=== PATIENT | male | born 1970 | race Caucasian/White ===

== ENCOUNTER 2018-10-18 15:29 | Emergency (ER) | payer OTHER ==
--- NOTE | 2018-10-18 15:38 | ERPHSYRPT ---
- History of Present Illness Time Seen by Provider: 10/18/18 15:37 Source: patient Exam Limitations: no limitations Physician History: 48 y/o morbidly obese white male with h/o renal failure on t,, sat dialysis copd and hyperkalemia. pt continues to smoke. pt was having worsening sx of soa and leg cramps over last 24 hours. legs were hurting. last time this happened he was found to have hyperkalemia. pts reference and instruction librarian is dr. barbra dawson but pt and family would like to be transferred to [facility] if necessary as it is more convenient for them. pt does not make urine. pt has had cardiac arrest secondary to elevated potassium levels in the past Timing/Duration: today Activities at Onset: none Severity of Dyspnea-Max: mild Severity of Dyspnea-Current: mild Possible Cause: occasional episodes Associated Symptoms: muscle spasms feet ( and legs) Allergies/Adverse Reactions: ciprofloxacin [From Cipro] Allergy (Severe, Verified 09/23/15 19:42) Difficulty Breathing ciprofloxacin HCl [From Cipro] Allergy (Severe, Verified 09/23/15 19:42) Difficulty Breathing etodolac [From Lodine] Allergy (Severe, Verified 09/23/15 19:42) Difficulty Breathing Home Medications: Allopurinol 300 mg [Zyloprim 300 mg] 300 mg PO DAILY 03/07/13 [History] Citalopram Hydrobromide 20 mg* [ceLEXa 20 MG] 10 mg PO DAILY 03/07/13 [ History] Sevelamer Carbonate [Renvela] 4 tab PO AC 03/07/13 [History] Amlodipine Besylate 5 mg [Norvasc 5 mg] 10 mg PO DAILY 10/18/18 [History] Calcium Acetate 2 cap PO TID 10/18/18 [History] Carvedilol 25 mg PO BID 10/18/18 [History] PANTOPRAZOLE 40 mg Tablet [Protonix 40MG Tablet] 40 mg PO QAM 10/18/18 [ History] Hx Tetanus, Diphtheria Vaccination/Date Given: Yes Hx Influenza Vaccination/Date Given: Yes Hx Pneumococcal Vaccination/Date Given: Yes - Review of Systems Constitutional: No Symptoms Eyes: No Symptoms Ears, Nose, & Throat: No Symptoms Respiratory: Dyspnea Abdominal/Gastrointestinal: Nausea, No Abdominal Pain, No Vomiting, No Diarrhea Genitourinary Symptoms: No Symptoms Musculoskeletal: Myalgias Skin: No Symptoms Neurological: No Symptoms Psychological: Anxiety Endocrine: No Symptoms Hematologic/Lymphatic: No Symptoms Immunological/Allergic: No Symptoms All Other Systems: Reviewed and Negative - Past Medical History Pertinent Past Medical History: Yes Neurological History: No Pertinent History ENT History: No Pertinent History Cardiac History: Hypertension Respiratory History: Asthma Endocrine Medical History: No Pertinent History Musculoskeletal History: No Pertinent History GI Medical History: GERD History: Dialysis, Renal Disease Psycho-Social History: No Pertinent History Male Reproductive Disorders: No Pertinent History Other Medical History: LEFT AV FISTULA - Past Surgical History Past Surgical History: Yes Neuro Surgical History: No Pertinent History Cardiac: No Pertinent History Respiratory: No Pertinent History Gastrointestinal: No Pertinent History Genitourinary: Other Musculoskeletal: No Pertinent History Male Surgical History: No Pertinent History Other Surgical History: bladder scope - renal biopsy - fistula and then graft - permacath - Social History Smoking Status: Former smoker Exposure to second hand smoke: No Drug Use: none Patient Lives Alone: No - Nursing Vital Signs Nursing Vital Signs: Initial Vital Signs Pulse Rate 46 L 10/18/18 15:30 Blood Pressure 158/91 10/18/18 15:30 O2 Sat by Pulse Oximetry 100 10/18/18 15:30 Pain Scale Pain Intensity 0 - Physical Exam General Appearance: mild distress, alert, anxiety Eye Exam: PERRL/EOMI Ears, Nose, Throat Exam: hearing grossly normal, normal ENT inspection, normal pharynx Neck Exam: normal inspection, non-tender, supple, full range of motion Respiratory Exam: normal breath sounds, lungs clear, airway intact, No chest tenderness, No respiratory distress Cardiovascular/Chest Exam: normal heart sounds, regular rate/rhythm Abdominal/Gastrointestinal Exam: soft, normal bowel sounds, No tenderness Rectal Exam: not done Extremity Exam: non-tender, normal range of motion, normal inspection Neurologic Exam: alert, oriented x 3, cooperative, pediatric oncologist II-XII nml as tested, normal mood/affect, nml cerebellar function Skin Exam: normal color, warm, dry Lymphatic Exam: No adenopathy SpO2 Interpretation: normal SpO2: 100 O2 Delivery: Room Air - Course Nursing assessment & vital signs reviewed: Yes EKG Interpreted by Me: RATE (44), Sinus Rhythm, Right Bundle Branch Block, Non- specific ST Changes, Other (comparison ekg on 10/13/14. all new findings. ekg on 10/13/14 all normal ) Ordered Tests: Active Orders 24 hr Category Date Time Status Material Loader STAT Care 10/18/18 15:40 Active EKG-ER Only STAT Care 10/18/18 15:40 Active IV Insertion STAT Care 10/18/18 15:40 Active Pulse Oximetry (ED) STAT Care 10/18/18 15:40 Active CHEST 1 VIEW (PORTABLE) Stat Exams 10/18/18 15:47 Completed CBC W DIFF Stat Lab 10/18/18 15:40 Completed CMP Stat Lab 10/18/18 15:40 Completed D-DIMER QUANTITATION Stat Lab 10/18/18 15:40 Completed NT PRO BNP Stat Lab 10/18/18 15:40 Completed PROTIME WITH INR Stat Lab 10/18/18 15:40 Completed TROPONIN Q3H Lab 10/18/18 15:40 Completed TROPONIN Q3H Lab 10/18/18 18:45 Ordered TROPONIN Q3H Lab 10/18/18 21:45 Ordered TROPONIN Q3H Lab 10/19/18 00:45 Ordered TROPONIN Q3H Lab 10/19/18 03:45 Ordered Peak Expiratory Flow Rate ONCE RT 10/18/18 16:32 Active Respiratory Therapy Assessment STAT RT 10/18/18 16:32 Active Medication Summary Generic Name Dose Route Start Last Admin Trade Name Freq PRN Reason Stop Dose Admin Sodium Chloride 50 ml 10/18/18 18:15 Sodium Chloride 0.9% 50 Ml IV 11/17/18 18:14 1XONLY CANDICE Discontinued Medications Generic Name Dose Route Start Last Admin Trade Name Freq PRN Reason Stop Dose Admin Albuterol Sulfate Confirm 10/18/18 16:28 Proventil 2.5 Mg/3 Ml Neb Administered 10/18/18 16:29 Dose 2.5 mg IH .STK-MED ONE Albuterol Sulfate 2.5 mg 10/18/18 16:31 10/18/18 16:30 Proventil 2.5 Mg/3 Ml Neb IH 10/18/18 16:32 2.5 mg STAT ONE Administration Calcium Chloride 1,000 mg 10/18/18 16:30 10/18/18 16:53 Calcium Chloride 10% 1000 Mg IV 10/18/18 16:31 1,000 mg STAT ONE Administration Calcium Chloride Confirm 10/18/18 16:40 Calcium Chloride 10% 1000 Mg Administered 10/18/18 16:41 Dose 1,000 mg .ROUTE .STK-MED ONE Dextrose 50 ml 10/18/18 17:28 10/18/18 17:34 D50w 50 Ml Abboject IV 10/18/18 17:29 50 ml STAT ONE Administration Dextrose Confirm 10/18/18 17:32 D50w 50 Ml Abboject Administered 10/18/18 17:33 Dose 50 ml IV .STK-MED ONE Sodium Chloride Confirm 10/18/18 16:43 Sodium Chloride 0.9% 50 Ml Administered 10/18/18 16:44 Dose 50 mls @ ud IV .STK-MED ONE Insulin Human Regular 4 unit 10/18/18 17:29 10/18/18 17:34 Novolin R IV 10/18/18 17:30 4 unit STAT ONE Administration Insulin Human Regular Confirm 10/18/18 17:31 Novolin R Administered 10/18/18 17:32 Dose 4 unit .ROUTE .STK-MED ONE Ondansetron HCl 4 mg 10/18/18 16:04 10/18/18 16:12 Zofran 4 Mg/2 Ml Vial IV 10/18/18 16:05 4 mg STAT ONE Administration Ondansetron HCl Confirm 10/18/18 16:10 Zofran 4 Mg/2 Ml Vial Administered 10/18/18 16:11 Dose 4 mg .ROUTE .STK-MED ONE Sodium Chloride 50 ml 10/18/18 17:33 Sodium Chloride 0.9% 50 Ml IV 10/18/18 17:34 1XONLY STA Sodium Polystyrene Sulfonate 30 g 10/18/18 16:32 10/18/18 16:53 Kayexylate 15 Gm/60 Ml PO 10/18/18 16:33 Not Given STAT ONE Sodium Polystyrene Sulfonate Confirm 10/18/18 16:40 Kayexylate 15 Gm/60 Ml Administered 10/18/18 16:41 Dose 30 g .ROUTE .STK-MED ONE Lab/Rad Data: Laboratory Result Diagrams 10/18/18 15:40 10/18/18 15:40 Laboratory Results 10/18/18 10/18/18 10/18/18 Range/Units 15:40 15:40 15:40 WBC (4.0-10.5) K/mm3 RBC (4.1-5.6) M/mm3 Hgb (12.5-18.0) gm/dl Hct (42-50) % MCV (78-100) fl MCH (26-32) pg MCHC (32-36) g/dl RDW (11.5-14.0) % Plt Count (150-450) K/mm3 MPV (6-9.5) fl Gran % (36.0-66.0) % Eos # (Auto) (0-0.5) Absolute Lymphs (auto) (1.0-4.6) Absolute Monos (auto) (0.0-1.3) Lymphocytes % (24.0-44.0) % Monocytes % (0.0-12.0) % Eosinophils % (0.00-5.0) % Basophils % (0.0-0.4) % Absolute Granulocytes (1.4-6.9) Basophils # (0-0.4) PT 12.7 (8.83-12.87) SECONDS INR 1.09 (0.8-3.0) D-Dimer 477 (215-500) ng/mL Sodium 133 L (137-145) mmol/L Potassium 7.9 H* (3.5-5.1) mmol/L Chloride 87 L (98-107) mmol/L Carbon Dioxide 25 (22-30) mmol/L Anion Gap 28.5 H (5-15) MEQ/L BUN 73 H (9-20) mg/dL Creatinine 14.58 H (0.66-1.25) mg/dL Estimated GFR 3.8 ML/MIN Glucose 100 (74-106) mg/dL Calcium 8.3 L (8.4-10.2) mg/dL Total Bilirubin 1.00 (0.2-1.3) mg/dL AST 24 (17-59) U/L ALT 20 (0-50) U/L Alkaline Phosphatase 160 H (38-126) U/L Troponin I 0.034 (0.000-0.034) ng/mL NT-Pro-B Natriuret Pep 9960 H (0-450) pg/mL Serum Total Protein 8.1 (6.3-8.2) g/dL Albumin 4.8 (3.5-5.0) g/dL 10/18/18 Range/Units 15:40 WBC 8.0 (4.0-10.5) K/mm3 RBC 4.08 L (4.1-5.6) M/mm3 Hgb 13.4 (12.5-18.0) gm/dl Hct 38.4 L (42-50) % MCV 94.1 (78-100) fl MCH 32.8 H (26-32) pg MCHC 34.9 (32-36) g/dl RDW 13.9 (11.5-14.0) % Plt Count 205 (150-450) K/mm3 MPV 11.2 H (6-9.5) fl Gran % 69.8 H (36.0-66.0) % Eos # (Auto) 0.20 (0-0.5) Absolute Lymphs (auto) 1.43 (1.0-4.6) Absolute Monos (auto) 0.74 (0.0-1.3) Lymphocytes % 17.9 L (24.0-44.0) % Monocytes % 9.3 (0.0-12.0) % Eosinophils % 2.5 (0.00-5.0) % Basophils % 0.5 (0.0-0.4) % Absolute Granulocytes 5.59 (1.4-6.9) Basophils # 0.04 (0-0.4) PT (8.83-12.87) SECONDS INR (0.8-3.0) D-Dimer (215-500) ng/mL Sodium (137-145) mmol/L Potassium (3.5-5.1) mmol/L Chloride (98-107) mmol/L Carbon Dioxide (22-30) mmol/L Anion Gap (5-15) MEQ/L BUN (9-20) mg/dL Creatinine (0.66-1.25) mg/dL Estimated GFR ML/MIN Glucose (74-106) mg/dL Calcium (8.4-10.2) mg/dL Total Bilirubin (0.2-1.3) mg/dL AST (17-59) U/L ALT (0-50) U/L Alkaline Phosphatase (38-126) U/L Troponin I (0.000-0.034) ng/mL NT-Pro-B Natriuret Pep (0-450) pg/mL Serum Total Protein (6.3-8.2) g/dL Albumin (3.5-5.0) g/dL - Progress Progress: improved, re-examined Air Movement: good Progress Note: 10/18/18 18:[address] Meier, reference and instruction librarian at [facility]. reviewed pt hx, condition, labs, ekg results. he accepts pt in transfer. he wants pt to receive kayexylate. pt refused earlier. i will give pt pre kayexylate iv pepcid and dilaudid. Blood Culture(s) Obtained: No Antibiotics given: No Counseled pt/family regarding: lab results, diagnosis, need for follow-up - Departure Departure Disposition: Transfer Clinical Impression: Hyperkalemia, Renal failure Condition: Stable Critical Care Time: Yes Critical Care Time(excluding separately billable procedures): 30-74 minutes Referrals: MIKAEL MIGUEL [Primary Care Provider] -
[2018-10-18 15:46] LABS: BASOPHIL % 0.5 % (0.0-0.4); Basophil (Absolute #) 0.04 (0-0.4); Eosinophil % 2.5 % (0.00-5.0); Granulocyte Absolute (ANC) 5.59 (1.4-6.9); Granulocytes % 69.8 % (36.0-66.0); Hematocrit 38.4 % (42-50); Hemoglobin 13.4 gm/dl (12.5-18.0); Lymphocyte (Absolute #) 1.43 (1.0-4.6); Lymphocytes % 17.9 % (24.0-44.0); Mean Cell Volume 94.1 fl (78-100); Mean Corpuscular Hemoglobin 32.8 pg (26-32); Mean Corpuscular Hgb Concent. 34.9 g/dl (32-36); Mean Platelet Volume 11.2 fl (6-9.5); Monocyte (Absolute #) 0.74 (0.0-1.3); Monocytes % 9.3 % (0.0-12.0); Platelet Count 205 K/mm3 (150-450); Red Blood Count 4.08 M/mm3 (4.1-5.6); Red Cell Distribution Width 13.9 % (11.5-14.0)
[2018-10-18 15:50] LABS: INR 1.09 (0.8-3.0); PROTIME 12.7 SECONDS (8.83-12.87)
[2018-10-18] MEDS ORDERED: Zofran 4 MG/2 ML VIAL IV ONE (16:04)
--- NOTE | 2018-10-18 16:09 | XRAY ---
Indication: Short of breath. Comparison: August 09, 2015. Portable chest less inflated again with calcified granulomas. No focal infiltrate, consolidation, or large effusion. Heart remains borderline enlarged. Vascularity normal. Bony thorax intact. Impression: Nonacute chest with chronic features.
[2018-10-18] MEDS ORDERED: Zofran 4 MG/2 ML VIAL ONE (16:10)
[2018-10-18 16:22] LABS: ALBUMIN 4.8 g/dL (3.5-5.0); ANION GAP 28.5 MEQ/L (5-15); Calcium 8.3 mg/dL (8.4-10.2); Total Protein 8.1 g/dL (6.3-8.2)
[2018-10-18 16:23] LABS: Creatinine 1 14.58 mg/dL (0.66-1.25)
[2018-10-18 16:25] LABS: Potassium 7.9 mmol/L (3.5-5.1)
[2018-10-18] MEDS ORDERED: PROVENTIL 2.5 MG/3 ML NEB IH ONE ×2 (16:28→16:31)
[2018-10-18] MEDS ORDERED: CALCIUM CHLORIDE 10% 1000 MG IV ONE (16:30)
[2018-10-18] MEDS ORDERED: Kayexylate 15 GM/60 ML PO ONE ×2 (16:32→18:39)
[2018-10-18] MEDS ORDERED: Kayexylate 15 GM/60 ML ONE (16:40)
[2018-10-18] MEDS ORDERED: CALCIUM CHLORIDE 10% 1000 MG ONE (16:40)
[2018-10-18] MEDS ORDERED: D50W 50 ml Abboject IV ONE ×2 (17:28→17:32)
[2018-10-18] MEDS ORDERED: NovoLIN R IV ONE (17:29)
[2018-10-18] MEDS ORDERED: NovoLIN R ONE (17:31)
[2018-10-18] MEDS ORDERED: Sodium Chloride 0.9% 50 ML IV STA (17:33)
[2018-10-18 18:15] VITALS: BP 118/81; PULSE 58
[2018-10-18] MEDS ORDERED: Sodium Chloride 0.9% 50 ML IV SCH (18:15)
[2018-10-18 18:39] VITALS: O2SAT 100
[2018-10-18] MEDS ORDERED: Pepcid 20 MG VIAL IV ONE ×2 (18:39→18:57)
[2018-10-18] MEDS ORDERED: Hydromorphone 1 mg/ml Ampule IV ONE (18:40)
[2018-10-18] MEDS ORDERED: Hydromorphone 1 mg/ml Ampule ONE (18:58)
== END 2018-10-18 19:15 | disposition short-term general hospital (02) ==
LOC: ED 15:29
DX: E87.5 Hyperkalemia (principal); N19 Unspecified kidney failure; Z99.2 Dependence on renal dialysis; J44.9 Chronic obstructive pulmonary disease, unspecified; M62.838 Other muscle spasm; F41.9 Anxiety disorder, unspecified; K21.9 Gastro-esophageal reflux disease without esophagitis; I10 Essential (primary) hypertension; J45.909 Unspecified asthma, uncomplicated; Z79.899 Other long term (current) drug therapy
CPT/HCPCS: 36000; 36415; 71045; 80053; 83880; 84484; 85025; 85379; 85610; 93005; 93041; 94150; 94640; 96374; 96375; 99285; J1170; J2405; J7609; A9270-GY

== ENCOUNTER 2018-10-26 16:39 | Emergency (ER) | payer OTHER ==
[2018-10-26 18:35] VITALS: BP 119/83; PULSE 79; O2SAT 95
[2018-10-26] MEDS ORDERED: Erythromycin 3.5 GM OPHTH. OP ONE (19:19)
[2018-10-26] MEDS ORDERED: NORCO 5/325 MG PO ONE (19:19)
[2018-10-26] MEDS ORDERED: Visine OPHTHALMIC 15 ML OP ONE (19:20)
--- NOTE | 2018-10-26 19:35 | ERPHSYRPT ---
- History of Present Illness Time Seen by Provider: 10/26/18 19:00 Source: patient, family Patient Subjective Stated Complaint: states left eye pain since yesterday. denies any injury. Triage Nursing Assessment: ambulated to room per self. skin w/d, color sallow. hx ckd and does dialysis. wears bifocals. eye test completed. has small yellow area noted left of pupil. no drainage noted. Physician History: 48 y/o white male presents with lateral eye burning, pain and fb sensation. no known injury. Timing/Duration: today Location: left eye Severity: mild Apparent Injury: no Associated Symptoms: pain, burning, redness, foreign body sensation Visual Assistive Devices: Glasses Chemical Exposure: No Allergies/Adverse Reactions: ciprofloxacin [From Cipro] Allergy (Severe, Verified 10/26/18 17:08) Difficulty Breathing ciprofloxacin HCl [From Cipro] Allergy (Severe, Verified 10/26/18 17:08) Difficulty Breathing etodolac [From Lodine] Allergy (Severe, Verified 10/26/18 17:08) Difficulty Breathing Home Medications: Allopurinol 300 mg [Zyloprim 300 mg] 300 mg PO DAILY 03/07/13 [History] Citalopram Hydrobromide 20 mg* [ceLEXa 20 MG] 10 mg PO DAILY 03/07/13 [ History] Sevelamer Carbonate [Renvela] 4 tab PO AC 03/07/13 [History] Amlodipine Besylate 5 mg [Norvasc 5 mg] 10 mg PO DAILY 10/18/18 [History] Calcium Acetate 2 cap PO TID 10/18/18 [History] Carvedilol 25 mg PO BID 10/18/18 [History] PANTOPRAZOLE 40 mg Tablet [Protonix 40MG Tablet] 40 mg PO QAM 10/18/18 [ History] Hx Tetanus, Diphtheria Vaccination/Date Given: No Hx Influenza Vaccination/Date Given: Yes Hx Pneumococcal Vaccination/Date Given: Yes Immunizations Up to Date: No - Review of Systems Constitutional: No Symptoms Eyes: Eye Pain, Eye Redness, Foreign Body Sensation Ears, Nose, & Throat: No Symptoms Respiratory: No Symptoms Cardiac: No Symptoms Abdominal/Gastrointestinal: No Symptoms Genitourinary Symptoms: No Symptoms Musculoskeletal: No Symptoms Skin: No Symptoms Neurological: No Symptoms Psychological: No Symptoms Endocrine: No Symptoms Hematologic/Lymphatic: No Symptoms Immunological/Allergic: No Symptoms All Other Systems: Reviewed and Negative - Past Medical History Pertinent Past Medical History: Yes Neurological History: No Pertinent History ENT History: No Pertinent History Cardiac History: Hypertension Respiratory History: Asthma Endocrine Medical History: No Pertinent History Musculoskeletal History: No Pertinent History GI Medical History: GERD History: Dialysis, Renal Disease Psycho-Social History: No Pertinent History Male Reproductive Disorders: No Pertinent History Other Medical History: LEFT AV FISTULA - Past Surgical History Past Surgical History: Yes Neuro Surgical History: No Pertinent History Cardiac: No Pertinent History Respiratory: No Pertinent History Gastrointestinal: No Pertinent History Genitourinary: Other Musculoskeletal: No Pertinent History Male Surgical History: No Pertinent History Other Surgical History: bladder scope - renal biopsy - fistula and then graft - permacath - Social History Smoking Status: Current every day smoker How long have you smoked: 1/2 Exposure to second hand smoke: Yes Drug Use: none Patient Lives Alone: No - Nursing Vital Signs Nursing Vital Signs: Initial Vital Signs Temperature 99 F 10/26/18 16:54 Pulse Rate 89 10/26/18 16:54 Respiratory Rate 20 10/26/18 16:54 Blood Pressure 110/81 10/26/18 16:54 O2 Sat by Pulse Oximetry 97 10/26/18 16:54 Pain Scale Pain Intensity 8 - Physical Exam General Appearance: mild distress, alert, anxiety Vision Acuity Degree Evaluation Phase: Corrected Vision Acuity Right Eye: 20/15 Vision Acuity Left Eye: 20/30 Eye Exam: left eye: normal inspection, PERRL, EOMI, conjunctival inflammation, corneal abrasion (lateral) Ears, Nose, Throat Exam: normal ENT inspection, moist mucous membranes Neck Exam: normal inspection, non-tender, supple, full range of motion Respiratory Exam: normal breath sounds, lungs clear, airway intact, No chest tenderness, No respiratory distress Gastrointestinal Exam: soft, normal bowel sounds Extremity Exam: normal inspection, normal range of motion, pelvis stable Neurologic: alert, oriented x 3, cooperative, bee keeper II-XII nml as tested, normal mood/affect, nml cerebellar function, nml station & gait Skin Exam: normal color, warm, dry Lymphatic: No adenopathy SpO2 Interpretation: normal SpO2: 95 O2 Delivery: Room Air - Course Nursing assessment & vital signs reviewed: Yes Ordered Tests: Medication Summary Discontinued Medications Generic Name Dose Route Start Last Admin Trade Name Dayna PRN Reason Stop Dose Admin Hydrocodone Bitart/Acetaminophen 1 tab 10/26/18 19:19 [place] 5/325 Mg PO 10/26/18 19:20 STAT ONE Erythromycin 3.5 gm 10/26/18 19:19 Erythromycin 3.5 Gm Ophth. OP 10/26/18 19:20 STAT ONE Tetrahydrozoline HCl 4 ml 10/26/18 19:20 Visine Ophthalmic 15 Ml OP 10/26/18 19:21 STAT ONE - Progress Progress: improved, re-examined Counseled pt/family regarding: diagnosis, need for follow-up - Departure Departure Disposition: Home Clinical Impression: Left cornea abrasion Condition: Stable Critical Care Time: No Referrals: MIKAEL MIGUEL [Primary Care Provider] - Additional Instructions: follow up with ophthamologist for persistent symptoms Prescriptions: Erythromycin Base 3.5 gm [Erythromycin 3.5 GM OPHTH.] 3.5 gm OP QID #1 tube
[2018-10-26] MEDS ORDERED: TETRACAINE 0.5% STERI-UNIT SOL OP STA (19:57)
[2018-10-26] MEDS ORDERED: Erythromycin 1 GM ONE (19:58)
[2018-10-26] MEDS ORDERED: TETRACAINE 0.5% STERI-UNIT SOL OP ONE (19:58)
[2018-10-26] MEDS ORDERED: NORCO 5/325 MG ONE (19:59)
== END 2018-10-26 20:11 | disposition home or self-care (01) ==
LOC: ED 16:39
DX: S05.02XA Injury of conjunctiva and corneal abrasion without foreign body, left eye, initial encounter (principal); H57.12 Ocular pain, left eye; I12.9 Hypertensive chronic kidney disease with stage 1 through stage 4 chronic kidney disease, or unspecified chronic kidney disease; N18.9 Chronic kidney disease, unspecified; Z99.2 Dependence on renal dialysis
CPT/HCPCS: 99283; A9270-GY

== ENCOUNTER 2018-12-18 12:04 | Emergency (ER) | payer OTHER ==
[2018-12-18] MEDS ORDERED: KEFLEX 500 MG PO ONE (12:25)
--- NOTE | 2018-12-18 12:25 | ERPHSYRPT ---
- History of Present Illness Time Seen by Provider: 12/18/18 12:15 Source: patient Exam Limitations: no limitations Physician History: 48 y/o right handed white male presents with injury to right hand that occurred yesterday while working with wrench. swelling and bruising worse today. pt is a dialysis pt. Occurred: yesterday Method of Injury: direct blow Quality: aching, throbbing Severity of Pain-Max: mild Severity of Pain-Current: mild Extremities Pain Location: hand: right Modifying Factors: Improves With: movement Associated Symptoms: none Allergies/Adverse Reactions: ciprofloxacin [From Cipro] Allergy (Severe, Verified 10/26/18 17:08) Difficulty Breathing ciprofloxacin HCl [From Cipro] Allergy (Severe, Verified 10/26/18 17:08) Difficulty Breathing etodolac [From Lodine] Allergy (Severe, Verified 10/26/18 17:08) Difficulty Breathing Home Medications: Allopurinol 300 mg [Zyloprim 300 mg] 300 mg PO DAILY 03/07/13 [History] Citalopram Hydrobromide 20 mg* [ceLEXa 20 MG] 10 mg PO DAILY 03/07/13 [ History] Sevelamer Carbonate [Renvela] 4 tab PO AC 03/07/13 [History] Amlodipine Besylate 5 mg [Norvasc 5 mg] 10 mg PO DAILY 10/18/18 [History] Calcium Acetate 2 cap PO TID 10/18/18 [History] Carvedilol 25 mg PO BID 10/18/18 [History] PANTOPRAZOLE 40 mg Tablet [Protonix 40MG Tablet] 40 mg PO QAM 10/18/18 [ History] Hx Tetanus, Diphtheria Vaccination/Date Given: No Hx Influenza Vaccination/Date Given: Yes Hx Pneumococcal Vaccination/Date Given: Yes - Review of Systems Constitutional: No Symptoms Eyes: No Symptoms Ears, Nose, & Throat: No Symptoms Respiratory: No Symptoms Cardiac: No Symptoms Abdominal/Gastrointestinal: No Symptoms Genitourinary Symptoms: No Symptoms Musculoskeletal: Injury (right hand) Skin: Other (abrasion right middle) Neurological: No Symptoms Psychological: No Symptoms Endocrine: No Symptoms Hematologic/Lymphatic: No Symptoms Immunological/Allergic: No Symptoms All Other Systems: Reviewed and Negative - Past Medical History Pertinent Past Medical History: Yes Neurological History: No Pertinent History ENT History: No Pertinent History Cardiac History: Hypertension Respiratory History: Asthma Endocrine Medical History: No Pertinent History Musculoskeletal History: No Pertinent History GI Medical History: GERD History: Dialysis, Renal Disease Psycho-Social History: No Pertinent History Male Reproductive Disorders: No Pertinent History Other Medical History: LEFT AV FISTULA - Past Surgical History Past Surgical History: Yes Neuro Surgical History: No Pertinent History Cardiac: No Pertinent History Respiratory: No Pertinent History Gastrointestinal: No Pertinent History Genitourinary: Other Musculoskeletal: No Pertinent History Male Surgical History: No Pertinent History Other Surgical History: bladder scope - renal biopsy - fistula and then graft - permacath - Social History Smoking Status: Current every day smoker How long have you smoked: 1/2 Exposure to second hand smoke: Yes Drug Use: none Patient Lives Alone: No - Nursing Vital Signs Nursing Vital Signs: Initial Vital Signs Temperature 97.4 F 12/18/18 12:20 Pulse Rate 63 12/18/18 12:20 Respiratory Rate 18 12/18/18 12:20 Blood Pressure 126/75 12/18/18 12:20 O2 Sat by Pulse Oximetry 100 12/18/18 12:20 Pain Scale Pain Intensity 7 - Physical Exam General Appearance: no apparent distress, alert Eyes, Ears, Nose, Throat Exam: normal ENT inspection, moist mucous membranes Neck Exam: normal inspection, non-tender, supple, full range of motion Cardiovascular/Respiratory Exam: chest non-tender, no respiratory distress Abdominal Exam: non-tender Back Exam: normal inspection, normal range of motion, No CVA tenderness, No vertebral tenderness Shoulder Exam: normal inspection, non-tender, no evidence of injury, normal ROM Elbow/Forearm Exam: normal inspection, non-tender, no evidence of injury, normal ROM Wrist Exam: normal inspection, non-tender, no evidence of injury Hand Exam: abrasions (right middle finger), ecchymosis, soft tissue tenderness, swelling Neuro/Tendon Exam: normal sensation, normal motor functions, normal tendon functions, responds to pain Mental Status Exam: alert, oriented x 3, cooperative Skin Exam: abrasion, ecchymosis SpO2 Interpretation: normal O2 Delivery: Room Air Ordered Tests: Active Orders 24 hr Category Date Time Status HAND (MINIMUM 3 VIEWS) Stat Exams 12/18/18 12:25 Taken Medication Summary Discontinued Medications Generic Name Dose Route Start Last Admin Trade Name Freq PRN Reason Stop Dose Admin Cephalexin HCl 500 mg 12/18/18 12:25 12/18/18 12:56 Keflex 500 Mg PO 12/18/18 12:26 500 mg STAT ONE Administration Cephalexin HCl Confirm 12/18/18 12:55 Keflex 500 Mg Administered 12/18/18 12:56 Dose 500 mg .ROUTE .STK-MED ONE - Progress Progress: improved, re-examined Progress Note: 12/18/18 12:58 xray right hand-fx distal right 5th metacarpal Counseled pt/family regarding: diagnosis, need for follow-up, rad results - Departure Departure Disposition: Home Clinical Impression: Boxer's metacarpal fracture, neck, closed Condition: Stable Critical Care Time: No Referrals: MIKAEL MIGUEL [Primary Care Provider] - Additional Instructions: ice pack to right hand 3 times daily for 3 days. follow up with orthopedic of choice on Thursday12/20/18 for further management. take medications as prescribed. Prescriptions: Hydrocodone/APAP 5/325 [[place] 5/325 mg] 1 each PO Q8H PRN PRN #6 tablet MDD 3 PRN Reason: Pain Cephalexin Mh 500 mg [Keflex 500 mg] 500 mg PO TID #15 capsule
[2018-12-18 12:28] VITALS: BP 126/75; PULSE 63; O2SAT 100
[2018-12-18] MEDS ORDERED: KEFLEX 500 MG ONE (12:55)
[2018-12-18] MEDS ORDERED: NORCO 5/325 MG PO ONE (13:03)
[2018-12-18] MEDS ORDERED: NORCO 5/325 MG ONE (13:07)
--- NOTE | 2018-12-18 15:20 | XRAY ---
Indication: Pain following injury. Comparison: None 3 views of the right hand demonstrates mildly angulated distal 5th metacarpal shaft fracture with soft tissue swelling. No other bony, articular, or soft tissue abnormalities.
== END 2018-12-18 13:58 | disposition home or self-care (01) ==
LOC: ED 12:04
DX: S62.336A Displaced fracture of neck of fifth metacarpal bone, right hand, initial encounter for closed fracture (principal); S60.412A Abrasion of right middle finger, initial encounter; W22.8XXA Striking against or struck by other objects, initial encounter; I10 Essential (primary) hypertension; Z99.2 Dependence on renal dialysis; R58 Hemorrhage, not elsewhere classified
CPT/HCPCS: 29126; 73130; 99283; A9270-GY

== ENCOUNTER 2019-03-12 14:04 | Emergency (ER) | payer OTHER ==
[2019-03-12] MEDS ORDERED: Phenergan 25 MG INJ IM ONE (14:34)
[2019-03-12] MEDS ORDERED: ZOFRAN ODT 4 MG PO ONE (14:34)
[2019-03-12] MEDS ORDERED: Phenergan 25 MG INJ ONE ×2 (14:44→14:53)
[2019-03-12] MEDS ORDERED: ZOFRAN ODT 4 MG ONE ×2 (14:44→14:53)
[2019-03-12 15:09] LABS: BASOPHIL % 0.6 % (0.0-0.4); Basophil (Absolute #) 0.04 (0-0.4); Eosinophil (Absolute #) 0.14 (0-0.5); Granulocyte Absolute (ANC) 5.43 (1.4-6.9); Granulocytes % 78.1 % (36.0-66.0); Hematocrit 27.6 % (42-50); Hemoglobin 9.5 gm/dl (12.5-18.0); Lymphocyte (Absolute #) 0.87 (1.0-4.6); Lymphocytes % 12.5 % (24.0-44.0); Mean Cell Volume 96.2 fl (78-100); Mean Corpuscular Hemoglobin 33.1 pg (26-32); Mean Corpuscular Hgb Concent. 34.4 g/dl (32-36); Mean Platelet Volume 10.6 fl (6-9.5); Monocyte (Absolute #) 0.47 (0.0-1.3); Monocytes % 6.8 % (0.0-12.0); Platelet Count 117 K/mm3 (150-450); Red Blood Count 2.87 M/mm3 (4.1-5.6)
--- NOTE | 2019-03-12 15:13 | ERPHSYRPT ---
- History of Present Illness Time Seen by Provider: 03/12/19 15:11 Historian: patient Exam Limitations: no limitations Patient Subjective Stated Complaint: Pt woke with pain in medial upper epigastric region, belching, Triage Nursing Assessment: Pt brought in via a wheel chair, hypertensive, pulses normal, bowel sounds heard in all 4 quadrants, stomach not tender to palpatation, rates pain 7/10, does home dialysis 5x a week, last one was yesterday Physician History: Pt woke with pain in medial upper epigastric region, belching, Patient is on chronic hemodialysis at home Timing/Duration: today Quality: burning Abdominal Pain Onset Location: epigastric Pain Radiation: no radiation Severity of Pain-Max: mild Severity of Pain-Current: mild Modifying Factors: Improves With: nothing Associated Symptoms: other (belching) Previous symptoms: no prior history Allergies/Adverse Reactions: ciprofloxacin [From Cipro] Allergy (Severe, Verified 03/12/19 14:26) Difficulty Breathing ciprofloxacin HCl [From Cipro] Allergy (Severe, Verified 03/12/19 14:26) Difficulty Breathing etodolac [From Lodine] Allergy (Severe, Verified 03/12/19 14:26) Difficulty Breathing Home Medications: Allopurinol 300 mg [Zyloprim 300 mg] 300 mg PO DAILY 03/07/13 [History] Citalopram Hydrobromide 20 mg* [ceLEXa 20 MG] 10 mg PO DAILY 03/07/13 [ History] Sevelamer Carbonate [Renvela] 4 tab PO AC 03/07/13 [History] Calcium Acetate 2 cap PO TID 10/18/18 [History] Carvedilol 12.5 mg PO DAILY 10/18/18 [History] PANTOPRAZOLE 40 mg Tablet [Protonix 40MG Tablet] 40 mg PO QAM 10/18/18 [ History] Hx Tetanus, Diphtheria Vaccination/Date Given: No Hx Influenza Vaccination/Date Given: Yes Hx Pneumococcal Vaccination/Date Given: Yes - Review of Systems Constitutional: No Fever, No Chills Eyes: No Symptoms Ears, Nose, & Throat: No Symptoms Respiratory: No Cough, No Dyspnea Cardiac: No Chest Pain, No Edema, No Syncope Abdominal/Gastrointestinal: Abdominal Pain (epigastric), Other (belching), No Nausea, No Vomiting, No Diarrhea Genitourinary Symptoms: No Dysuria Musculoskeletal: No Back Pain, No Neck Pain Skin: No Rash Neurological: No Dizziness, No Focal Weakness, No Sensory Changes Psychological: No Symptoms Endocrine: No Symptoms All Other Systems: Reviewed and Negative - Past Medical History Pertinent Past Medical History: Yes Neurological History: No Pertinent History ENT History: No Pertinent History Cardiac History: Hypertension Respiratory History: Asthma Endocrine Medical History: No Pertinent History Musculoskeletal History: No Pertinent History GI Medical History: GERD History: Dialysis, Renal Disease Psycho-Social History: No Pertinent History Male Reproductive Disorders: No Pertinent History Other Medical History: LEFT AV FISTULA - Past Surgical History Past Surgical History: Yes Neuro Surgical History: No Pertinent History Cardiac: No Pertinent History Respiratory: No Pertinent History Gastrointestinal: No Pertinent History Genitourinary: Other Musculoskeletal: No Pertinent History Male Surgical History: No Pertinent History Other Surgical History: bladder scope - renal biopsy - fistula and then graft - permacath - Social History Smoking Status: Current every day smoker How long have you smoked: 17 years o Exposure to second hand smoke: Yes Drug Use: none Patient Lives Alone: No - Nursing Vital Signs Nursing Vital Signs: Initial Vital Signs Temperature 98.6 F 03/12/19 14:13 Pulse Rate 68 03/12/19 14:13 Blood Pressure 167/91 03/12/19 14:13 O2 Sat by Pulse Oximetry 97 03/12/19 14:13 Pain Scale Pain Intensity 7 - Physical Exam General Appearance: no apparent distress, alert Eye Exam: PERRL/EOMI, eyes nml inspection Ears, Nose, Throat Exam: normal ENT inspection, pharynx normal, moist mucous membranes Neck Exam: normal inspection, non-tender, supple, full range of motion Respiratory Exam: normal breath sounds, lungs clear, No respiratory distress Cardiovascular Exam: regular rate/rhythm, normal heart sounds Gastrointestinal/Abdomen Exam: soft, No tenderness, No mass Back Exam: normal inspection, normal range of motion, No CVA tenderness, No vertebral tenderness Extremity Exam: normal inspection, normal range of motion, pelvis stable Neurologic Exam: alert, oriented x 3, cooperative, normal mood/affect, nml cerebellar function, sensation nml, No motor deficits Skin Exam: normal color, warm, dry SpO2: 97 - Course Nursing assessment & vital signs reviewed: Yes EKG Interpreted by Me: Sinus Rhythm - Radiology Exams Abdomen X-ray Interpretation: Reviewed by me (no acute changes, nonspecific bowel gas ) Ordered Tests: Active Orders 24 hr Category Date Time Status EKG-ER Only STAT Care 03/12/19 14:36 Active OBSTR/ACUTE ABDOMEN SERIES Stat Exams 03/12/19 14:35 Ordered AMYLASE Stat Lab 03/12/19 14:53 Completed CBC W DIFF Stat Lab 03/12/19 14:53 Completed CMP Stat Lab 03/12/19 14:53 Completed LIPASE Stat Lab 03/12/19 14:53 Completed Lactic Acid Stat Lab 03/12/19 14:34 Ordered TROPONIN Q3H Lab 03/12/19 14:53 Completed TROPONIN Q3H Lab 03/12/19 17:45 Ordered TROPONIN Q3H Lab 03/12/19 20:45 Ordered TROPONIN Q3H Lab 03/12/19 23:45 Ordered TROPONIN Q3H Lab 03/13/19 02:45 Ordered Medication Summary Discontinued Medications Generic Name Dose Route Start Last Admin Trade Name Freq PRN Reason Stop Dose Admin Ondansetron HCl 4 mg 03/12/19 14:34 03/12/19 14:55 Zofran Odt 4 Mg PO 03/12/19 14:35 4 mg STAT ONE Administration Ondansetron HCl Confirm 03/12/19 14:44 Zofran Odt 4 Mg Administered 03/12/19 14:45 Dose 4 mg .ROUTE .STK-MED ONE Ondansetron HCl Confirm 03/12/19 14:53 Zofran Odt 4 Mg Administered 03/12/19 14:54 Dose 4 mg .ROUTE .STK-MED ONE Promethazine HCl 25 mg 03/12/19 14:34 03/12/19 14:56 Phenergan 25 Mg Inj IM 03/12/19 14:35 25 mg STAT ONE Administration Promethazine HCl Confirm 03/12/19 14:44 Phenergan 25 Mg Inj Administered 03/12/19 14:45 Dose 25 mg .ROUTE .STK-MED ONE Promethazine HCl Confirm 03/12/19 14:53 Phenergan 25 Mg Inj Administered 03/12/19 14:54 Dose 25 mg .ROUTE .STK-MED ONE Lab/Rad Data: Laboratory Result Diagrams 03/12/19 14:53 03/12/19 14:53 Laboratory Results 03/12/19 03/12/19 03/12/19 Range/Units 14:53 14:53 14:53 WBC 7.0 (4.0-10.5) K/mm3 RBC 2.87 L (4.1-5.6) M/mm3 Hgb 9.5 L (12.5-18.0) gm/dl Hct 27.6 L (42-50) % MCV 96.2 (78-100) fl MCH 33.1 H (26-32) pg MCHC 34.4 (32-36) g/dl RDW 13.0 (11.5-14.0) % Plt Count 117 L (150-450) K/mm3 MPV 10.6 H (6-9.5) fl Gran % 78.1 H (36.0-66.0) % Eos # (Auto) 0.14 (0-0.5) Absolute Lymphs (auto) 0.87 L (1.0-4.6) Absolute Monos (auto) 0.47 (0.0-1.3) Lymphocytes % 12.5 L (24.0-44.0) % Monocytes % 6.8 (0.0-12.0) % Eosinophils % 2.0 (0.00-5.0) % Basophils % 0.6 (0.0-0.4) % Absolute Granulocytes 5.43 (1.4-6.9) Basophils # 0.04 (0-0.4) Sodium 137 (137-145) mmol/L Potassium 4.5 (3.5-5.1) mmol/L Chloride 90 L (98-107) mmol/L Carbon Dioxide 29 (22-30) mmol/L Anion Gap 21.6 H (5-15) MEQ/L BUN 68 H (9-20) mg/dL Creatinine 12.42 H (0.66-1.25) mg/dL Estimated GFR 4.6 ML/MIN Glucose 97 (74-106) mg/dL Calcium 8.2 L (8.4-10.2) mg/dL Total Bilirubin 0.80 (0.2-1.3) mg/dL AST 23 (17-59) U/L ALT 17 (0-50) U/L Alkaline Phosphatase 148 H (38-126) U/L Troponin I 0.033 (0.000-0.034) ng/mL Serum Total Protein 8.1 (6.3-8.2) g/dL Albumin 4.6 (3.5-5.0) g/dL Amylase 98 (30-110) U/L Lipase 98 (23-300) U/L - Progress Progress: improved, pain not gone completely Counseled pt/family regarding: lab results, diagnosis, need for follow-up - Departure Departure Disposition: Home Clinical Impression: Belching symptom, Abdominal pain, acute, epigastric Acute on chronic renal failure Qualifiers: Acute renal failure type: unspecified Chronic kidney disease stage: on chronic dialysis Qualified Code(s): N17.9 - Acute kidney failure, unspecified Condition: Stable Critical Care Time: Yes Critical Care Time(excluding separately billable procedures): Critical 30-74 mins Referrals: MIKAEL MIGUEL [Primary Care Provider] - Instructions: Acute Abdomen (Belly Pain), Acute Abdomen (Belly Pain), Adult (DC ), Dialysis and Diet Additional Instructions: Discharge/Care Plan EVA URBANO was seen on 03/12/19 in the Emergency Room. The patient was counseled regarding Diagnosis,Lab results, Imaging studies, need for follow up and when to return to the Emergency Room. Prescriptions given: Discharge Note I have spoken with the patient and/or caregivers. I have explained the patient' s condition, diagnosis and treatment plan based on the information available to me at this time. I have answered the patient's and/or caregiver's questions and addressed any concerns. The patient and/or caregivers have as good understanding of the patient's diagnosis, condition and treatment plan as can be expected at this point. The vital signs have been stable. The patient's condition is stable and appropriate for discharge from the emergency department. The patient will pursue further outpatient evaluation with the primary care physician or other designated or consulting physician as outlined in the discharge instructions. The patient and/or caregivers are agreeable to this plan of care and follow-up instructions have been explained in detail. The patient and/or caregivers have received these instruction. The patient/and or caregivers are aware that any significant change in condition or worsening of symptoms should prompt an immediate return to this or the closest emergency department or call 911. EVA URBANO was seen on 03/12/19 n the Emergency Room. At that time you were treated for an emergent condition, during your visit Laboratory, Radiology and/or other procedures may have been ordered. It is very important that you follow-up with your Primary Care Physician MIKAEL MIGUEL within the next 24-48 hours to review your Emergency Room visit and the final results of testing that was ordered. Some test results such as Urine Cultures, Blood Cultures, and other cultures if ordered will not be finalized for 24-48 hours. If you do not have a Primary Care Provider please call the medical records department at [phone] ext [phone] to obtain a copy of your results or you may sign into our patient portal to obtain these results by visiting us @ [email or web address] and completing the following steps: 1. Click on the Patient Portal link 2. Click the Patient Self Enrollment Link to complete the enrollment form and entering your 3. Once the enrollment form is completed you will receive an email with a temporary ID and password at the email address you provided. 4. Next choose a user name and password. Your user name must be at least 4 characters long and your password must be at least 4 characters long. 5. Choose a security question from the list and provide your answer to the question. If you already have signed into the Health Portal you may access your Health Care Information 26/01 by the following steps: 1. Login to our website @ [email or web address] 2. Enter your original user name and password. FAQS The [facility] Health Portal is an online tool that contains your Lab Results, Radiology Reports, Visit History, Discharge Instructions and Health Summary Lab and Radiology Results will not be available for 72 hours on the portal. The Portal is a secure site, passwords are encryted and URLs are re-written so they cannot be copied and pasted. You and authorized family members are the only ones who can access your Portal. Also there is a timeout feature that protects your information if you leave the Portal page open. If you have technical difficulty please use the Contact Us link on the page this will allow you to submit any questions you have regarding the Portal or you may contact the Medical Record Department at [phone] ext [phone]. Prescriptions: Promethazine HCl 25 mg [Phenergan 25 mg] 25 mg PO Q6H PRN #30 tablet PRN Reason: Nausea/Vomiting PANTOPRAZOLE 40 mg Tablet [Protonix 40MG Tablet] 40 mg PO DAILY #30 tab
[2019-03-12 15:14] LABS: ALBUMIN 4.6 g/dL (3.5-5.0); ANION GAP 21.6 MEQ/L (5-15); BILIRUBIN,TOTAL 0.8 mg/dL (0.2-1.3); Calcium 8.2 mg/dL (8.4-10.2); Creatinine 1 12.42 mg/dL (0.66-1.25); Potassium 4.5 mmol/L (3.5-5.1); Total Protein 8.1 g/dL (6.3-8.2)
[2019-03-12 15:44] VITALS: BP 191/109; PULSE 71; O2SAT 99
--- NOTE | 2019-03-12 19:17 | XRAY ---
Indication: Epigastric pain. Nausea. Comparison: Portable chest October 18, 2018. 2 views of the abdomen demonstrates nonspecific nonobstructed bowel gas pattern. No large free air. Solid organs unremarkable. Osseous structures intact. Single PA chest demonstrates normal heart and lungs again with a few incidental calcified granulomas. Bony thorax intact again with old right 4/5 rib fractures. Impression: Nonacute nonobstructed abdomen. Stable nonacute one view chest again with chronic features.
== END 2019-03-12 15:43 | disposition home or self-care (01) ==
LOC: ED 14:04
DX: R14.2 Eructation (principal); R10.13 Epigastric pain; N17.9 Acute kidney failure, unspecified; Z99.2 Dependence on renal dialysis
CPT/HCPCS: 36415; 74022; 80053; 82150; 83605; 83690; 84484; 85025; 93005; 96372; 99284; 99291; J2550; Q0162

== ENCOUNTER 2019-06-28 23:11 | Emergency (ER) | payer OTHER ==
--- NOTE | 2019-06-28 23:43 | ERPHSYRPT ---
- History of Present Illness Time Seen by Provider: 06/28/19 23:30 Historian: patient, family Patient Subjective Stated Complaint: pt states while doing hemodialysis at home , he began getting dizzy and felt like passing out. c/o mild chest pain 09/12 also Triage Nursing Assessment: pt alert and oriented. answers questions approp. pt ambulatory with steady gait noted. respirations nonlabored with exp wheezing noted throughout, skin warm and dry. fistula noted to lt forearm with drsg present. pupils equal and reactive. bilat upper and lower ext strength equal and wnl. heart rate 88 on monitor- sinus rhythm Physician History: 49 y/o white male with h/o renal failure on home hemodialysis presents with 1 hour h/o central substernal nonradiating ache just after completing his home dialysis session. pt has no documented cardiac dz, but, has had cardiac arrest secondary to hyperkalemia in the past. pain is nearly gone upon arrival here. Timing/Duration: today Activities at Onset: other (hemodialysis) Quality: aching Location: substernal, central Chest Pain Radiation: no radiation Severity of Pain-Max: mild Severity of Pain-Current: none Associated Symptoms: denies symptoms Prior Chest Pain/Cardiac Workup: cardiac cath Nitro Today/Relief: no nitro taken today Aspirin Treatment Today: no aspirin today Allergies/Adverse Reactions: ciprofloxacin [From Cipro] Allergy (Severe, Verified 06/28/19 23:30) Difficulty Breathing ciprofloxacin HCl [From Cipro] Allergy (Severe, Verified 06/28/19 23:30) Difficulty Breathing etodolac [From Lodine] Allergy (Severe, Verified 06/28/19 23:30) Difficulty Breathing Home Medications: Allopurinol 300 mg [Zyloprim 300 mg] 300 mg PO DAILY 03/07/13 [History] Citalopram Hydrobromide 20 mg* [ceLEXa 20 MG] 10 mg PO DAILY 03/07/13 [ History] Sevelamer Carbonate [Renvela] 4 tab PO AC 03/07/13 [History] Calcium Acetate 2 cap PO TID 10/18/18 [History] Carvedilol 12.5 mg PO DAILY 10/18/18 [History] PANTOPRAZOLE 40 mg Tablet [Protonix 40MG Tablet] 40 mg PO QAM 04/15/19 [ History] Hx Tetanus, Diphtheria Vaccination/Date Given: Yes Hx Influenza Vaccination/Date Given: Yes Hx Pneumococcal Vaccination/Date Given: Yes Immunizations Up to Date: Yes - Review of Systems Constitutional: No Symptoms Eyes: No Symptoms Ears, Nose, & Throat: No Symptoms Respiratory: No Symptoms Cardiac: Chest Pain, No Palpitations, No Syncope Abdominal/Gastrointestinal: No Symptoms Genitourinary Symptoms: No Symptoms Musculoskeletal: No Symptoms Skin: No Symptoms Neurological: No Symptoms Psychological: No Symptoms Endocrine: No Symptoms Hematologic/Lymphatic: No Symptoms Immunological/Allergic: No Symptoms All Other Systems: Reviewed and Negative - Past Medical History Pertinent Past Medical History: Yes Neurological History: No Pertinent History ENT History: No Pertinent History Cardiac History: Hypertension Respiratory History: Asthma Endocrine Medical History: No Pertinent History Musculoskeletal History: No Pertinent History GI Medical History: GERD History: Dialysis, Renal Disease Psycho-Social History: No Pertinent History Male Reproductive Disorders: No Pertinent History Other Medical History: LEFT AV FISTULA - Past Surgical History Past Surgical History: Yes Neuro Surgical History: No Pertinent History Cardiac: No Pertinent History Respiratory: No Pertinent History Gastrointestinal: No Pertinent History Genitourinary: Other Musculoskeletal: No Pertinent History Male Surgical History: No Pertinent History Other Surgical History: bladder scope - renal biopsy - fistula and then graft - permacath - Social History Smoking Status: Current every day smoker How long have you smoked: 33yrs Exposure to second hand smoke: Yes Drug Use: none Patient Lives Alone: No - Nursing Vital Signs Nursing Vital Signs: Initial Vital Signs Temperature 97.5 F 06/28/19 23:12 Pulse Rate 88 06/28/19 23:12 Respiratory Rate 18 06/28/19 23:12 Blood Pressure 120/75 06/28/19 23:12 O2 Sat by Pulse Oximetry 99 06/28/19 23:12 Pain Scale Pain Intensity 0 - Physical Exam General Appearance: no apparent distress, alert, anxiety Eye Exam: PERRL/EOMI, eyes nml inspection Ears, Nose, Throat Exam: normal ENT inspection, dry mucous membranes Neck Exam: normal inspection, non-tender, supple, full range of motion Respiratory Exam: normal breath sounds, chest tenderness, lungs clear, airway intact, No respiratory distress Cardiovascular Exam: regular rate/rhythm, normal heart sounds, normal peripheral pulses Gastrointestinal/Abdomen Exam: soft, normal bowel sounds, No tenderness Rectal Exam: not done Back Exam: normal inspection, normal range of motion, CVA tenderness Extremity Exam: normal inspection, normal range of motion, pelvis stable Neurologic Exam: alert, oriented x 3, cooperative, public service representative II-XII nml as tested Skin Exam: normal color, warm, dry Lymphatic Exam: No adenopathy SpO2 Interpretation: normal SpO2: 99 O2 Delivery: Room Air - Course Nursing assessment & vital signs reviewed: Yes EKG Interpreted by Me: RATE (89), Sinus Rhythm, NORMAL AXIS, NORMAL INTERVALS, NORMAL QRS (no sig changes when compared to ekg dated 03/12/19.) Ordered Tests: Active Orders 24 hr Category Date Time Status Golf Technician STAT Care 06/28/19 23:46 Active EKG-ER Only STAT Care 06/28/19 23:45 Active EKG-ER Only STAT Care 06/29/19 02:02 Active IV Insertion STAT Care 06/28/19 23:45 Active Pulse Oximetry (ED) STAT Care 06/28/19 23:45 Active CHEST 1 VIEW (PORTABLE) Stat Exams 06/29/19 00:09 Taken CBC W DIFF Stat Lab 06/28/19 23:52 Completed CMP Stat Lab 06/28/19 23:52 Completed NT PRO BNP Stat Lab 06/28/19 23:52 Completed TROPONIN Q3H Lab 06/28/19 23:52 Completed TROPONIN Q3H Lab 06/29/19 02:57 Completed TROPONIN Q3H Lab 06/29/19 05:46 Ordered TROPONIN Q3H Lab 06/29/19 08:46 Ordered TROPONIN Q3H Lab 06/29/19 11:46 Ordered Medication Summary Generic Name Dose Route Start Last Admin Trade Name Freq PRN Reason Stop Dose Admin Sodium Chloride 1,000 mls @ 50 mls/hr 06/28/19 23:45 06/28/19 23:54 Sodium Chloride 0.9% 1000 Ml IV 07/28/19 23:44 50 mls/hr .Q20H CANDICE Administration Discontinued Medications Generic Name Dose Route Start Last Admin Trade Name Freq PRN Reason Stop Dose Admin Aspirin 324 mg 06/28/19 23:45 06/28/19 23:53 Baby Aspirin 81 Mg Chew PO 06/28/19 23:46 324 mg STAT ONE Administration Aspirin Confirm 06/28/19 23:50 Baby Aspirin 81 Mg Chew Administered 06/28/19 23:51 Dose 324 mg .ROUTE .STK-MED ONE Morphine Sulfate 4 mg 06/29/19 00:14 06/29/19 00:20 Morphine Sulfate 4 Mg Inj IV 06/29/19 00:15 4 mg STAT ONE Administration Morphine Sulfate Confirm 06/29/19 00:14 Morphine Sulfate 4 Mg Inj Administered 06/29/19 00:15 Dose 4 mg .ROUTE .STK-MED ONE Ondansetron HCl 4 mg 06/29/19 00:14 06/29/19 00:20 Zofran 4 Mg/2 Ml Vial IV 06/29/19 00:15 4 mg STAT ONE Administration Ondansetron HCl Confirm 06/29/19 00:13 Zofran 4 Mg/2 Ml Vial Administered 06/29/19 00:14 Dose 4 mg .ROUTE .STK-MED ONE Lab/Rad Data: Laboratory Result Diagrams 06/28/19 23:52 06/28/19 23:52 Laboratory Results 06/29/19 06/28/19 06/28/19 Range/Units 02:57 23:52 23:52 WBC (4.0-10.5) K/mm3 RBC (4.1-5.6) M/mm3 Hgb (12.5-18.0) gm/dl Hct (42-50) % MCV (78-100) fl MCH (26-32) pg MCHC (32-36) g/dl RDW (11.5-14.0) % Plt Count (150-450) K/mm3 MPV (6-9.5) fl Gran % (36.0-66.0) % Eos # (Auto) (0-0.5) Absolute Lymphs (auto) (1.0-4.6) Absolute Monos (auto) (0.0-1.3) Lymphocytes % (24.0-44.0) % Monocytes % (0.0-12.0) % Eosinophils % (0.00-5.0) % Basophils % (0.0-0.4) % Absolute Granulocytes (1.4-6.9) Basophils # (0-0.4) Sodium 137 (137-145) mmol/L Potassium 3.6 (3.5-5.1) mmol/L Chloride 92 L (98-107) mmol/L Carbon Dioxide 32 H (22-30) mmol/L Anion Gap 16.7 H (5-15) MEQ/L BUN 38 H (9-20) mg/dL Creatinine 8.96 H (0.66-1.25) mg/dL Estimated GFR 6.7 ML/MIN Glucose 128 H (74-106) mg/dL Calcium 8.1 L (8.4-10.2) mg/dL Total Bilirubin 0.80 (0.2-1.3) mg/dL AST 23 (17-59) U/L ALT 14 (0-50) U/L Alkaline Phosphatase 144 H (38-126) U/L Troponin I 0.114 H* 0.108 H* (0.000-0.034) ng/mL NT-Pro-B Natriuret Pep 78701 H (0-900) pg/mL Serum Total Protein 8.3 H (6.3-8.2) g/dL Albumin 4.7 (3.5-5.0) g/dL 06/28/19 Range/Units 23:52 WBC 7.1 (4.0-10.5) K/mm3 RBC 3.71 L (4.1-5.6) M/mm3 Hgb 12.2 L (12.5-18.0) gm/dl Hct 36.4 L (42-50) % MCV 98.1 (78-100) fl MCH 32.9 H (26-32) pg MCHC 33.5 (32-36) g/dl RDW 13.8 (11.5-14.0) % Plt Count 46 L (150-450) K/mm3 MPV 10.8 H (6-9.5) fl Gran % 69.9 H (36.0-66.0) % Eos # (Auto) 0.18 (0-0.5) Absolute Lymphs (auto) 1.11 (1.0-4.6) Absolute Monos (auto) 0.78 (0.0-1.3) Lymphocytes % 15.7 L (24.0-44.0) % Monocytes % 11.1 (0.0-12.0) % Eosinophils % 2.6 (0.00-5.0) % Basophils % 0.7 (0.0-0.4) % Absolute Granulocytes 4.93 (1.4-6.9) Basophils # 0.05 (0-0.4) Sodium (137-145) mmol/L Potassium (3.5-5.1) mmol/L Chloride (98-107) mmol/L Carbon Dioxide (22-30) mmol/L Anion Gap (5-15) MEQ/L BUN (9-20) mg/dL Creatinine (0.66-1.25) mg/dL Estimated GFR ML/MIN Glucose (74-106) mg/dL Calcium (8.4-10.2) mg/dL Total Bilirubin (0.2-1.3) mg/dL AST (17-59) U/L ALT (0-50) U/L Alkaline Phosphatase (38-126) U/L Troponin I (0.000-0.034) ng/mL NT-Pro-B Natriuret Pep (0-900) pg/mL Serum Total Protein (6.3-8.2) g/dL Albumin (3.5-5.0) g/dL - Progress Progress: improved, re-examined Air Movement: good Progress Note: 06/29/19 02:39 cxr-cardiomegaly. repeat 12 lead ekg at 0220 on 06/29/19 hr 83, nl axis, nsr, no changes when compared to ekg dated 06/28/19 06/29/19 04:28 i had a long d/w patient regarding his sx at this time. he has no cp. he states he feels really good. i spoke with healthcare social worker dr. jimenez. he recommends pt be admitted here or transferred to [facility] for inpt observation there for 24 hours. in addition, pt is to have a stress test. pt refuses both options. he wants to go home. i reviewed risks of worsening sx and if he leaves ama. pt states he understands risks and the benefits of his options. he declines and will sign ama form. we will provide pt cardiology clinic information to pt. Blood Culture(s) Obtained: No Antibiotics given: No Counseled pt/family regarding: lab results, diagnosis, need for follow-up, rad results - Departure Departure Disposition: Home Clinical Impression: Chest pain, Chronic renal failure, Elevated troponin Condition: Fair Critical Care Time: Yes Critical Care Time(excluding separately billable procedures): Critical 30-74 mins Referrals: MIKAEL MIGUEL [Primary Care Provider] - KYLIE JIMENEZ [ACTIVE STAFF] - Additional Instructions: take medications as prescribed. continue your hemodialysis. follow up with healthcare social worker on Jun. call for appointment. return to ED if symptoms worsen.
[2019-06-28] MEDS ORDERED: BABY ASPIRIN 81 MG CHEW ONE (23:50)
[2019-06-28] MEDS ORDERED: Sodium Chloride 0.9% 1000 ML 1,000 ML ONE (23:50)
[2019-06-28] MEDS: BABY ASPIRIN 81 MG CHEW PO ONE (23:53)
[2019-06-28] MEDS: Sodium Chloride 0.9% 1000 ML 1,000 ML IV SCH (23:54)
[2019-06-28 23:55] LABS: Absolute Neutrophil Ct (ANC) 4.93 (1.4-6.9); BASOPHIL % 0.7 % (0.0-0.4); Basophil (Absolute #) 0.05 (0-0.4); Eosinophil % 2.6 % (0.00-5.0); Eosinophil (Absolute #) 0.18 (0-0.5); Hematocrit 36.4 % (42-50); Hemoglobin 12.2 gm/dl (12.5-18.0); Lymphocyte (Absolute #) 1.11 (1.0-4.6); Lymphocytes % 15.7 % (24.0-44.0); Mean Cell Volume 98.1 fl (78-100); Mean Corpuscular Hemoglobin 32.9 pg (26-32); Mean Corpuscular Hgb Concent. 33.5 g/dl (32-36); Mean Platelet Volume 10.8 fl (6-9.5); Monocyte (Absolute #) 0.78 (0.0-1.3); Monocytes % 11.1 % (0.0-12.0); Neutrophil % 69.9 % (36.0-66.0); Platelet Count 46 K/mm3 (150-450); Red Blood Count 3.71 M/mm3 (4.1-5.6); Red Cell Distribution Width 13.8 % (11.5-14.0); White Blood Count 7.1 K/mm3 (4.0-10.5)
[2019-06-29] MEDS ORDERED: Zofran 4 MG/2 ML VIAL ONE (00:13)
[2019-06-29] MEDS ORDERED: MORPHINE SULFATE 4 MG INJ ONE (00:14)
[2019-06-29 00:18] LABS: ALBUMIN 4.7 g/dL (3.5-5.0); ANION GAP 16.7 MEQ/L (5-15); BILIRUBIN,TOTAL 0.8 mg/dL (0.2-1.3); Calcium 8.1 mg/dL (8.4-10.2); Creatinine 1 8.96 mg/dL (0.66-1.25); Potassium 3.6 mmol/L (3.5-5.1); Total Protein 8.3 g/dL (6.3-8.2)
[2019-06-29] MEDS: MORPHINE SULFATE 4 MG INJ IV ONE (00:20)
[2019-06-29] MEDS: Zofran 4 MG/2 ML VIAL IV ONE (00:20)
[2019-06-29 04:33] VITALS: O2SAT 99
[2019-06-29 04:34] VITALS: BP 155/89; PULSE 74
--- NOTE | 2019-06-29 07:44 | XRAY ---
Indication: Chest pain. Comparison: March 12, 2019. Portable apical lordotic chest slightly underinflated with stable calcified granulomas. No focal infiltrate, consolidation, or large effusion. Heart is not enlarged. Bony thorax again demonstrates minimal degenerative changes and old right rib fractures. Impression: Nonacute underinflated chest with chronic features.
== END 2019-06-29 04:44 | disposition home or self-care (01) ==
LOC: ED 23:11
DX: R07.9 Chest pain, unspecified (principal); N18.9 Chronic kidney disease, unspecified; R74.8 Abnormal levels of other serum enzymes; F41.9 Anxiety disorder, unspecified; K21.9 Gastro-esophageal reflux disease without esophagitis; Z79.899 Other long term (current) drug therapy; R42 Dizziness and giddiness
CPT/HCPCS: 36000; 36415; 71045; 80053; 83880; 84484; 85025; 93005; 93041; 94760; 96374; 96375; 99284; 99291; J2270; J2405; A9270-GY

== ENCOUNTER 2019-07-03 14:04 | Emergency (ER) | payer OTHER ==
[2019-07-03 14:25] VITALS: O2SAT 100
--- NOTE | 2019-07-03 14:28 | ERPHSYRPT ---
- History of Present Illness Time Seen by Provider: 07/03/19 14:26 Source: patient Exam Limitations: no limitations Patient Subjective Stated Complaint: pt reports abdominal bruising. reports he does hemodialysis and administers heparin with each treatment. states that they would like to know what his platelet count and hemoglobin is before administering the heparin with his dialysis today. pt also reprots nausea and dry heaves starting this morning. Triage Nursing Assessment: pt is aox3, pupils perrl, resp easy non labored, radial pulses strong and equal, cap refill < 3 seconds, graft noted to the left arm, abd soft, non tender, diffuse bruising noted to the abdomen and right upper arm, pt skin sallow, intact, dry. Physician History: pt reports abdominal bruising. reports he does hemodialysis and administers heparin with each treatment. states that they would like to know what his platelet count and hemoglobin is before administering the heparin with his dialysis today. pt also reprots nausea and dry heaves starting this morning. Allergies/Adverse Reactions: ciprofloxacin [From Cipro] Allergy (Severe, Verified 07/03/19 14:25) Difficulty Breathing ciprofloxacin HCl [From Cipro] Allergy (Severe, Verified 07/03/19 14:25) Difficulty Breathing etodolac [From Lodine] Allergy (Severe, Verified 07/03/19 14:25) Difficulty Breathing Home Medications: Allopurinol 300 mg [Zyloprim 300 mg] 300 mg PO DAILY 03/07/13 [History] Citalopram Hydrobromide 20 mg* [ceLEXa 20 MG] 10 mg PO DAILY 03/07/13 [ History] Sevelamer Carbonate [Renvela] 4 tab PO AC 03/07/13 [History] Calcium Acetate 2 cap PO TID 10/18/18 [History] PANTOPRAZOLE 40 mg Tablet [Protonix 40MG Tablet] 40 mg PO QAM 10/18/18 [ History] Hx Tetanus, Diphtheria Vaccination/Date Given: Yes Hx Influenza Vaccination/Date Given: Yes Hx Pneumococcal Vaccination/Date Given: Yes Immunizations Up to Date: No - Review of Systems Constitutional: No Fever, No Chills Eyes: No Symptoms Ears, Nose, & Throat: No Symptoms Respiratory: No Cough, No Dyspnea Cardiac: No Chest Pain, No Edema, No Syncope Abdominal/Gastrointestinal: Nausea, Vomiting, No Abdominal Pain, No Diarrhea Genitourinary Symptoms: No Dysuria Musculoskeletal: No Back Pain, No Neck Pain Skin: No Rash Neurological: No Dizziness, No Focal Weakness, No Sensory Changes Psychological: No Symptoms Endocrine: No Symptoms Hematologic/Lymphatic: Easy Bruising All Other Systems: Reviewed and Negative - Past Medical History Pertinent Past Medical History: Yes Neurological History: No Pertinent History ENT History: No Pertinent History Cardiac History: Hypertension Respiratory History: Asthma Endocrine Medical History: No Pertinent History Musculoskeletal History: No Pertinent History GI Medical History: GERD History: Dialysis, Renal Disease Psycho-Social History: No Pertinent History Male Reproductive Disorders: No Pertinent History Other Medical History: LEFT AV FISTULA - Past Surgical History Past Surgical History: Yes Neuro Surgical History: No Pertinent History Cardiac: No Pertinent History Respiratory: No Pertinent History Gastrointestinal: No Pertinent History Genitourinary: Other Musculoskeletal: No Pertinent History Male Surgical History: No Pertinent History Other Surgical History: bladder scope - renal biopsy - fistula and then graft - permacath - Social History Smoking Status: Current every day smoker How long have you smoked: 33yrs Exposure to second hand smoke: Yes Drug Use: none Patient Lives Alone: No - Nursing Vital Signs Nursing Vital Signs: Initial Vital Signs Temperature 99.4 F 07/03/19 14:09 Pulse Rate 65 07/03/19 14:09 Respiratory Rate 20 07/03/19 14:09 Blood Pressure 178/95 07/03/19 14:09 O2 Sat by Pulse Oximetry 100 07/03/19 14:09 Pain Scale Pain Intensity 0 - Physical Exam General Appearance: no apparent distress, alert Eye Exam: PERRL/EOMI, eyes nml inspection Ears, Nose, Throat Exam: normal ENT inspection, TMs normal, pharynx normal, moist mucous membranes Neck Exam: normal inspection, non-tender, supple, full range of motion Respiratory Exam: normal breath sounds, lungs clear, No respiratory distress Cardiovascular Exam: regular rate/rhythm, normal heart sounds, normal peripheral pulses Gastrointestinal/Abdomen Exam: soft, normal bowel sounds, No tenderness, No mass Back Exam: normal inspection, normal range of motion, No CVA tenderness, No vertebral tenderness Extremity Exam: normal inspection, normal range of motion, pelvis stable Neurologic Exam: alert, oriented x 3, cooperative, normal mood/affect, nml cerebellar function, nml station & gait, sensation nml, No motor deficits Skin Exam: normal color, warm, dry, No rash Lymphatic Exam: No adenopathy SpO2: 100 - Course Nursing assessment & vital signs reviewed: Yes Ordered Tests: Active Orders 24 hr Category Date Time Status CBC W DIFF Stat Lab 07/03/19 14:35 Completed CMP Stat Lab 07/03/19 14:35 Completed PROTIME WITH INR Stat Lab 07/03/19 14:35 Completed PTT Stat Lab 07/03/19 14:35 Completed Lab/Rad Data: Laboratory Result Diagrams 07/03/19 14:35 07/03/19 14:35 Laboratory Results 07/03/19 07/03/19 07/03/19 Range/Units 14:35 14:35 14:35 WBC 5.1 (4.0-10.5) K/mm3 RBC 3.42 L (4.1-5.6) M/mm3 Hgb 11.3 L (12.5-18.0) gm/dl Hct 33.6 L (42-50) % MCV 98.2 (78-100) fl MCH 33.0 H (26-32) pg MCHC 33.6 (32-36) g/dl RDW 13.8 (11.5-14.0) % Plt Count 90 L (150-450) K/mm3 MPV 10.4 H (6-9.5) fl Gran % 69.1 H (36.0-66.0) % Eos # (Auto) 0.16 (0-0.5) Absolute Lymphs (auto) 0.92 L (1.0-4.6) Absolute Monos (auto) 0.43 (0.0-1.3) Lymphocytes % 18.2 L (24.0-44.0) % Monocytes % 8.5 (0.0-12.0) % Eosinophils % 3.2 (0.00-5.0) % Basophils % 1.0 (0.0-0.4) % Absolute Granulocytes 3.50 (1.4-6.9) Basophils # 0.05 (0-0.4) PT 12.4 (8.83-12.87) SECONDS INR 1.10 (0.8-3.0) APTT 32.5 (24.1-36.1) SECONDS Sodium 136 L (137-145) mmol/L Potassium 6.9 H* (3.5-5.1) mmol/L Chloride 93 L (98-107) mmol/L Carbon Dioxide 29 (22-30) mmol/L Anion Gap 20.3 H (5-15) MEQ/L BUN 87 H (9-20) mg/dL Creatinine 14.95 H (0.66-1.25) mg/dL Estimated GFR 3.7 ML/MIN Glucose 96 (74-106) mg/dL Calcium 7.0 L (8.4-10.2) mg/dL Total Bilirubin 0.80 (0.2-1.3) mg/dL AST 22 (17-59) U/L ALT 15 (0-50) U/L Alkaline Phosphatase 125 (38-126) U/L Serum Total Protein 7.6 (6.3-8.2) g/dL Albumin 4.4 (3.5-5.0) g/dL - Progress Progress: unchanged Counseled pt/family regarding: lab results, diagnosis, need for follow-up - Departure Departure Disposition: Home Clinical Impression: Abdominal pain, acute, epigastric, Multiple bruises Acute on chronic renal failure Qualifiers: Acute renal failure type: unspecified Chronic kidney disease stage: on chronic dialysis Qualified Code(s): N17.9 - Acute kidney failure, unspecified Condition: Stable Critical Care Time: No Referrals: MIKAEL MIGUEL [Primary Care Provider] -
[2019-07-03 14:41] LABS: Basophil (Absolute #) 0.05 (0-0.4); Eosinophil % 3.2 % (0.00-5.0); Eosinophil (Absolute #) 0.16 (0-0.5); Hematocrit 33.6 % (42-50); Hemoglobin 11.3 gm/dl (12.5-18.0); Lymphocyte (Absolute #) 0.92 (1.0-4.6); Lymphocytes % 18.2 % (24.0-44.0); Mean Cell Volume 98.2 fl (78-100); Mean Corpuscular Hgb Concent. 33.6 g/dl (32-36); Mean Platelet Volume 10.4 fl (6-9.5); Monocyte (Absolute #) 0.43 (0.0-1.3); Monocytes % 8.5 % (0.0-12.0); Neutrophil % 69.1 % (36.0-66.0); Platelet Count 90 K/mm3 (150-450); Red Blood Count 3.42 M/mm3 (4.1-5.6); Red Cell Distribution Width 13.8 % (11.5-14.0); White Blood Count 5.1 K/mm3 (4.0-10.5)
[2019-07-03 14:48] LABS: INR 1.1 (0.8-3.0); PROTIME 12.4 SECONDS (8.83-12.87)
[2019-07-03 14:51] LABS: PTT 32.5 SECONDS (24.1-36.1)
[2019-07-03 14:53] LABS: ALBUMIN 4.4 g/dL (3.5-5.0); ANION GAP 20.3 MEQ/L (5-15); BILIRUBIN,TOTAL 0.8 mg/dL (0.2-1.3); Total Protein 7.6 g/dL (6.3-8.2)
[2019-07-03 15:02] LABS: Creatinine 1 14.95 mg/dL (0.66-1.25)
[2019-07-03 15:03] LABS: Potassium 6.9 mmol/L (3.5-5.1)
[2019-07-03 15:04] VITALS: BP 183/108; PULSE 63
[2019-07-03 15:35] LABS: Slide Review 1 YES
== END 2019-07-03 15:10 | disposition home or self-care (01) ==
LOC: ED 14:04
DX: R10.9 Unspecified abdominal pain (principal); R10.13 Epigastric pain; T14.8XXA Other injury of unspecified body region, initial encounter; N17.9 Acute kidney failure, unspecified; N18.6 End stage renal disease; Z99.2 Dependence on renal dialysis
CPT/HCPCS: 36415; 80053; 85025; 85610; 85730; 99283

== ENCOUNTER 2019-09-13 12:31 | Emergency (ER) | payer OTHER ==
--- NOTE | 2019-09-13 12:35 | ERPHSYRPT ---
- History of Present Illness Time Seen by Provider: 09/13/19 12:35 Source: patient, family Exam Limitations: no limitations Physician History: This is a 49-year-old white male with history of renal failure on dialysis and presents with less than 24-hour history of itching and rash on his right upper arm shoulder both anteriorly and posteriorly. Patient did take 1 Benadryl last night which helped the itchiness but then today he noticed that the itching has returned as well as welts and rash. Patient is not short of breath. Patient denies any new exposures. There is been no changes to his medication. Timing/Duration: yesterday Quality: itchy Severity: mild Location: extremities (Right upper extremity and upper back on the right side) Possible Causes: no cause identified Modifying Factors: Improves With: antihistamine, scratching Associated Symptoms: denies symptoms Allergies/Adverse Reactions: ciprofloxacin [From Cipro] Allergy (Severe, Verified 09/13/19 12:47) Difficulty Breathing ciprofloxacin HCl [From Cipro] Allergy (Severe, Verified 09/13/19 12:47) Difficulty Breathing etodolac [From Lodine] Allergy (Severe, Verified 09/13/19 12:47) Difficulty Breathing Home Medications: Allopurinol 300 mg [Zyloprim 300 mg] 300 mg PO DAILY 03/07/13 [History] Citalopram Hydrobromide 20 mg* [ceLEXa 20 MG] 10 mg PO DAILY 03/07/13 [ History] Sevelamer Carbonate [Renvela] 2 tab PO AC 03/07/13 [History] Calcium Acetate 4 cap PO TIDWM 10/18/18 [History] PANTOPRAZOLE 40 mg Tablet [Protonix 40MG Tablet] 40 mg PO QAM 10/18/18 [ History] Hydrocodone/Acetaminophen [[place] 7.5-325 Tablet] 1 tab PO QID 09/13/19 [History] calcitrioL [Calcitriol] 0.25 mg PO DAILY 09/13/19 [History] carvediloL [Carvedilol] 25 mg PO BID 09/13/19 [History] minoxidiL [Minoxidil] 2.5 mg PO BID 09/13/19 [History] Hx Tetanus, Diphtheria Vaccination/Date Given: Yes Hx Influenza Vaccination/Date Given: Yes Hx Pneumococcal Vaccination/Date Given: Yes - Review of Systems Constitutional: No Symptoms Eyes: No Symptoms Ears, Nose, & Throat: No Symptoms Respiratory: No Symptoms Cardiac: No Symptoms Abdominal/Gastrointestinal: No Symptoms Genitourinary Symptoms: No Symptoms Musculoskeletal: No Symptoms Skin: Rash Neurological: No Symptoms Psychological: No Symptoms Endocrine: No Symptoms Hematologic/Lymphatic: No Symptoms Immunological/Allergic: No Symptoms All Other Systems: Reviewed and Negative - Past Medical History Pertinent Past Medical History: Yes Neurological History: No Pertinent History ENT History: No Pertinent History Cardiac History: Hypertension Respiratory History: Asthma Endocrine Medical History: No Pertinent History Musculoskeletal History: No Pertinent History GI Medical History: GERD History: Dialysis, Renal Disease Psycho-Social History: No Pertinent History Male Reproductive Disorders: No Pertinent History Other Medical History: LEFT AV FISTULA - Past Surgical History Past Surgical History: Yes Neuro Surgical History: No Pertinent History Cardiac: No Pertinent History Respiratory: No Pertinent History Gastrointestinal: No Pertinent History Genitourinary: Other Musculoskeletal: No Pertinent History Male Surgical History: No Pertinent History Other Surgical History: bladder scope - renal biopsy - fistula and then graft - permacath - Social History Smoking Status: Current every day smoker How long have you smoked: 33yrs Exposure to second hand smoke: Yes Drug Use: none Patient Lives Alone: No - Nursing Vital Signs Nursing Vital Signs: Initial Vital Signs Temperature 98.1 F 09/13/19 12:37 Pulse Rate 72 09/13/19 12:37 Blood Pressure 103/58 09/13/19 12:37 O2 Sat by Pulse Oximetry 96 09/13/19 12:37 Pain Scale Pain Intensity 0 - Physical Exam General Appearance: no apparent distress, alert, anxiety Eye Exam: PERRL/EOMI, eyes nml inspection Ears, Nose, Throat Exam: normal ENT inspection, moist mucous membranes Neck Exam: normal inspection, non-tender, supple, full range of motion Respiratory Exam: normal breath sounds, lungs clear, airway intact, No chest tenderness, No respiratory distress Gastrointestinal/Abdomen Exam: No tenderness Rectal Exam: not done Back Exam: normal inspection, normal range of motion, CVA tenderness Extremity Exam: normal range of motion, pelvis stable, other (Right upper arm welts slightly raised and pink. Similar rash posteriorly and onto the upper back on the right side) Neurologic Exam: alert, oriented x 3, cooperative, gun striper II-XII nml as tested Skin Exam: dry, rash (Welts) Lymphatic Exam: No adenopathy SpO2 Interpretation: normal O2 Delivery: Room Air - Course Nursing assessment & vital signs reviewed: Yes Ordered Tests: Medication Summary Discontinued Medications Generic Name Dose Route Start Last Admin Trade Name Dayna PRN Reason Stop Dose Admin Diphenhydramine HCl 50 mg 09/13/19 13:06 Benadryl 25 Mg Capsule PO 09/13/19 13:07 STAT ONE Famotidine 40 mg 09/13/19 13:11 Pepcid 20 Mg PO 09/13/19 13:12 STAT ONE Methylprednisolone Sodium Succinate 125 mg 09/13/19 13:06 Solu-Medrol 125 Mg IM 09/13/19 13:07 STAT ONE - Progress Progress: improved Counseled pt/family regarding: diagnosis, need for follow-up, rad results - Departure Departure Disposition: Home Clinical Impression: Hives Condition: Stable Critical Care Time: No Referrals: MIKAEL MIGUEL [Primary Care Provider] - Additional Instructions: Keep her skin moisturized with lotion. Continue Benadryl 25 mg orally 3 times a day for 4 days. Follow-up with your primary care provider for persistent symptoms. Prescriptions: Famotidine 20 mg [Pepcid 20 MG] 20 mg PO DAILY #10 tablet Prednisone 10 mg [Deltasone 10 mg] 10 mg PO TID #12 tablet
[2019-09-13 12:47] VITALS: BP 103/58; PULSE 72; O2SAT 96
[2019-09-13] MEDS ORDERED: BENADRYL 25 MG CAPSULE PO ONE (13:06)
[2019-09-13] MEDS ORDERED: solu-MEDROL 125 MG IM ONE (13:06)
[2019-09-13] MEDS ORDERED: Pepcid 20 MG PO ONE (13:11)
[2019-09-13] MEDS ORDERED: Pepcid 20 MG ONE (13:31)
[2019-09-13] MEDS ORDERED: BENADRYL 25 MG CAPSULE ONE (13:31)
[2019-09-13] MEDS ORDERED: solu-MEDROL 125 MG ONE (13:32)
== END 2019-09-13 14:15 | disposition home or self-care (01) ==
LOC: ED 12:31
DX: L50.9 Urticaria, unspecified (principal)
CPT/HCPCS: 96372; 99283; J2930; A9270-GY

== ENCOUNTER 2019-11-19 12:50 | Emergency (ER) | payer OTHER ==
--- NOTE | 2019-11-19 13:05 | ERPHSYRPT ---
- History of Present Illness Time Seen by Provider: 11/19/19 12:54 Source: patient Exam Limitations: no limitations Physician History: Location: gluteal cleft Quality: draining abscess Radiation: none Severity: mild Duration: 2-3 days Timing: gradual Modifying factors/associated signs and symptoms: The abscess has spontaneously drained today. He complains of no issues pooping. No history of fistulas. Timing/Duration: day(s) Allergies/Adverse Reactions: ciprofloxacin [From Cipro] Allergy (Severe, Verified 11/19/19 13:09) Difficulty Breathing ciprofloxacin HCl [From Cipro] Allergy (Severe, Verified 11/19/19 13:09) Difficulty Breathing etodolac [From Lodine] Allergy (Severe, Verified 11/19/19 13:09) Difficulty Breathing Home Medications: Allopurinol 300 mg [Zyloprim 300 mg] 300 mg PO DAILY 03/07/13 [History] Citalopram Hydrobromide 20 mg* [ceLEXa 20 MG] 10 mg PO DAILY 03/07/13 [ History] Sevelamer Carbonate [Renvela] 2 tab PO AC 03/07/13 [History] Calcium Acetate 4 cap PO TIDWM 10/18/18 [History] PANTOPRAZOLE 40 mg Tablet [Protonix 40MG Tablet] 40 mg PO QAM 10/18/18 [ History] Hydrocodone/Acetaminophen [[place] 7.5-325 Tablet] 1 tab PO QID 09/13/19 [History] calcitrioL [Calcitriol] 0.25 mg PO DAILY 09/13/19 [History] carvediloL [Carvedilol] 25 mg PO BID 09/13/19 [History] minoxidiL [Minoxidil] 2.5 mg PO BID 09/13/19 [History] Hx Tetanus, Diphtheria Vaccination/Date Given: Yes Hx Influenza Vaccination/Date Given: Yes Hx Pneumococcal Vaccination/Date Given: Yes Travel Risk - International Travel Have you traveled outside of the country in past 3 weeks: No Have you or anyone close to you been diagnosed with or: No Do your reside in a community with a known COVID-19 case?: Yes If Yes where:: [place] - Review of Systems Constitutional: No Fever, No Chills Eyes: No Symptoms Ears, Nose, & Throat: No Symptoms Respiratory: No Cough, No Dyspnea Cardiac: No Chest Pain, No Edema, No Syncope Abdominal/Gastrointestinal: No Abdominal Pain, No Nausea, No Vomiting, No Diarrhea Genitourinary Symptoms: No Dysuria Musculoskeletal: No Back Pain, No Neck Pain Skin: Other (Gluteal cleft abscess), No Rash Neurological: No Dizziness, No Focal Weakness, No Sensory Changes Psychological: No Symptoms Endocrine: No Symptoms All Other Systems: Reviewed and Negative - Past Medical History Pertinent Past Medical History: Yes Neurological History: No Pertinent History ENT History: No Pertinent History Cardiac History: Hypertension Respiratory History: Asthma Endocrine Medical History: No Pertinent History Musculoskeletal History: No Pertinent History GI Medical History: GERD History: Dialysis, Renal Disease Psycho-Social History: No Pertinent History Male Reproductive Disorders: No Pertinent History Other Medical History: LEFT AV FISTULA - Past Surgical History Past Surgical History: Yes Neuro Surgical History: No Pertinent History Cardiac: No Pertinent History Respiratory: No Pertinent History Gastrointestinal: No Pertinent History Genitourinary: Other Musculoskeletal: No Pertinent History Male Surgical History: No Pertinent History Other Surgical History: bladder scope - renal biopsy - fistula and then graft - permacath - Social History Smoking Status: Current every day smoker How long have you smoked: 33yrs Exposure to second hand smoke: Yes Drug Use: none Patient Lives Alone: No - Nursing Vital Signs Nursing Vital Signs: Initial Vital Signs Temperature 99.1 F 11/19/19 12:55 Pulse Rate 82 11/19/19 12:55 Respiratory Rate 16 11/19/19 12:55 Blood Pressure 121/77 11/19/19 12:55 O2 Sat by Pulse Oximetry 97 11/19/19 12:55 Pain Scale Pain Intensity 6 - Physical Exam General Appearance: no apparent distress, alert Eye Exam: PERRL/EOMI, eyes nml inspection Ears, Nose, Throat Exam: normal ENT inspection, TMs normal, pharynx normal, moist mucous membranes Neck Exam: normal inspection, non-tender, supple, full range of motion Respiratory Exam: normal breath sounds, lungs clear, No respiratory distress Cardiovascular Exam: regular rate/rhythm, normal heart sounds, normal peripheral pulses Gastrointestinal/Abdomen Exam: soft, normal bowel sounds, No tenderness, No mass Back Exam: normal inspection, normal range of motion, No CVA tenderness, No vertebral tenderness Extremity Exam: normal inspection, normal range of motion, pelvis stable Neurologic Exam: alert, oriented x 3, cooperative, normal mood/affect, nml cerebellar function, nml station & gait, sensation nml, No motor deficits Skin Exam: normal color, warm, dry, No rash Lymphatic Exam: No adenopathy SpO2 Interpretation: normal Comments: 11/19/19 13:11 On rectal inspection, patient has no rectal abscess. He has no obvious rectal involvement. He does have a right gluteal cleft abscess. There is some minor drainage from this. However, it appears fully drained already. There is some very mild surrounding erythema without tenderness or further fluctuance. - Progress Progress: improved Progress Note: 11/19/19 13:12 The abscess at this point time demonstrates no rectal involvement, no systemic signs of illness. Appears fully drained. We will treat with oral antibiotics, doxycycline. He will need a wound recheck in 48 to 72 hours with his PCP. He will return here sooner should anything change. Counseled pt/family regarding: diagnosis, need for follow-up - Departure Departure Disposition: Home Clinical Impression: Abscess, gluteal cleft Condition: Stable Critical Care Time: No Referrals: MIKAEL MIGUEL [Primary Care Provider] - Instructions: Wound Infection
[2019-11-19 13:09] VITALS: BP 121/77; PULSE 82; O2SAT 97
== END 2019-11-19 13:14 | disposition home or self-care (01) ==
LOC: ED 12:50
DX: L02.31 Cutaneous abscess of buttock (principal); Z79.899 Other long term (current) drug therapy; I10 Essential (primary) hypertension; J45.909 Unspecified asthma, uncomplicated; K21.9 Gastro-esophageal reflux disease without esophagitis; N28.9 Disorder of kidney and ureter, unspecified
CPT/HCPCS: 99283

== ENCOUNTER 2020-10-14 12:41 | Emergency (ER) | payer OTHER ==
--- NOTE | 2020-10-14 13:23 | ERPHSYRPT ---
- History of Present Illness Time Seen by Provider: 10/14/20 13:21 Historian: patient, family Exam Limitations: no limitations Patient Subjective Stated Complaint: Abdominal pain Triage Nursing Assessment: Patient ambulated back to ED and transferred self to bed. Patient A+O x 3. Patient's skin pink, warm and dry. Patient complains of intermittent abdominal cramping that started 02/12. Patient states he is having N/V. Patient states he has the urge to urinate but has not urinated in 7 years due to dialysis. Abdomen soft and round with BS X 4. Physician History: Patient complains of intermittent abdominal cramping that started 02/12. Patient states he is having N/V. Patient states he has the urge to urinate but has not urinated in 7 years due to dialysis. Timing/Duration: day(s) (3 days ago) Activities at Onset: none Quality: other (bladder spasm) Abdominal Pain Onset Location: suprapubic Pain Radiation: no radiation Severity of Pain-Max: moderate Severity of Pain-Current: moderate Modifying Factors: Improves With: nothing Associated Symptoms: denies symptoms Previous symptoms: no prior history Allergies/Adverse Reactions: ciprofloxacin [From Cipro] Allergy (Severe, Verified 10/14/20 12:46) Difficulty Breathing ciprofloxacin HCl [From Cipro] Allergy (Severe, Verified 10/14/20 12:46) Difficulty Breathing etodolac [From Lodine] Allergy (Severe, Verified 10/14/20 12:46) Difficulty Breathing polystyrene sulfonate [From Kayexalate] Allergy (Verified 10/14/20 12:46) Home Medications: Allopurinol 300 mg [Zyloprim 300 mg] 300 mg PO DAILY 03/07/13 [History] Citalopram Hydrobromide 20 mg* [ceLEXa 20 MG] 10 mg PO DAILY 03/07/13 [History] Sevelamer Carbonate [Renvela] 2 tab PO AC 03/07/13 [History] Calcium Acetate 4 cap PO TIDWM 10/18/18 [History] PANTOPRAZOLE 40 mg Tablet [Protonix 40MG Tablet] 40 mg PO QAM 10/18/18 [History] carvediloL [Carvedilol] 12.5 mg PO BID 09/13/19 [History] Hx Tetanus, Diphtheria Vaccination/Date Given: Yes Hx Influenza Vaccination/Date Given: Yes Hx Pneumococcal Vaccination/Date Given: Yes Immunizations Up to Date: Yes Travel Risk - International Travel Have you traveled outside of the country in past 3 weeks: No - Coronavirus Screening Are you exhibiting any of the following symptoms?: No Close contact with a COVID-19 positive Pt in past 14-21 Days: No - Vaccine Status Have you recieved a Covid-19 vaccination: No - Review of Systems Constitutional: No Fever, No Chills Eyes: No Symptoms Ears, Nose, & Throat: No Symptoms Respiratory: No Cough, No Dyspnea Cardiac: No Chest Pain, No Edema, No Syncope Abdominal/Gastrointestinal: Abdominal Pain, No Nausea, No Vomiting, No Diarrhea Genitourinary Symptoms: Penile Discharge (? clear discharge, not sure of color), Other (bladder spasm), No Dysuria Musculoskeletal: No Back Pain, No Neck Pain Skin: No Rash Neurological: No Dizziness, No Focal Weakness, No Sensory Changes Psychological: No Symptoms Endocrine: No Symptoms All Other Systems: Reviewed and Negative - Past Medical History Pertinent Past Medical History: Yes Neurological History: No Pertinent History ENT History: No Pertinent History Cardiac History: Hypertension Respiratory History: Asthma Endocrine Medical History: No Pertinent History Musculoskeletal History: No Pertinent History GI Medical History: GERD History: Dialysis, Renal Disease Psycho-Social History: No Pertinent History Male Reproductive Disorders: No Pertinent History Other Medical History: LEFT AV FISTULA - Past Surgical History Past Surgical History: Yes Neuro Surgical History: No Pertinent History Cardiac: No Pertinent History Respiratory: No Pertinent History Gastrointestinal: No Pertinent History Genitourinary: Other Musculoskeletal: No Pertinent History Male Surgical History: No Pertinent History Other Surgical History: bladder scope - renal biopsy - fistula and then graft - permacath - Social History Smoking Status: Current every day smoker How long have you smoked: 33yrs Exposure to second hand smoke: Yes Drug Use: none Patient Lives Alone: No - Nursing Vital Signs Nursing Vital Signs: Initial Vital Signs Pulse Rate 76 10/14/20 12:47 Respiratory Rate 18 10/14/20 12:47 Blood Pressure 164/90 10/14/20 12:47 O2 Sat by Pulse Oximetry 94 L 10/14/20 12:47 Pain Scale Pain Intensity 9 - Physical Exam General Appearance: no apparent distress, alert Eye Exam: PERRL/EOMI, eyes nml inspection Ears, Nose, Throat Exam: normal ENT inspection, pharynx normal, moist mucous membranes Neck Exam: normal inspection, non-tender, supple, full range of motion Respiratory Exam: normal breath sounds, lungs clear, No respiratory distress Cardiovascular Exam: regular rate/rhythm, normal heart sounds Gastrointestinal/Abdomen Exam: soft, No tenderness, No mass Back Exam: normal inspection, normal range of motion, No CVA tenderness, No vertebral tenderness Extremity Exam: normal inspection, normal range of motion, pelvis stable Neurologic Exam: alert, oriented x 3, cooperative, normal mood/affect, nml cerebellar function, sensation nml, No motor deficits Skin Exam: normal color, warm, dry SpO2: 94 - Course Nursing assessment & vital signs reviewed: Yes Ordered Tests: Active Orders 24 hr Category Date Time Status CBC W DIFF Stat Lab 10/14/20 13:15 Completed CMP Stat Lab 10/14/20 13:15 Completed Medication Summary Generic Name Dose Route Start Last Admin Trade Name Freq PRN Reason Stop Dose Admin Oxybutynin Chloride 10 mg 10/15/20 10:00 Ditropan Xl 5 Mg PO 11/14/20 09:59 DAILY CANDICE Lab/Rad Data: Laboratory Result Diagrams 10/14/20 13:15 10/14/20 13:15 Laboratory Results 10/14/20 10/14/20 Range/Units 13:15 13:15 WBC 9.5 (4.0-10.5) K/mm3 RBC 3.01 L (4.1-5.6) M/mm3 Hgb 10.0 L (12.5-18.0) gm/dl Hct 30.8 L (42-50) % MCV 102.3 H (78-100) fl MCH 33.2 H (26-32) pg MCHC 32.5 (32-36) g/dl RDW 12.9 (11.5-14.0) % Plt Count 100 L (150-450) K/mm3 MPV 10.0 (7.5-11.0) fl Gran % 87.6 H (36.0-66.0) % Eos # (Auto) 0.08 (0-0.5) Absolute Lymphs (auto) 0.57 L (1.0-4.6) Absolute Monos (auto) 0.49 (0.0-1.3) Lymphocytes % 6.0 L (24.0-44.0) % Monocytes % 5.1 (0.0-12.0) % Eosinophils % 0.8 (0.00-5.0) % Basophils % 0.5 (0.0-0.4) % Absolute Granulocytes 8.34 H (1.4-6.9) Basophils # 0.05 (0-0.4) Sodium 134 L (137-145) mmol/L Potassium 4.6 (3.5-5.1) mmol/L Chloride 88 L (98-107) mmol/L Carbon Dioxide 33 H (22-30) mmol/L Anion Gap 17.8 H (5-15) MEQ/L BUN 54 H (9-20) mg/dL Creatinine 12.51 H (0.66-1.25) mg/dL Estimated GFR 4.5 ML/MIN Glucose 112 H (74-106) mg/dL Calcium 7.7 L (8.4-10.2) mg/dL Total Bilirubin 1.10 (0.2-1.3) mg/dL AST 17 (17-59) U/L ALT 8 (0-50) U/L Alkaline Phosphatase 92 (38-126) U/L Serum Total Protein 7.2 (6.3-8.2) g/dL Albumin 4.4 (3.5-5.0) g/dL - Departure Departure Disposition: Home Clinical Impression: Painful bladder spasm Condition: Stable Critical Care Time: No Referrals: MIKAEL CUI [Primary Care Provider] - Follow Up with PCP/3 days Instructions: Bladder Spasms (DC) Additional Instructions: Discharge/Care Plan SUNDEEPEVA HERNAN was seen on 10/14/20 in the Emergency Room. The patient was counseled regarding Diagnosis,Lab results, Imaging studies, need for follow up and when to return to the Emergency Room. Prescriptions given: Discharge Note I have spoken with the patient and/or caregivers. I have explained the patient's condition, diagnosis and treatment plan based on the information available to me at this time. I have answered the patient's and/or caregiver's questions and addressed any concerns. The patient and/or caregivers have as good understanding of the patient's diagnosis, condition and treatment plan as can be expected at this point. The vital signs have been stable. The patient's condition is stable and appropriate for discharge from the emergency department. The patient will pursue further outpatient evaluation with the primary care physician or other designated or consulting physician as outlined in the discharge instructions. The patient and/or caregivers are agreeable to this plan of care and follow-up instructions have been explained in detail. The patient and/or caregivers have received these instruction. The patient/and or caregivers are aware that any significant change in condition or worsening of symptoms should prompt an immediate return to this or the closest emergency department or call 911. EVA URBANO was seen on 10/14/20 n the Emergency Room. At that time you were treated for an emergent condition, during your visit Laboratory, Radiology and/or other procedures may have been ordered. It is very important that you follow-up with your Primary Care Physician MIKAEL CUI within the next 24-48 hours to review your Emergency Room visit and the final results of testing that was ordered. Some test results such as Urine Cultures, Blood Cultures, and other cultures if ordered will not be finalized for 24-48 hours. If you do not have a Primary Care Provider please call the medical records department at [phone] ext [phone] to obtain a copy of your results or you may sign into our patient portal to obtain these results by visiting us @ [email or web address] and completing the following steps: 1. Click on the Patient Portal link 2. Click the Patient Self Enrollment Link to complete the enrollment form and entering your 3. Once the enrollment form is completed you will receive an email with a temp orary ID and password at the email address you provided. 4. Next choose a user name and password. Your user name must be at least 4 characters long and your password must be at least 4 characters long. 5. Choose a security question from the list and provide your answer to the question. If you already have signed into the Health Portal you may access your Health Care Information 26/01 by the following steps: 1. Login to our website @ [email or web address] 2. Enter your original user name and password. FAQS The [facility] Health Portal is an online tool that contains your Lab Results, Radiology Reports, Visit History, Discharge Instructions and Health Summary Lab and Radiology Results will not be available for 72 hours on the portal. The Portal is a secure site, passwords are encryted and URLs are re-written so they cannot be copied and pasted. You and authorized family members are the only ones who can access your Portal. Also there is a timeout feature that protects your information if you leave the Portal page open. If you have technical difficulty please use the Contact Us link on the page this will allow you to submit any questions you have regarding the Portal or you may contact the Medical Record Department at [phone]. Prescriptions: Oxybutynin Chloride [Oxybutynin Chloride ER] 10 mg PO DAILY #30 tab.[id number]
[2020-10-14 13:25] LABS: Absolute Neutrophil Ct (ANC) 8.34 (1.4-6.9); BASOPHIL % 0.5 % (0.0-0.4); Basophil (Absolute #) 0.05 (0-0.4); Eosinophil % 0.8 % (0.00-5.0); Eosinophil (Absolute #) 0.08 (0-0.5); Hematocrit 30.8 % (42-50); Lymphocyte (Absolute #) 0.57 (1.0-4.6); Mean Cell Volume 102.3 fl (78-100); Mean Corpuscular Hemoglobin 33.2 pg (26-32); Mean Corpuscular Hgb Concent. 32.5 g/dl (32-36); Monocyte (Absolute #) 0.49 (0.0-1.3); Monocytes % 5.1 % (0.0-12.0); Neutrophil % 87.6 % (36.0-66.0); Platelet Count 100 K/mm3 (150-450); Red Blood Count 3.01 M/mm3 (4.1-5.6); Red Cell Distribution Width 12.9 % (11.5-14.0); White Blood Count 9.5 K/mm3 (4.0-10.5)
[2020-10-14 13:36] LABS: ALBUMIN 4.4 g/dL (3.5-5.0); ANION GAP 17.8 MEQ/L (5-15); BILIRUBIN,TOTAL 1.1 mg/dL (0.2-1.3); Calcium 7.7 mg/dL (8.4-10.2); Creatinine 1 12.51 mg/dL (0.66-1.25); EST GLOMERULAR FILTRATION RATE 4.5 ML/MIN; Potassium 4.6 mmol/L (3.5-5.1); Total Protein 7.2 g/dL (6.3-8.2)
[2020-10-14 14:32] VITALS: BP 158/80; PULSE 61; O2SAT 95
[2020-10-14] MEDS ORDERED: Ditropan XL 5 MG PO SCH (15:00)
[2020-10-14 16:23] LABS: Slide Review 1 YES
== END 2020-10-14 15:11 | disposition home or self-care (01) ==
LOC: ED 12:41
DX: R39.89 Other symptoms and signs involving the genitourinary system (principal)
CPT/HCPCS: 36415; 80053; 85025; 99283; A9270-GY

== ENCOUNTER 2020-11-20 14:26 | Emergency (ER) | payer OTHER ==
[2020-11-20 14:41] VITALS: BP 174/106; PULSE 60; O2SAT 95
--- NOTE | 2020-11-20 14:56 | ERPHSYRPT ---
- History of Present Illness Time Seen by Provider: 11/20/20 14:44 Source: patient Exam Limitations: no limitations Patient Subjective Stated Complaint: Pt has 3 open wounds to his left foot/heel that first appeared as ring worm and so he was placing antifungal cream on it and it has now begun to ooze and itch Triage Nursing Assessment: Pt brought to the ER by his , hypertensive, pt is a dialysis pt and does dialysis at home daily, rates pain to left foot as 3/10, 3 small round open wounds to the left foot Physician History: 50 years old male with history of end-stage renal disease on dialysis presented in the ER with chief complaint of left foot 3 distinct area of rash/wounds. Patient reports almost 5 days ago he is noted a small bumps, applied antifungal [id number] cream with no relief and later on started to itch and surrounding redness making him to scratch with some serous discharge. 1 on the achilles tendon area is painful. No swelling of the foot or ankle otherwise. No fever or chills reported. Timing/Duration: day(s) (5), gradual onset, worse Quality: burning, itchy, painful Severity: moderate Location: extremities Possible Causes: no cause identified Modifying Factors: Worsens With: scratching Allergies/Adverse Reactions: ciprofloxacin [From Cipro] Allergy (Severe, Verified 11/20/20 14:41) Difficulty Breathing ciprofloxacin HCl [From Cipro] Allergy (Severe, Verified 11/20/20 14:41) Difficulty Breathing etodolac [From Lodine] Allergy (Severe, Verified 11/20/20 14:41) Difficulty Breathing polystyrene sulfonate [From Kayexalate] Allergy (Verified 11/20/20 14:41) Home Medications: Allopurinol 300 mg [Zyloprim 300 mg] 300 mg PO DAILY 03/07/13 [History] Citalopram Hydrobromide 20 mg* [ceLEXa 20 MG] 10 mg PO DAILY 03/07/13 [History] Sevelamer Carbonate [Renvela] 2 tab PO AC 03/07/13 [History] Calcium Acetate 4 cap PO TIDWM 10/18/18 [History] PANTOPRAZOLE 40 mg Tablet [Protonix 40MG Tablet] 40 mg PO QAM 10/18/18 [History] carvediloL [Carvedilol] 12.5 mg PO BID 09/13/19 [History] Hx Tetanus, Diphtheria Vaccination/Date Given: Yes Hx Influenza Vaccination/Date Given: Yes Hx Pneumococcal Vaccination/Date Given: Yes Travel Risk - International Travel Have you traveled outside of the country in past 3 weeks: No - Coronavirus Screening Are you exhibiting any of the following symptoms?: No Close contact with a COVID-19 positive Pt in past 14-21 Days: No - Vaccine Status Have you recieved a Covid-19 vaccination: No - Review of Systems Constitutional: No Symptoms Eyes: No Symptoms Respiratory: No Symptoms Cardiac: No Symptoms Abdominal/Gastrointestinal: No Symptoms Skin: Rash, Skin Lesions Neurological: No Symptoms Psychological: No Symptoms - Past Medical History Pertinent Past Medical History: Yes Neurological History: No Pertinent History ENT History: No Pertinent History Cardiac History: Hypertension Respiratory History: Asthma Endocrine Medical History: No Pertinent History Musculoskeletal History: No Pertinent History GI Medical History: GERD History: Dialysis, Renal Disease Psycho-Social History: No Pertinent History Male Reproductive Disorders: No Pertinent History Other Medical History: LEFT AV FISTULA - Past Surgical History Past Surgical History: Yes Neuro Surgical History: No Pertinent History Cardiac: No Pertinent History Respiratory: No Pertinent History Gastrointestinal: No Pertinent History Genitourinary: Other Musculoskeletal: No Pertinent History Male Surgical History: No Pertinent History Other Surgical History: bladder scope - renal biopsy - fistula and then graft - permacath - Social History Smoking Status: Current every day smoker How long have you smoked: 33yrs Exposure to second hand smoke: Yes Drug Use: none Patient Lives Alone: No - Nursing Vital Signs Nursing Vital Signs: Initial Vital Signs Temperature 98.1 F 11/20/20 14:30 Pulse Rate 60 11/20/20 14:30 Blood Pressure 174/106 11/20/20 14:30 O2 Sat by Pulse Oximetry 95 11/20/20 14:30 Pain Scale Pain Intensity 3 - Physical Exam General Appearance: no apparent distress, alert Eye Exam: eyes nml inspection Neck Exam: normal inspection, full range of motion Respiratory Exam: normal breath sounds, lungs clear Cardiovascular Exam: regular rate/rhythm, normal heart sounds Extremity Exam: other (3 distinct areas in the left foot/ankle round erythematous with loss of skin in the center but no sloughing or discharge. Minimal tenderness) Neurologic Exam: alert, oriented x 3, cooperative Skin Exam: normal color, rash SpO2 Interpretation: normal SpO2: 95 O2 Delivery: Room Air - Progress Progress: unchanged Progress Note: 11/20/20 14:56 I believe patient has insect bite with localized reaction causing him to with loss of skin. I would give him topical antibiotics and steroids. Outpatient follow-up recommended. Counseled pt/family regarding: diagnosis, need for follow-up - Departure Departure Disposition: Home Clinical Impression: Insect bite Qualifiers: Encounter type: initial encounter Site of insect bite: foot Laterality: left Qualified Code(s): S90.862A - Insect bite (nonvenomous), left foot, initial encounter; W57.XXXA - Bitten or stung by nonvenomous insect and other nonvenomous arthropods, initial encounter Condition: Stable Critical Care Time: No Referrals: MIKAEL CUI [Primary Care Provider] - Follow Up with PCP/3 days Instructions: Insect Bites and Stings (DC) Additional Instructions: Keep it clean. Apply topical antibiotics 2-3 times a day. Do not scratch it. Take Benadryl as needed. Follow-up with primary care for reevaluation. Return to ER for increasing redness discharge/swelling/pain/fever chills etc. Prescriptions: Bacitracin Zinc [Baciguent 30 gm] 30 gm TP TID #1 tube Prednisone 20 mg [Deltasone 20 mg] 60 mg PO DAILY 5 Days #15 tablet
== END 2020-11-20 15:18 | disposition home or self-care (01) ==
LOC: ED 14:26
DX: S90.862A Insect bite (nonvenomous), left foot, initial encounter (principal); W57.XXXA Bitten or stung by nonvenomous insect and other nonvenomous arthropods, initial encounter; S91.302A Unspecified open wound, left foot, initial encounter; M79.672 Pain in left foot
CPT/HCPCS: 99283

== ENCOUNTER 2021-02-08 14:53 | Emergency (ER) | payer OTHER ==
--- NOTE | 2021-02-08 15:05 | ERPHSYRPT ---
- History of Present Illness Time Seen by Provider: 02/08/21 15:04 Source: patient, family Exam Limitations: no limitations Physician History: This is a 50-year-old white male who is diabetic and has diabetic peripheral neuropathy and was working with a table saw when he tripped on the table edge injuring his right ankle then falling forward into a table saw hitting his left cheek. He states it really "run my hodges" and caused some blurred vision in my right eye. He stated he did not think it caused loss of consciousness. Timing/Duration: today Quality: painful Severity: mild Location: face, extremities (Right ankle) Allergies/Adverse Reactions: ciprofloxacin [From Cipro] Allergy (Severe, Verified 02/08/21 15:13) Difficulty Breathing ciprofloxacin HCl [From Cipro] Allergy (Severe, Verified 02/08/21 15:13) Difficulty Breathing etodolac [From Lodine] Allergy (Severe, Verified 02/08/21 15:13) Difficulty Breathing polystyrene sulfonate [From Kayexalate] Allergy (Verified 02/08/21 15:13) Home Medications: Allopurinol 300 mg [Zyloprim 300 mg] 300 mg PO DAILY 03/07/13 [History] Calcium Acetate 4 cap PO TIDWM 10/18/18 [History] PANTOPRAZOLE 40 mg Tablet [Protonix 40MG Tablet] 40 mg PO QAM 10/18/18 [History] carvediloL [Carvedilol] 12.5 mg PO BID 09/13/19 [History] Pregabalin [Lyrica 75 mg Cap] 75 mg PO DAILY 02/08/21 [History] Hx Tetanus, Diphtheria Vaccination/Date Given: Yes Hx Influenza Vaccination/Date Given: Yes Hx Pneumococcal Vaccination/Date Given: Yes Travel Risk - International Travel Have you traveled outside of the country in past 3 weeks: No - Coronavirus Screening Are you exhibiting any of the following symptoms?: No Close contact with a COVID-19 positive Pt in past 14-21 Days: No - Vaccine Status Have you recieved a Covid-19 vaccination: No - Review of Systems Constitutional: No Symptoms Eyes: No Symptoms Ears, Nose, & Throat: No Symptoms Respiratory: No Symptoms Cardiac: No Symptoms Abdominal/Gastrointestinal: No Symptoms Genitourinary Symptoms: No Symptoms Musculoskeletal: No Symptoms Skin: Other (Abrasion lateral right ankle, superficial abrasion right cheek) Neurological: No Symptoms Psychological: No Symptoms Endocrine: No Symptoms Hematologic/Lymphatic: No Symptoms Immunological/Allergic: No Symptoms All Other Systems: Reviewed and Negative - Past Medical History Pertinent Past Medical History: Yes Neurological History: No Pertinent History ENT History: No Pertinent History Cardiac History: Hypertension Respiratory History: Asthma Endocrine Medical History: No Pertinent History Musculoskeletal History: No Pertinent History GI Medical History: GERD History: Dialysis, Renal Disease Psycho-Social History: No Pertinent History Male Reproductive Disorders: No Pertinent History Other Medical History: LEFT AV FISTULA - Past Surgical History Past Surgical History: Yes Neuro Surgical History: No Pertinent History Cardiac: No Pertinent History Respiratory: No Pertinent History Gastrointestinal: No Pertinent History Genitourinary: Other Musculoskeletal: No Pertinent History Male Surgical History: No Pertinent History Other Surgical History: bladder scope - renal biopsy - fistula and then graft - permacath - Social History Smoking Status: Current every day smoker How long have you smoked: 33yrs Exposure to second hand smoke: Yes Drug Use: none Patient Lives Alone: No - Nursing Vital Signs Nursing Vital Signs: Initial Vital Signs Temperature 97.8 F 02/08/21 15:01 Pulse Rate 73 02/08/21 15:01 Blood Pressure 133/80 02/08/21 15:01 O2 Sat by Pulse Oximetry 97 02/08/21 15:01 Pain Scale Pain Intensity 8 - Physical Exam General Appearance: no apparent distress, alert, anxiety Eye Exam: PERRL/EOMI, eyes nml inspection Ears, Nose, Throat Exam: normal ENT inspection, moist mucous membranes Neck Exam: normal inspection, non-tender, supple, full range of motion Respiratory Exam: airway intact, No chest tenderness, No respiratory distress Cardiovascular Exam: regular rate/rhythm, normal heart sounds, normal peripheral pulses Gastrointestinal/Abdomen Exam: soft, No tenderness Rectal Exam: not done Back Exam: normal inspection, normal range of motion, No CVA tenderness, No vertebral tenderness Extremity Exam: normal inspection, normal range of motion, pelvis stable Neurologic Exam: alert, oriented x 3, cooperative, 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, normal mood/affect, nml cerebellar function, nml station & gait, sensation nml Skin Exam: warm, dry, abrasion (Small right cheek, lateral aspect right ankle) Lymphatic Exam: No adenopathy SpO2 Interpretation: normal O2 Delivery: Room Air - Course Nursing assessment & vital signs reviewed: Yes Ordered Tests: Active Orders 24 hr Category Date Time Status ANKLE (3 VIEWS) Stat Exams 02/08/21 15:28 Completed HEAD WITHOUT CONTRAST [CT] Stat Exams 02/08/21 15:27 Completed Medication Summary Discontinued Medications Generic Name Dose Route Start Last Admin Trade Name Dayna PRN Reason Stop Dose Admin Diphtheria/Tetanus/Acell Pertussis 0.5 ml 02/08/21 15:29 02/08/21 15:49 Adacel Vial IM 02/08/21 15:30 0.5 ml .ONCE ONE Administration Diphtheria/Tetanus/Acell Pertussis Confirm 02/08/21 15:44 Adacel Vial Administered 02/08/21 15:45 Dose 0.5 ml IM .STK-MED ONE - Progress Progress: unchanged Progress Note: 02/08/21 17:16 CAT scan of the head without contrast shows no acute intracranial abnormality or cranial fractures. X-ray of right ankle reveals no evidence of any acute fracture. Counseled pt/family regarding: diagnosis, need for follow-up, rad results - Departure Departure Disposition: Home Clinical Impression: Fall with no significant injury, Abrasion Condition: Stable Critical Care Time: No Referrals: MIKAEL CUI [Primary Care Provider] - Additional Instructions: Ice pack to tender swollen areas 3 times a day. Keep abrasion sites clean daily with soap and water and may apply thin layer of antibiotic ointment of choice to the sites once daily. Follow-up with primary care physician for further management if needed
[2021-02-08 15:13] VITALS: BP 133/80; PULSE 73; O2SAT 97
[2021-02-08] MEDS ORDERED: Adacel Vial IM ONE (15:44)
[2021-02-08] MEDS: Adacel Vial IM ONE (15:49)
--- NOTE | 2021-02-08 16:27 | XRAY ---
Exam: 3 views of the right ankle from 02/08/2021. Comparison: None. Indication: Right ankle injury. Findings: AP, oblique, and lateral radiographs of the right ankle were obtained. I see no acute fracture or dislocation of the right ankle. The right ankle mortise appears unremarkable on the AP image. Some atherosclerotic vascular calcification is seen within the distal posterior tibial artery on the lateral radiograph. I also see some vascular calcification inferior to the medial malleolus and along the plantar aspect of the right foot. Is this patient diabetic? A prominent accessory bone (os trigonum) is seen posterior to the right talus. No calcaneal spurring is seen. Impression: 1. No acute right ankle fracture or dislocation is seen. 2. Fairly extensive atherosclerotic vascular calcification is seen in this 50-year-old male patient. Is he diabetic?
--- NOTE | 2021-02-08 16:30 | XRAY ---
Exam: CT of the head without IV contrast from 02/08/2021. CTDI: 53.92 mGy Comparison: CT of the head without IV contrast from 10/15/2018. Indication: 50-year-old male fell striking head today. Technique: Non-IV contrast axial images were obtained through the brain. Reconstructed coronal and sagittal images were created and reviewed. Findings: The ventricles appear of normal size. No focal mass effect or midline shift is seen. There is no evidence of acute intracranial bleed or abnormal extra-axial fluid collection. The muñiz matter-white matter interfaces appear unremarkable. No low attenuation infarct is seen within a major cerebral or cerebellar artery distribution. The cortical sulci and basilar cisterns appear unremarkable. I believe there is some hyperostosis frontalis interna. No fracture of the calvarium of the skull is seen. There is at least moderate mucoperiosteal thickening within the left maxillary sinus, primarily within the inferior lateral portion. An air-fluid level is not seen. Minimal mucosal thickening is seen within the inferior aspect of the right maxillary sinus. The infundibulum of the left ostiomeatal complex appears blocked with soft tissue density. The infundibulum on the right is narrow, but patent. The frontal sinuses are expansive but clear. Ethmoid sinuses appear unremarkable. Scant mucosal thickening is seen within the medial aspect of the left sphenoid sinus. Again, no air-fluid levels are seen. The mastoid air cells are also expansive, but clear without effusion. The middle ear cavities appear unremarkable. The internal auditory canals appear symmetric. The orbits appear unremarkable. Incidentally, the globes of each eye appear deviated to the right. Impression: 1. There is no acute intracranial bleed or other acute intracranial process. 2. There is at least moderate chronic paranasal sinus disease within the left maxillary sinus without evidence of air-fluid level. The left maxillary sinus was incompletely included within the [id number] on the prior study. Minimal mucosal thickening is seen within the inferior right maxillary sinus and the left sphenoid sinus. 3. Hyperostosis frontalis interna. 4. No fracture of the calvarium of the skull is seen.
== END 2021-02-08 17:46 | disposition home or self-care (01) ==
LOC: ED 14:53
DX: S00.81XA Abrasion of other part of head, initial encounter (principal); S90.511A Abrasion, right ankle, initial encounter; W01.198A Fall on same level from slipping, tripping and stumbling with subsequent striking against other object, initial encounter; Y93.89 Activity, other specified; Y92.89 Other specified places as the place of occurrence of the external cause
CPT/HCPCS: 70450; 73610; 90471; 90715; 99283

== ENCOUNTER 2021-03-02 23:10 | Emergency (ER) | payer OTHER ==
[2021-03-03] MEDS ORDERED: Hydromorphone 1 mg/ml Injection IM ONE (00:01)
[2021-03-03] MEDS ORDERED: Reglan 10 MG/2 ML IM ONE (00:02)
[2021-03-03] MEDS ORDERED: Hydromorphone 1 mg/ml Injection ONE (00:14)
[2021-03-03] MEDS ORDERED: Reglan 10 MG/2 ML ONE (00:14)
--- NOTE | 2021-03-03 01:40 | ERPHSYRPT ---
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 His headache is primarily left-sided and goes up to the left side of the head. He had a CT at the time of his fall which was negative of the head. He has been very nauseated no vomiting no fever chills or sweats. Severity: severe Head Injury Location: frontal, parietal Method of Injury: fell Loss of Consciousness: brief (seconds) Associated Symptoms: nausea, headaches, No vomiting Allergies/Adverse Reactions: ciprofloxacin [From Cipro] Allergy (Severe, Verified 03/02/21 23:25) Difficulty Breathing ciprofloxacin HCl [From Cipro] Allergy (Severe, Verified 03/02/21 23:25) Difficulty Breathing etodolac [From Lodine] Allergy (Severe, Verified 03/02/21 23:25) Difficulty Breathing polystyrene sulfonate [From Kayexalate] Allergy (Verified 03/02/21 23:25) Home Medications: Allopurinol 300 mg [Zyloprim 300 mg] 300 mg PO DAILY 03/07/13 [History] Calcium Acetate 4 cap PO TIDWM 10/18/18 [History] PANTOPRAZOLE 40 mg Tablet [Protonix 40MG Tablet] 40 mg PO QAM 10/18/18 [History] carvediloL [Carvedilol] 12.5 mg PO BID 09/13/19 [History] Hx Tetanus, Diphtheria Vaccination/Date Given: Yes Hx Influenza Vaccination/Date Given: Yes Hx Pneumococcal Vaccination/Date Given: Yes Travel Risk - International Travel Have you traveled outside of the country in past 3 weeks: No - Coronavirus Screening Are you exhibiting any of the following symptoms?: No Close contact with a COVID-19 positive Pt in past 14-21 Days: No - Vaccine Status Have you recieved a Covid-19 vaccination: Yes 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[employer] - Vaccination Dates Date of 2cond Vaccination (if applicable): N/A - Review of Systems Constitutional: No Fever, No Chills Eyes: No Symptoms Ears, Nose, & Throat: No Symptoms Respiratory: No Cough, No Dyspnea Cardiac: No Chest Pain, No Edema, No Syncope Abdominal/Gastrointestinal: No Abdominal Pain, No Nausea, No Vomiting, No Diarrhea Genitourinary Symptoms: No Dysuria Musculoskeletal: No Back Pain, No Neck Pain Skin: No Rash Neurological: Headache, No Dizziness, No Focal Weakness, No Sensory Changes Psychological: No Symptoms Endocrine: No Symptoms All Other Systems: Reviewed and Negative - Past Medical History Pertinent Past Medical History: Yes Neurological History: No Pertinent History ENT History: No Pertinent History Cardiac History: Hypertension Respiratory History: Asthma Endocrine Medical History: No Pertinent History Musculoskeletal History: No Pertinent History GI Medical History: GERD History: Dialysis, Renal Disease Psycho-Social History: No Pertinent History Male Reproductive Disorders: No Pertinent History Other Medical History: LEFT AV FISTULA - Past Surgical History Past Surgical History: Yes Neuro Surgical History: No Pertinent History Cardiac: No Pertinent History Respiratory: No Pertinent History Gastrointestinal: No Pertinent History Genitourinary: Other Musculoskeletal: No Pertinent History Male Surgical History: No Pertinent History Other Surgical History: bladder scope - renal biopsy - fistula and then graft - permacath - Social History Smoking Status: Current every day smoker How long have you smoked: 33yrs Exposure to second hand smoke: Yes Drug Use: none Patient Lives Alone: No - Nursing Vital Signs Nursing Vital Signs: Initial Vital Signs Temperature 98.2 F 03/02/21 23:26 Pulse Rate 68 03/02/21 23:26 Respiratory Rate 18 03/02/21 23:26 Blood Pressure 182/104 03/02/21 23:26 O2 Sat by Pulse Oximetry 97 03/02/21 23:26 Pain Scale Pain Intensity 4 - Helen Coma Score Best Eye Response (Helen): (4) open spontaneously Best Verbal Response (Helen): (5) oriented Best Motor Response (Jesús): (6) obeys commands Jesús Total: 15 - Physical Exam General Appearance: no apparent distress, alert Eye Exam: bilateral eye: PERRL, EOMI ENT Exam: airway nml Cardiovascular/Respiratory Exam: chest non-tender, normal breath sounds, regular rate/rhythm Gastrointestinal/Abdominal Exam: soft, non tender, no distention Back Exam: normal inspection, No vertebral tenderness Extremity Exam: non-tender, normal range of motion, normal inspection Mental Status Exam: alert, oriented x 3, cooperative Motor/Sensory Exam: no motor deficit, no sensory deficit, CN II-XII intact Skin Exam: normal color, warm, dry, No rash SpO2: 97 - Course Nursing assessment & vital signs reviewed: Yes - CT Exams Head CT Interpretation: Tele-radiologist Report Maxillofacial Bones CT Interpretation: Tele-radiologist Report Ordered Tests: Active Orders 24 hr Category Date Time Status FACIAL BONES WO CONTRAST [CT] Stat Exams 03/03/21 00:16 Taken HEAD WITHOUT CONTRAST [CT] Stat Exams 03/03/21 00:16 Taken Medication Summary Discontinued Medications Generic Name Dose Route Start Last Admin Trade Name Freq PRN Reason Stop Dose Admin Hydromorphone HCl 2 mg 03/03/21 00:01 03/03/21 00:20 Hydromorphone 1 Mg/Ml Injection IM 03/03/21 00:02 2 mg STAT ONE Administration Hydromorphone HCl Confirm 03/03/21 00:14 Hydromorphone 1 Mg/Ml Injection Administered 03/03/21 00:15 Dose 2 mg .ROUTE .STK-MED ONE Metoclopramide HCl 10 mg 03/03/21 00:02 03/03/21 00:19 Reglan 10 Mg/2 Ml IM 03/03/21 00:03 10 mg STAT ONE Administration Metoclopramide HCl Confirm 03/03/21 00:14 Reglan 10 Mg/2 Ml Administered 03/03/21 00:15 Dose 10 mg .ROUTE .STK-MED ONE - Progress Progress: improved - Departure Departure Disposition: Home Clinical Impression: Post-concussion headache, Maxillary sinusitis Condition: Stable Critical Care Time: No Referrals: MIKAEL CUI [Primary Care Provider] - Instructions: Headache, Adult (DC), Sinusitis, Adult (DC) Prescriptions: Cefdinir 300 mg PO BID 7 Days #14 cap Prednisone 10 mg [Deltasone 10 mg] 10 mg PO TID #12 tablet
[2021-03-03] MEDS ORDERED: NORCO 5/325 MG PO ONE (01:41)
[2021-03-03] MEDS ORDERED: NORCO 5/325 MG ONE (01:49)
[2021-03-03 02:03] VITALS: BP 178/88; PULSE 62; O2SAT 98
--- NOTE | 2021-03-03 07:27 | XRAY ---
Indication: Serial headache. Status post fall. Multiple contiguous axial images obtained through the head without contrast. Comparison: February 08, 2021. Normal appearing brain parenchyma, ventricles, and bony calvarium for patient's age. Again moderate mucosal thickening left maxillary sinus with now tiny fluid leveling. Remaining visualized paranasal sinuses and mastoid air cells are clear. Impression: Continued left maxillary sinus disease. Remaining CT head without contrast exam is again negative. Comment: Preliminary interpretation made by [facility]. No critical discrepancy.
--- NOTE | 2021-03-03 07:29 | XRAY ---
Indication: Severe headache and photophobia. Status post fall. Multiple contiguous axial images obtained through the facial bones. Sagittal and coronal reformatted images obtained. Comparison: None. No acute fracture, suspicious for lesions, or radiopaque foreign body. Orbits including roof, hammond, floors are intact. Left maxillary sinus demonstrates moderate mucosal thickening. Remaining paranasal sinuses and nasal passages are clear. Moderate nasal septal deviation to the left. Remaining visualized noncontrasted soft tissues are unremarkable. CT head reported separately. Impression: Left maxillary sinus disease and nasal septal deviation. Remaining CT facial bones negative. Comment: Preliminary interpretation made by [facility]. No critical discrepancy.
== END 2021-03-03 02:03 | disposition home or self-care (01) ==
LOC: ED 23:10
DX: G44.301 Post-traumatic headache, unspecified, intractable (principal); J32.0 Chronic maxillary sinusitis; R11.0 Nausea; Z79.899 Other long term (current) drug therapy
CPT/HCPCS: 70450; 70486; 96372; 99284; J1170; A9270-GY

== ENCOUNTER 2021-03-10 11:41 | Emergency (ER) | payer OTHER ==
--- NOTE | 2021-03-10 11:47 | ERPHSYRPT ---
- History of Present Illness Time Seen by Provider: 03/10/21 11:47 Source: patient Exam Limitations: no limitations Physician History: This is a 50-year-old diabetic white male with history of hypertension and renal failure on dialysis who also has peripheral neuropathy gastroesophageal reflux disease and gout and presents with left arm pain as well as right sided sinus pressure. Patient was recently diagnosed with right sinus infection via CAT scan and was treated with cefdinir and steroids. His symptoms are still present and feels a lot of pressure in that area. Patient did take his blood pressure medication just prior to arrival to the emergency department today. Patient also had relatively recent surgery in his left upper extremity for modification of a left forearm AV fistula. Patient states that he is going out of town to [place] for second opinion regarding his fistula and medical condition this coming Thursday. What the patient is wanting today is another round of antibiotics and steroid to help with his sinus infection. He also would like something to control his sinus pain and left upper extremity pain. Occurred: days ago Method of Injury: other (No injury) Quality: aching, other (Pressure) Severity of Pain-Max: mild (To moderate) Severity of Pain-Current: mild (To moderate) Extremities Pain Location: other: left (Forearm) Associated Symptoms: none Allergies/Adverse Reactions: ciprofloxacin [From Cipro] Allergy (Severe, Verified 03/10/21 11:56) Difficulty Breathing ciprofloxacin HCl [From Cipro] Allergy (Severe, Verified 03/10/21 11:56) Difficulty Breathing etodolac [From Lodine] Allergy (Severe, Verified 03/10/21 11:56) Difficulty Breathing polystyrene sulfonate [From Kayexalate] Allergy (Verified 03/10/21 11:56) Home Medications: Allopurinol 300 mg [Zyloprim 300 mg] 300 mg PO DAILY 03/07/13 [History] Calcium Acetate 4 cap PO TIDWM 10/18/18 [History] PANTOPRAZOLE 40 mg Tablet [Protonix 40MG Tablet] 40 mg PO QAM 10/18/18 [History] carvediloL [Carvedilol] 12.5 mg PO BID 09/13/19 [History] Hx Tetanus, Diphtheria Vaccination/Date Given: Yes Hx Influenza Vaccination/Date Given: Yes Hx Pneumococcal Vaccination/Date Given: Yes Travel Risk - International Travel Have you traveled outside of the country in past 3 weeks: No - Coronavirus Screening Are you exhibiting any of the following symptoms?: No Close contact with a COVID-19 positive Pt in past 14-21 Days: No - Vaccine Status Have you recieved a Covid-19 vaccination: 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[employer] - Vaccination Dates Date of 2cond Vaccination (if applicable): N/A - Review of Systems Constitutional: No Symptoms Eyes: No Symptoms Ears, Nose, & Throat: No Symptoms Respiratory: No Symptoms Cardiac: No Symptoms Abdominal/Gastrointestinal: No Symptoms Genitourinary Symptoms: No Symptoms Musculoskeletal: Other (Left forearm pain) Skin: No Symptoms Neurological: No Symptoms Psychological: No Symptoms Endocrine: No Symptoms Hematologic/Lymphatic: No Symptoms Immunological/Allergic: No Symptoms All Other Systems: Reviewed and Negative - Past Medical History Pertinent Past Medical History: Yes Neurological History: No Pertinent History ENT History: No Pertinent History Cardiac History: Hypertension Respiratory History: Asthma Endocrine Medical History: No Pertinent History Musculoskeletal History: No Pertinent History GI Medical History: GERD History: Dialysis, Renal Disease Psycho-Social History: No Pertinent History Male Reproductive Disorders: No Pertinent History Other Medical History: LEFT AV FISTULA - Past Surgical History Past Surgical History: Yes Neuro Surgical History: No Pertinent History Cardiac: No Pertinent History Respiratory: No Pertinent History Gastrointestinal: No Pertinent History Genitourinary: Other Musculoskeletal: No Pertinent History Male Surgical History: No Pertinent History Other Surgical History: bladder scope - renal biopsy - fistula and then graft - permacath - Social History Smoking Status: Current every day smoker How long have you smoked: 33yrs Exposure to second hand smoke: Yes Drug Use: none Patient Lives Alone: No - Nursing Vital Signs Nursing Vital Signs: Initial Vital Signs Temperature 97.8 F 03/10/21 11:45 Pulse Rate 65 03/10/21 11:45 Blood Pressure 225/116 03/10/21 11:45 O2 Sat by Pulse Oximetry 98 03/10/21 11:45 Pain Scale Pain Intensity 9 - Physical Exam General Appearance: no apparent distress, alert, anxiety Eyes, Ears, Nose, Throat Exam: normal ENT inspection, moist mucous membranes Neck Exam: normal inspection, non-tender, supple, full range of motion Cardiovascular/Respiratory Exam: chest non-tender, no respiratory distress Abdominal Exam: non-tender Back Exam: normal inspection, normal range of motion, No CVA tenderness, No vertebral tenderness Shoulder Exam: normal inspection, non-tender, no evidence of injury, normal ROM Elbow/Forearm Exam: normal ROM, soft tissue tenderness (In the area of healing surgical site. There is no evidence of any infection. Patient is able to move his entire extremity. There is palpable thrill in the left wrist AV fistula. There is no evidence of any ischemia.) Wrist Exam: normal ROM Hand Exam: normal inspection, non-tender, no evidence of injury, normal ROM, stiffness Neuro/Tendon Exam: normal sensation, normal motor functions, normal tendon functions Mental Status Exam: alert, oriented x 3, cooperative Skin Exam: normal color, warm, dry SpO2 Interpretation: normal O2 Delivery: Room Air - Course Nursing assessment & vital signs reviewed: Yes Ordered Tests: Medication Summary Discontinued Medications Generic Name Dose Route Start Last Admin Trade Name Freq PRN Reason Stop Dose Admin Clonidine 0.1 mg 03/10/21 12:14 Catapres 0.1 Mg PO 03/10/21 12:15 STAT ONE Methylprednisolone Sodium 0 mg 03/10/21 12:15 Succinate 125 mg/ Sterile IM 03/10/21 12:16 Water 2 ml STAT ONE Hydromorphone HCl 1 mg 03/10/21 12:16 Hydromorphone 1 Mg/Ml Injection IM 03/10/21 12:17 STAT ONE Ondansetron HCl 4 mg 03/10/21 12:15 Zofran Odt 4 Mg PO 03/10/21 12:16 STAT ONE - Progress Progress: improved, pain not gone completely Counseled pt/family regarding: lab results, diagnosis, need for follow-up - Departure Departure Disposition: Home Clinical Impression: Right maxillary sinusitis, Hypertension, Right forearm pain Condition: Stable Critical Care Time: No Referrals: MIKAEL RICO [Primary Care Provider] - Additional Instructions: Keep surgical site clean daily with soap and water. Take your medication as prescribed. Follow-up with your surgeon and primary care physician for further management. Prescriptions: Hydrocodone/APAP 5/325 [Mathews 5/325 mg] 1 each PO Q8H PRN PRN #8 tablet MDD 3 PRN Reason: Pain Methylprednisolone Packet [Medrol Dosepack] 4 mg PO UD #1 packet Azithromycin 250 mg [Zithromax 250 MG TABLET] 250 mg PO ZPACK #6 tablet
[2021-03-10] MEDS ORDERED: Catapres 0.1 MG PO ONE (12:14)
[2021-03-10] MEDS ORDERED: solu-MEDROL 125 MG, Sterile H2O 10 ml 2 ML IM ONE ×2 (12:15)
[2021-03-10] MEDS ORDERED: ZOFRAN ODT 4 MG PO ONE (12:15)
[2021-03-10] MEDS ORDERED: Hydromorphone 1 mg/ml Injection IM ONE (12:16)
[2021-03-10] MEDS ORDERED: Catapres 0.1 MG ONE (12:25)
[2021-03-10] MEDS ORDERED: ZOFRAN ODT 4 MG ONE (12:25)
[2021-03-10] MEDS ORDERED: solu-MEDROL ONE (12:26)
[2021-03-10] MEDS ORDERED: Hydromorphone 1 mg/ml Injection ONE (12:26)
[2021-03-10] MEDS ORDERED: Sterile H2O 10 ml IJ ONE (12:29)
[2021-03-10 13:00] VITALS: BP 142/79; PULSE 58; O2SAT 100
== END 2021-03-10 13:25 | disposition home or self-care (01) ==
LOC: ED 11:41
DX: J32.0 Chronic maxillary sinusitis (principal); I10 Essential (primary) hypertension; M79.631 Pain in right forearm
CPT/HCPCS: 96372; 99284; J1170; J2930; Q0162; A9270-GY

== ENCOUNTER 2022-06-11 12:39 | Emergency (ER) | payer OTHER ==
[2022-06-11] MEDS ORDERED: solu-MEDROL 125 MG, Sterile H2O 10 ml 2 ML IV ONE ×2 (12:57)
[2022-06-11] MEDS ORDERED: DUONEB 0.5-3 MG/3 ml Neb IH ONE ×2 (12:57→13:05)
[2022-06-11 13:08] LABS: Absolute Neutrophil Ct (ANC) 2.86 x10^3/uL (1.4-6.9); Basophil (Absolute #) 0.01 x10^3/uL (0-0.4); Eosinophil % 2.2 % (0.00-5.0); Eosinophil (Absolute #) 0.08 x10^3/uL (0-0.5); Hematocrit 37.7 % (42-50); Hemoglobin 12.4 g/dL (12.5-18.0); Lymphocyte (Absolute #) 0.46 x10^3/uL (1.0-4.6); Lymphocytes % 12.7 % (24.0-44.0); Mean Cell Volume 97.9 fL (78-100); Mean Corpuscular Hemoglobin 32.2 pg (26-32); Mean Corpuscular Hgb Concent. 32.9 g/dL (32-36); Mean Platelet Volume 10.4 fL (7.5-11.0); Monocyte (Absolute #) 0.19 x10^3/uL (0.0-1.3); Monocytes % 5.2 % (0.0-12.0); Platelet Count 78 x10^3/uL (150-450); Red Blood Count 3.85 x10^6/uL (4.1-5.6); Red Cell Distribution Width 13.9 % (11.5-14.0); White Blood Count 3.6 x10^3/uL (4.0-10.5)
[2022-06-11 13:17] VITALS: BP 133/87
[2022-06-11] MEDS ORDERED: Sterile H2O 10 ml IJ ONE (13:19)
[2022-06-11] MEDS ORDERED: solu-MEDROL ONE (13:19)
[2022-06-11 13:28] LABS: Creatinine 1 16.36 mg/dL (0.66-1.25); EST GLOMERULAR FILTRATION RATE 3.3 ML/MIN
[2022-06-11 13:29] LABS: ALBUMIN 4.1 g/dL (3.5-5.0); ANION GAP 21.4 MEQ/L (5-15); BILIRUBIN,TOTAL 0.7 mg/dL (0.2-1.3); Calcium 6.6 mg/dL (8.4-10.2); Total Protein 6.5 g/dL (6.3-8.2)
[2022-06-11 13:41] VITALS: PULSE 66; O2SAT 95
[2022-06-11 13:45] LABS: Slide Review 1 YES
--- NOTE | 2022-06-11 13:51 | XRAY ---
Indication: Short of breath. Comparison: June 29, 2019 Portable chest underinflated again with a few left lung calcified granulomas. New minimal right base linear infiltrate versus atelectasis. Heart not enlarged. New left axilla stent. Bony thorax intact.
[2022-06-11 14:12] LABS: INFLUENZA A NEGATIVE (NEGATIVE); INFLUENZA B NEGATIVE (NEGATIVE); RESPIRATORY SYNCTIAL VIRUS NEGATIVE (Negative)
[2022-06-11 14:14] LABS: SARS-CoV-2 Xpert Express POSITIVE (NEGATIVE)
--- NOTE | 2022-06-11 14:46 | ERPHSYRPT ---
- History of Present Illness Time Seen by Provider: 06/11/22 12:45 Source: patient, family Exam Limitations: no limitations Patient Subjective Stated Complaint: pt here for sob for a week now, cough, low grade fever, headache, pt does home dialysis last time was 2 days ago, Triage Nursing Assessment: pt alert, walked in with spouse, [place] , resp labored with movement, no cough, skin w.d.p. has graft to left arm, no edema noted Physician History: Patient is a 52-year-old white male who presents with a complaint of shortness of breath cough headache etc. his has been diagnosed with COVID but she seems to have recovered. He complains of shortness of breath headache and is been sick for 1 week. His temperature has gone to 100.5. He is on home hemodialysis at least 5 times per week. Timing/Duration: week(s) (1) Activities at Onset: none Severity of Dyspnea-Max: moderate Severity of Dyspnea-Current: moderate Possible Cause: occasional episodes Modifying Factors: Improves With: coughing Associated Symptoms: cough, wheezing, chills Allergies/Adverse Reactions: ciprofloxacin [From Cipro] Allergy (Severe, Verified 06/11/22 12:47) Difficulty Breathing ciprofloxacin HCl [From Cipro] Allergy (Severe, Verified 06/11/22 12:47) Difficulty Breathing etodolac [From Lodine] Allergy (Severe, Verified 06/11/22 12:47) Difficulty Breathing chlorhexidine Allergy (Verified 06/11/22 12:51) polystyrene sulfonate [From Kayexalate] Allergy (Verified 06/11/22 12:47) Home Medications: Famotidine 20 mg [Pepcid 20 MG] 20 mg PO DAILY 06/11/22 [History] Hx Tetanus, Diphtheria Vaccination/Date Given: Yes Hx Influenza Vaccination/Date Given: Yes Hx Pneumococcal Vaccination/Date Given: No Immunizations Up to Date: Yes Travel Risk - International Travel Have you traveled outside of the country in past 3 weeks: No - Coronavirus Screening Are you exhibiting any of the following symptoms?: Yes Symptoms: Fever, Cough: New Onset, Shortness of Breath, Headaches/Body Aches/Fatigue - Vaccine Status Have you recieved a Covid-19 vaccination: Yes [employer]: [employer] - Vaccination Dates Date of 2cond Vaccination (if applicable): ? - Review of Systems Constitutional: Fever, No Chills Eyes: No Symptoms Ears, Nose, & Throat: Nose Congestion Respiratory: Cough, Dyspnea, Dyspnea on Exertion ([place]), Wheezing Cardiac: No Chest Pain, No Edema, No Syncope Abdominal/Gastrointestinal: No Abdominal Pain, No Nausea, No Vomiting, No Diarrhea Genitourinary Symptoms: No Dysuria Musculoskeletal: Arthralgias, Myalgias, No Back Pain, No Neck Pain Skin: No Rash Neurological: No Dizziness, No Focal Weakness, No Sensory Changes Psychological: No Symptoms Endocrine: No Symptoms All Other Systems: Reviewed and Negative - Past Medical History Pertinent Past Medical History: Yes Neurological History: No Pertinent History ENT History: No Pertinent History Cardiac History: Hypertension Respiratory History: Asthma Endocrine Medical History: No Pertinent History Musculoskeletal History: No Pertinent History GI Medical History: GERD History: Dialysis, Renal Disease Psycho-Social History: No Pertinent History Male Reproductive Disorders: No Pertinent History Other Medical History: LEFT AV FISTULA - Past Surgical History Past Surgical History: Yes Neuro Surgical History: No Pertinent History Cardiac: No Pertinent History Respiratory: No Pertinent History Gastrointestinal: No Pertinent History Genitourinary: Other Musculoskeletal: No Pertinent History Male Surgical History: No Pertinent History Other Surgical History: bladder scope - renal biopsy - fistula and then graft - permacath - Social History Smoking Status: Current every day smoker How long have you smoked: 33yrs Exposure to second hand smoke: Yes Drug Use: none Patient Lives Alone: No - Nursing Vital Signs Nursing Vital Signs: Initial Vital Signs Respiratory Rate 18 06/11/22 12:40 Blood Pressure 133/87 06/11/22 12:40 O2 Sat by Pulse Oximetry 98 06/11/22 12:40 Pain Scale Pain Intensity 9 - Physical Exam General Appearance: mild distress, alert Eye Exam: PERRL/EOMI Ears, Nose, Throat Exam: nasal congestion, No hearing grossly normal Neck Exam: normal inspection, supple Respiratory Exam: respiratory distress (Mild), airway intact, crackles/rales, rhonchi, wheezing Cardiovascular/Chest Exam: normal heart sounds, regular rate/rhythm Abdominal/Gastrointestinal Exam: soft, No tenderness, No distention, No mass Extremity Exam: non-tender, normal range of motion, normal inspection, no calf tenderness, no pedal edema Neurologic Exam: alert, oriented x 3, cooperative, 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, sensation nml, No motor deficits Skin Exam: normal color, warm, No dry SpO2 Interpretation: normal SpO2: 95 O2 Delivery: Room Air - Course Nursing assessment & vital signs reviewed: Yes EKG Interpreted by Me: RATE (67), Sinus Rhythm, NORMAL AXIS, NORMAL QRS, Non- specific ST Changes, Other (Borderline prolonged QT interval and probable left atrial enlargement) - Radiology Exams Chest X-ray Interpretation: Reviewed by me, Other (Linear atelectasis versus infiltrate right base) Ordered Tests: Active Orders 24 hr Category Date Time Status EKG-ER Only STAT Care 06/11/22 12:57 Active IV Insertion STAT Care 06/11/22 12:57 Active CHEST 1 VIEW (PORTABLE) Stat Exams 06/11/22 12:58 Completed BLOOD CULTURE Stat Lab 06/11/22 13:30 Received CBC W DIFF Stat Lab 06/11/22 12:52 Completed CMP Stat Lab 06/11/22 12:52 Completed Lactic Acid Stat Lab 06/11/22 12:57 Completed MAGNESIUM Stat Lab 06/11/22 12:52 Completed NT PRO BNP Stat Lab 06/11/22 12:52 Completed TROPONIN Q4H Lab 06/11/22 12:52 Completed TROPONIN Q4H Lab 06/11/22 17:00 Ordered TROPONIN Q4H Lab 06/11/22 21:00 Ordered Respiratory Therapy Assessment DAILY RT 06/11/22 13:37 Active Medication Summary Discontinued Medications Generic Name Dose Route Start Last Admin Trade Name Freq PRN Reason Stop Dose Admin Albuterol/Ipratropium 3 ml 06/11/22 12:57 06/11/22 13:10 Ipratropium/Albuterol Sulfate 3 Ml Ampul.Neb IH 06/11/22 12:58 3 ml STAT ONE Administration Albuterol/Ipratropium Confirm 06/11/22 13:05 Ipratropium/Albuterol Sulfate 3 Ml Ampul.Neb Administered 06/11/22 13:06 Dose 3 ml IH .STK-MED ONE Methylprednisolone Sodium 0 mg 06/11/22 12:57 06/11/22 13:21 Succinate 125 mg/ Sterile IV 06/11/22 12:58 125 mg Water 2 ml STAT ONE Administration Methylprednisolone Sodium Succinate Confirm 06/11/22 13:19 Methylprednis Sod Succ 125 Mg/2 Ml Vial Administered 06/11/22 13:20 Dose 125 mg .ROUTE .STK-MED ONE Sterile Water Confirm 06/11/22 13:19 Water For Injection,Sterile 10 Ml Vial Administered 06/11/22 13:20 Dose 10 ml IJ .Extreme DA-Logentries ONE Lab/Rad Data: Laboratory Result Diagrams 06/11/22 12:52 06/11/22 12:52 Laboratory Results 06/11/22 06/11/22 06/11/22 Range/Units 13:30 12:57 12:52 WBC (4.0-10.5) x10^3/uL RBC (4.1-5.6) x10^6/uL Hgb (12.5-18.0) g/dL Hct (42-50) % MCV (78-100) fL MCH (26-32) pg MCHC (32-36) g/dL RDW (11.5-14.0) % Plt Count (150-450) x10^3/uL MPV (7.5-11.0) fL Gran % (36.0-66.0) % Immature Gran % (Auto) (0.00-0.4) % Nucleat RBC Rel Count (0.00-0.1) % Eos # (Auto) (0-0.5) x10^3/uL Immature Gran # (Auto) (0.00-0.03) x10^3u/L Absolute Lymphs (auto) (1.0-4.6) x10^3/uL Absolute Monos (auto) (0.0-1.3) x10^3/uL Absolute Nucleated RBC (0.00-0.01) x10^3u/L Lymphocytes % (24.0-44.0) % Monocytes % (0.0-12.0) % Eosinophils % (0.00-5.0) % Basophils % (0.0-0.4) % Absolute Granulocytes (1.4-6.9) x10^3/uL Basophils # (0-0.4) x10^3/uL Sodium (137-145) mmol/L Potassium (3.5-5.1) mmol/L Chloride (98-107) mmol/L Carbon Dioxide (22-30) mmol/L Anion Gap (5-15) MEQ/L BUN (9-20) mg/dL Creatinine (0.66-1.25) mg/dL Estimated GFR ML/MIN Glucose (74-106) mg/dL Lactic Acid 1.1 (0.4-2.0) Calcium (8.4-10.2) mg/dL Magnesium (1.6-2.3) mg/dL Total Bilirubin (0.2-1.3) mg/dL AST (17-59) U/L ALT (0-50) U/L Alkaline Phosphatase (38-126) U/L Troponin I 0.063 H* (0.000-0.034) ng/mL NT-Pro-B Natriuret Pep (0-900) pg/mL Serum Total Protein (6.3-8.2) g/dL Albumin (3.5-5.0) g/dL Influenza Type A Ag NEGATIVE (NEGATIVE) Influenza Type B Ag NEGATIVE (NEGATIVE) RSV (PCR) NEGATIVE (Negative) SARS-CoV-2 (PCR) POSITIVE A (NEGATIVE) Slides for Path Review 06/11/22 06/11/22 Range/Units 12:52 12:52 WBC 3.6 L (4.0-10.5) x10^3/uL RBC 3.85 L (4.1-5.6) x10^6/uL Hgb 12.4 L (12.5-18.0) g/dL Hct 37.7 L (42-50) % MCV 97.9 (78-100) fL MCH 32.2 H (26-32) pg MCHC 32.9 (32-36) g/dL RDW 13.9 (11.5-14.0) % Plt Count 78 L (150-450) x10^3/uL MPV 10.4 (7.5-11.0) fL Gran % 79.0 H (36.0-66.0) % Immature Gran % (Auto) 0.6 H (0.00-0.4) % Nucleat RBC Rel Count 0.0 (0.00-0.1) % Eos # (Auto) 0.08 (0-0.5) x10^3/uL Immature Gran # (Auto) 0.02 (0.00-0.03) x10^3u/L Absolute Lymphs (auto) 0.46 L (1.0-4.6) x10^3/uL Absolute Monos (auto) 0.19 (0.0-1.3) x10^3/uL Absolute Nucleated RBC 0.00 (0.00-0.01) x10^3u/L Lymphocytes % 12.7 L (24.0-44.0) % Monocytes % 5.2 (0.0-12.0) % Eosinophils % 2.2 (0.00-5.0) % Basophils % 0.3 (0.0-0.4) % Absolute Granulocytes 2.86 (1.4-6.9) x10^3/uL Basophils # 0.01 (0-0.4) x10^3/uL Sodium 135 L (137-145) mmol/L Potassium 5.0 (3.5-5.1) mmol/L Chloride 94 L (98-107) mmol/L Carbon Dioxide 25 (22-30) mmol/L Anion Gap 21.4 H (5-15) MEQ/L BUN 68 H (9-20) mg/dL Creatinine 16.36 H (0.66-1.25) mg/dL Estimated GFR 3.3 ML/MIN Glucose 94 (74-106) mg/dL Lactic Acid (0.4-2.0) Calcium 6.6 L (8.4-10.2) mg/dL Magnesium 2.0 (1.6-2.3) mg/dL Total Bilirubin 0.70 (0.2-1.3) mg/dL AST 29 (17-59) U/L ALT 21 (0-50) U/L Alkaline Phosphatase 85 (38-126) U/L Troponin I (0.000-0.034) ng/mL NT-Pro-B Natriuret Pep 73806 H (0-900) pg/mL Serum Total Protein 6.5 (6.3-8.2) g/dL Albumin 4.1 (3.5-5.0) g/dL Influenza Type A Ag (NEGATIVE) Influenza Type B Ag (NEGATIVE) RSV (PCR) (Negative) SARS-CoV-2 (PCR) (NEGATIVE) Slides for Path Review YES - Progress Progress: unchanged Air Movement: good Blood Culture(s) Obtained: No Antibiotics given: Yes - Departure Departure Disposition: Home Clinical Impression: COVID-19, Chronic renal failure Condition: Fair Critical Care Time: No Referrals: MIKAEL RICO [Primary Care Provider] - Follow up/PCP as directed Instructions: COVID-19 (DC) Prescriptions: Methylprednisolone Packet [Medrol Dosepack] 4 mg PO UD #1 packet Azithromycin 250 mg [Zithromax 250 MG TABLET] 250 mg PO ZPACK #6 tablet
== END 2022-06-11 15:22 | disposition home or self-care (01) ==
LOC: ED 12:39
DX: U07.1 COVID-19 (principal); I12.0 Hypertensive chronic kidney disease with stage 5 chronic kidney disease or end stage renal disease; N18.6 End stage renal disease; Z99.2 Dependence on renal dialysis; R06.02 Shortness of breath; R05.1 Acute cough; R51.9 Headache, unspecified; R50.9 Fever, unspecified; Z72.0 Tobacco use; Z79.52 Long term (current) use of systemic steroids
CPT/HCPCS: 0241U; 36000; 36415; 71045; 80053; 83605; 83735; 83880; 84484; 85025; 87040; 93005; 94640; 96374; 99284; J2930; A9270-GY

== ENCOUNTER 2022-06-18 06:22 | Emergency (ER) | payer OTHER ==
[2022-06-18] MEDS ORDERED: Sodium Chloride 0.9% 1000 ML 1,000 ML IV SCH (07:00)
[2022-06-18 07:15] LABS: Absolute Neutrophil Ct (ANC) 5.41 x10^3/uL (1.4-6.9); Basophil (Absolute #) 0.01 x10^3/uL (0-0.4); Eosinophil % 3.6 % (0.00-5.0); Eosinophil (Absolute #) 0.24 x10^3/uL (0-0.5); Hematocrit 34.4 % (42-50); Hemoglobin 11.4 g/dL (12.5-18.0); Lymphocyte (Absolute #) 0.73 x10^3/uL (1.0-4.6); Lymphocytes % 10.8 % (24.0-44.0); Mean Cell Volume 98.6 fL (78-100); Mean Corpuscular Hemoglobin 32.7 pg (26-32); Mean Corpuscular Hgb Concent. 33.1 g/dL (32-36); Mean Platelet Volume 10.1 fL (7.5-11.0); Monocyte (Absolute #) 0.33 x10^3/uL (0.0-1.3); Monocytes % 4.9 % (0.0-12.0); Platelet Count 137 x10^3/uL (150-450); Red Blood Count 3.49 x10^6/uL (4.1-5.6); Red Cell Distribution Width 13.1 % (11.5-14.0); White Blood Count 6.8 x10^3/uL (4.0-10.5)
[2022-06-18 07:30] LABS: AMYLASE 94 U/L (30-110); LIPASE 244 U/L (23-300)
[2022-06-18 07:32] LABS: ALBUMIN 3.7 g/dL (3.5-5.0); Calcium 6.2 mg/dL (8.4-10.2); Creatinine 1 13.16 mg/dL (0.66-1.25); EST GLOMERULAR FILTRATION RATE 4.2 ML/MIN; MAGNESIUM 1.8 mg/dL (1.6-2.3); Potassium 3.9 mmol/L (3.5-5.1); Total Protein 6.5 g/dL (6.3-8.2)
[2022-06-18] MEDS ORDERED: Sodium Chloride 0.9% 1000 ML 1,000 ML ONE (07:46)
--- NOTE | 2022-06-18 08:34 | ERPHSYRPT ---
- History of Present Illness Time Seen by Provider: 06/18/22 06:50 Source: patient, family Exam Limitations: no limitations Patient Subjective Stated Complaint: spouse states "I think his new medication is causing problems." Triage Nursing Assessment: pt presents to ed via wheelchair with , pt assist of 2 to bed, skin pale warm dry, pt states "I just feel weird. I haven't ate in months." pt is does dialysis at home M-F, pt has missed 3 days of dialysis d/t diarrhea, pt has had chronic diarrhea the past 9 years but has gotten increased diarrhea the past couple days and was prescribed lomotil Physician History: Patient is a dialysis patient on home hemodialysis Thursday through Thursday he has missed 3 days because of his diarrhea and feeling bad Lomotil was recently prescribed and the thinks that is affecting his thinking. He has been more confused than usual and has had nausea and increased diarrhea even with the Lomotil. Timing/Duration: day(s) (4) Severity: severe Modifying Factors: Improves With: nothing Associated Symptoms: nausea, other (Decreased mental status increased confusion) Allergies/Adverse Reactions: ciprofloxacin [From Cipro] Allergy (Severe, Verified 06/18/22 06:37) Difficulty Breathing ciprofloxacin HCl [From Cipro] Allergy (Severe, Verified 06/18/22 06:37) Difficulty Breathing etodolac [From Lodine] Allergy (Severe, Verified 06/18/22 06:37) Difficulty Breathing chlorhexidine Allergy (Verified 06/18/22 06:37) polystyrene sulfonate [From Kayexalate] Allergy (Verified 06/18/22 06:37) Home Medications: Famotidine 20 mg [Pepcid 20 MG] 20 mg PO DAILY 06/11/22 [History] Hx Tetanus, Diphtheria Vaccination/Date Given: Yes Hx Influenza Vaccination/Date Given: Yes Hx Pneumococcal Vaccination/Date Given: No Travel Risk - International Travel Have you traveled outside of the country in past 3 weeks: No - Coronavirus Screening Are you exhibiting any of the following symptoms?: No Close contact with a COVID-19 positive Pt in past 14-21 Days: No - Vaccine Status Have you recieved a Covid-19 vaccination: Yes [employer]: [employer] - Vaccination Dates Date of 2cond Vaccination (if applicable): unknown - Review of Systems Constitutional: No Fever, No Chills Eyes: No Symptoms Ears, Nose, & Throat: No Symptoms Respiratory: No Cough, No Dyspnea Cardiac: No Chest Pain, No Edema, No Syncope Abdominal/Gastrointestinal: Abdominal Pain, Nausea, Diarrhea, No Vomiting Genitourinary Symptoms: No Dysuria Musculoskeletal: No Back Pain, No Neck Pain Skin: No Rash Neurological: No Dizziness, No Focal Weakness, No Sensory Changes Psychological: No Symptoms Endocrine: No Symptoms All Other Systems: Reviewed and Negative - Past Medical History Pertinent Past Medical History: Yes Neurological History: No Pertinent History ENT History: No Pertinent History Cardiac History: Hypertension Respiratory History: Asthma Endocrine Medical History: No Pertinent History Musculoskeletal History: No Pertinent History GI Medical History: GERD History: Dialysis, Renal Disease Psycho-Social History: No Pertinent History Male Reproductive Disorders: No Pertinent History Other Medical History: LEFT AV FISTULA - Past Surgical History Past Surgical History: Yes Neuro Surgical History: No Pertinent History Cardiac: No Pertinent History Respiratory: No Pertinent History Gastrointestinal: No Pertinent History Genitourinary: Other Musculoskeletal: No Pertinent History Male Surgical History: No Pertinent History Other Surgical History: bladder scope - renal biopsy - fistula and then graft - permacath - Social History Smoking Status: Current every day smoker How long have you smoked: 33yrs Exposure to second hand smoke: Yes Drug Use: none Patient Lives Alone: No - Nursing Vital Signs Nursing Vital Signs: Initial Vital Signs Temperature 98.5 F 06/18/22 06:39 Pulse Rate 63 06/18/22 06:39 Respiratory Rate 18 06/18/22 06:39 Blood Pressure 182/90 06/18/22 06:39 O2 Sat by Pulse Oximetry 99 06/18/22 06:39 Pain Scale Pain Intensity 4 - Physical Exam General Appearance: mild distress, alert Eye Exam: PERRL/EOMI, eyes nml inspection Ears, Nose, Throat Exam: normal ENT inspection, TMs normal, pharynx normal, moist mucous membranes Neck Exam: normal inspection, non-tender, supple, full range of motion Respiratory Exam: normal breath sounds, lungs clear, No respiratory distress Cardiovascular Exam: regular rate/rhythm, normal heart sounds, normal peripheral pulses Gastrointestinal/Abdomen Exam: soft, normal bowel sounds, other (AV fistula left forearm), No tenderness, No mass Back Exam: normal inspection, normal range of motion, No CVA tenderness, No vertebral tenderness Extremity Exam: normal inspection, normal range of motion, pelvis stable Neurologic Exam: alert, oriented x 3, cooperative, normal mood/affect, nml cerebellar function, nml station & gait, sensation nml, No motor deficits Skin Exam: normal color, warm, dry, No rash Lymphatic Exam: inguinal node tender (L), No adenopathy SpO2: 97 O2 Delivery: Room Air - Course Nursing assessment & vital signs reviewed: Yes EKG Interpreted by Me: RATE (60), Sinus Rhythm, prolonged QT interval, Other (Prolonged PA interval) - Radiology Exams Chest X-ray Interpretation: Reviewed by me Ordered Tests: Active Orders 24 hr Category Date Time Status EKG-ER Only STAT Care 06/18/22 07:00 Active IV Insertion STAT Care 06/18/22 07:00 Active CHEST 1 VIEW (PORTABLE) Stat Exams 06/18/22 07:01 Completed AMYLASE Stat Lab 06/18/22 07:16 Completed BNP [NT PRO BNP] Stat Lab 06/18/22 07:00 Completed CBC W DIFF Stat Lab 06/18/22 07:00 Completed CMP Stat Lab 06/18/22 07:16 Completed FECAL OCCULT BLOOD - SCREENING Stat Lab 06/18/22 09:20 Ordered LIPASE Stat Lab 06/18/22 07:16 Completed Lactic Acid Stat Lab 06/18/22 07:16 Completed MAGNESIUM Stat Lab 06/18/22 07:16 Completed UA W/RFX CULTURE Stat Lab 06/18/22 Ordered Medication Summary Generic Name Dose Route Start Last Admin Trade Name Freq PRN Reason Stop Dose Admin Sodium Chloride 1,000 mls @ 100 mls/hr 06/18/22 07:00 06/18/22 07:49 Sodium Chloride 0.9% 1000 Ml IV 07/18/22 06:59 100 mls/hr .Q10H CANDICE Administration Lab/Rad Data: Laboratory Result Diagrams 06/18/22 07:00 06/18/22 07:16 Laboratory Results 06/18/22 06/18/22 06/18/22 Range/Units 08:35 07:16 07:16 WBC (4.0-10.5) x10^3/uL RBC (4.1-5.6) x10^6/uL Hgb (12.5-18.0) g/dL Hct (42-50) % MCV (78-100) fL MCH (26-32) pg MCHC (32-36) g/dL RDW (11.5-14.0) % Plt Count (150-450) x10^3/uL MPV (7.5-11.0) fL Gran % (36.0-66.0) % Immature Gran % (Auto) (0.00-0.4) % Nucleat RBC Rel Count (0.00-0.1) % Eos # (Auto) (0-0.5) x10^3/uL Immature Gran # (Auto) (0.00-0.03) x10^3u/L Absolute Lymphs (auto) (1.0-4.6) x10^3/uL Absolute Monos (auto) (0.0-1.3) x10^3/uL Absolute Nucleated RBC (0.00-0.01) x10^3u/L Lymphocytes % (24.0-44.0) % Monocytes % (0.0-12.0) % Eosinophils % (0.00-5.0) % Basophils % (0.0-0.4) % Absolute Granulocytes (1.4-6.9) x10^3/uL Basophils # (0-0.4) x10^3/uL Sodium (137-145) mmol/L Potassium (3.5-5.1) mmol/L Chloride (98-107) mmol/L Carbon Dioxide (22-30) mmol/L Anion Gap (5-15) MEQ/L BUN (9-20) mg/dL Creatinine (0.66-1.25) mg/dL Estimated GFR ML/MIN Glucose (74-106) mg/dL Lactic Acid (0.4-2.0) Calcium (8.4-10.2) mg/dL Magnesium (1.6-2.3) mg/dL Total Bilirubin (0.2-1.3) mg/dL AST (17-59) U/L ALT (0-50) U/L Alkaline Phosphatase (38-126) U/L Ammonia < 9 L (9-30) umol/L NT-Pro-B Natriuret Pep (0-900) pg/mL Serum Total Protein (6.3-8.2) g/dL Albumin (3.5-5.0) g/dL Amylase 94 (30-110) U/L Lipase 244 (23-300) U/L Influenza Type A Ag NEGATIVE (NEGATIVE) Influenza Type B Ag NEGATIVE (NEGATIVE) RSV (PCR) NEGATIVE (Negative) SARS-CoV-2 (PCR) POSITIVE A (NEGATIVE) 06/18/22 06/18/22 06/18/22 Range/Units 07:16 07:16 07:00 WBC (4.0-10.5) x10^3/uL RBC (4.1-5.6) x10^6/uL Hgb (12.5-18.0) g/dL Hct (42-50) % MCV (78-100) fL MCH (26-32) pg MCHC (32-36) g/dL RDW (11.5-14.0) % Plt Count (150-450) x10^3/uL MPV (7.5-11.0) fL Gran % (36.0-66.0) % Immature Gran % (Auto) (0.00-0.4) % Nucleat RBC Rel Count (0.00-0.1) % Eos # (Auto) (0-0.5) x10^3/uL Immature Gran # (Auto) (0.00-0.03) x10^3u/L Absolute Lymphs (auto) (1.0-4.6) x10^3/uL Absolute Monos (auto) (0.0-1.3) x10^3/uL Absolute Nucleated RBC (0.00-0.01) x10^3u/L Lymphocytes % (24.0-44.0) % Monocytes % (0.0-12.0) % Eosinophils % (0.00-5.0) % Basophils % (0.0-0.4) % Absolute Granulocytes (1.4-6.9) x10^3/uL Basophils # (0-0.4) x10^3/uL Sodium 137 (137-145) mmol/L Potassium 3.9 (3.5-5.1) mmol/L Chloride 93 L (98-107) mmol/L Carbon Dioxide 31 H (22-30) mmol/L Anion Gap 17.0 H (5-15) MEQ/L BUN 81 H (9-20) mg/dL Creatinine 13.16 H (0.66-1.25) mg/dL Estimated GFR 4.2 ML/MIN Glucose 86 (74-106) mg/dL Lactic Acid 1.1 (0.4-2.0) Calcium 6.2 L (8.4-10.2) mg/dL Magnesium 1.8 (1.6-2.3) mg/dL Total Bilirubin 1.00 (0.2-1.3) mg/dL AST 28 (17-59) U/L ALT 28 (0-50) U/L Alkaline Phosphatase 96 (38-126) U/L Ammonia (9-30) umol/L NT-Pro-B Natriuret Pep 53143 H (0-900) pg/mL Serum Total Protein 6.5 (6.3-8.2) g/dL Albumin 3.7 (3.5-5.0) g/dL Amylase (30-110) U/L Lipase (23-300) U/L Influenza Type A Ag (NEGATIVE) Influenza Type B Ag (NEGATIVE) RSV (PCR) (Negative) SARS-CoV-2 (PCR) (NEGATIVE) 06/18/22 Range/Units 07:00 WBC 6.8 (4.0-10.5) x10^3/uL RBC 3.49 L (4.1-5.6) x10^6/uL Hgb 11.4 L (12.5-18.0) g/dL Hct 34.4 L (42-50) % MCV 98.6 (78-100) fL MCH 32.7 H (26-32) pg MCHC 33.1 (32-36) g/dL RDW 13.1 (11.5-14.0) % Plt Count 137 L (150-450) x10^3/uL MPV 10.1 (7.5-11.0) fL Gran % 80.0 H (36.0-66.0) % Immature Gran % (Auto) 0.6 H (0.00-0.4) % Nucleat RBC Rel Count 0.0 (0.00-0.1) % Eos # (Auto) 0.24 (0-0.5) x10^3/uL Immature Gran # (Auto) 0.04 H (0.00-0.03) x10^3u/L Absolute Lymphs (auto) 0.73 L (1.0-4.6) x10^3/uL Absolute Monos (auto) 0.33 (0.0-1.3) x10^3/uL Absolute Nucleated RBC 0.00 (0.00-0.01) x10^3u/L Lymphocytes % 10.8 L (24.0-44.0) % Monocytes % 4.9 (0.0-12.0) % Eosinophils % 3.6 (0.00-5.0) % Basophils % 0.1 (0.0-0.4) % Absolute Granulocytes 5.41 (1.4-6.9) x10^3/uL Basophils # 0.01 (0-0.4) x10^3/uL Sodium (137-145) mmol/L Potassium (3.5-5.1) mmol/L Chloride (98-107) mmol/L Carbon Dioxide (22-30) mmol/L Anion Gap (5-15) MEQ/L BUN (9-20) mg/dL Creatinine (0.66-1.25) mg/dL Estimated GFR ML/MIN Glucose (74-106) mg/dL Lactic Acid (0.4-2.0) Calcium (8.4-10.2) mg/dL Magnesium (1.6-2.3) mg/dL Total Bilirubin (0.2-1.3) mg/dL AST (17-59) U/L ALT (0-50) U/L Alkaline Phosphatase (38-126) U/L Ammonia (9-30) umol/L NT-Pro-B Natriuret Pep (0-900) pg/mL Serum Total Protein (6.3-8.2) g/dL Albumin (3.5-5.0) g/dL Amylase (30-110) U/L Lipase (23-300) U/L Influenza Type A Ag (NEGATIVE) Influenza Type B Ag (NEGATIVE) RSV (PCR) (Negative) SARS-CoV-2 (PCR) (NEGATIVE) - Progress Progress: unchanged Progress Note: 06/18/22 09:45 Had a long telephone discussion with Dr. 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 She informs me that he has missed multiple GI appointments he refuses a colonoscopy. She is concerned that he may well have a serious problem including perhaps a malignancy she reviewed with me his lab work and inform me that trying Questran would be good. After discussion I also decided to administer Flagyl for [address].: Other (Dr. Katerine Fall) Will see patient in: office - Departure Departure Disposition: Home Clinical Impression: Chronic diarrhea, Renal failure Condition: Stable Critical Care Time: No Referrals: MIKAEL RICO [Primary Care Provider] - Follow up/PCP as directed Instructions: Diarrhea and Travelers' Diarrhea, Adult (DC) Prescriptions: Metronidazole 500 mg [Flagyl 500 MG] 500 mg PO TID #21 tablet Cholestyramine Light 4 gm [QUESTRAN Light 4 GM Packet] 4 gm PO AC 30 Days #90 packet
--- NOTE | 2022-06-18 09:07 | XRAY ---
Indication: Cough and congestion. Post Covid 19. Comparison: June 11, 2022 Portable chest remains inflated and clear again with a few left lung calcified granulomas. Heart not enlarged. No new/acute findings.
[2022-06-18 09:16] LABS: INFLUENZA A NEGATIVE (NEGATIVE); INFLUENZA B NEGATIVE (NEGATIVE); RESPIRATORY SYNCTIAL VIRUS NEGATIVE (Negative)
[2022-06-18 09:17] LABS: SARS-CoV-2 Xpert Express POSITIVE (NEGATIVE)
[2022-06-18 10:03] VITALS: BP 170/84; PULSE 64; O2SAT 94
[2022-06-18 11:25] LABS: 027 TOX PROD PRESUMPTIVE NEGATIVE (NEGATIVE); TOXIGENIC C. DIFF ORG NEGATIVE (NEGATIVE)
== END 2022-06-18 10:03 | disposition home or self-care (01) ==
LOC: ED 06:22
DX: K52.9 Noninfective gastroenteritis and colitis, unspecified (principal); I12.0 Hypertensive chronic kidney disease with stage 5 chronic kidney disease or end stage renal disease; N18.6 End stage renal disease; Z99.2 Dependence on renal dialysis; R41.0 Disorientation, unspecified; R11.0 Nausea; Z79.899 Other long term (current) drug therapy; Z72.0 Tobacco use
CPT/HCPCS: 0241U; 36000; 36415; 71045; 80053; 82140; 82150; 82274; 83605; 83690; 83735; 83880; 85025; 87045; 87046; 87328; 87329; 87493; 93005; 99284; G0328

== ENCOUNTER 2022-08-17 14:31 | Emergency (ER) | payer OTHER ==
[2022-08-17] MEDS ORDERED: solu-MEDROL 125 MG, Sterile H2O 10 ml 2 ML IV ONE ×2 (14:46)
[2022-08-17] MEDS ORDERED: DUONEB 0.5-3 MG/3 ml Neb IH ONE ×2 (14:46→14:56)
[2022-08-17] MEDS ORDERED: Pepcid 20 MG VIAL IV ONE ×2 (14:46→15:02)
[2022-08-17] MEDS ORDERED: BENADRYL 50 MG/ML IV ONE (14:46)
--- NOTE | 2022-08-17 14:59 | ERPHSYRPT ---
- History of Present Illness Time Seen by Provider: 08/17/22 14:56 Source: patient, family Exam Limitations: no limitations Patient Subjective Stated Complaint: Shortness of breath that started last night. Patient states he was started on a new medication (keflex) yesterday evening. Triage Nursing Assessment: Patient brought back to ER in a W/C. Patient is hyperventilating. He is alert and oriented; hard of hearing. Fistula noted to Left arm. No edema noted. 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 He denies any skin redness chest pain nausea vomiting. As his shortness of breath got worse he came to the emergency room. Patient is alert awake oriented to time place and person in the emergency room and able to answer all the questions. Timing/Duration: today Severity of Dyspnea-Max: moderate Severity of Dyspnea-Current: moderate Possible Cause: no prior episodes Associated Symptoms: wheezing Allergies/Adverse Reactions: ciprofloxacin [From Cipro] Allergy (Severe, Verified 08/17/22 14:35) Difficulty Breathing ciprofloxacin HCl [From Cipro] Allergy (Severe, Verified 08/17/22 14:35) Difficulty Breathing etodolac [From Lodine] Allergy (Severe, Verified 08/17/22 14:35) Difficulty Breathing chlorhexidine Allergy (Verified 08/17/22 14:35) polystyrene sulfonate [From Kayexalate] Allergy (Verified 08/17/22 14:35) Home Medications: Famotidine 20 mg [Pepcid 20 MG] 20 mg PO DAILY 06/11/22 [History] Hx Tetanus, Diphtheria Vaccination/Date Given: Yes Hx Influenza Vaccination/Date Given: Yes Hx Pneumococcal Vaccination/Date Given: No Immunizations Up to Date: Yes Travel Risk - International Travel Have you traveled outside of the country in past 3 weeks: No - Coronavirus Screening Are you exhibiting any of the following symptoms?: Yes Symptoms: Shortness of Breath Close contact with a COVID-19 positive Pt in past 14-21 Days: No - Vaccine Status Have you recieved a Covid-19 vaccination: Yes 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[employer] - Vaccination Dates Date of 2cond Vaccination (if applicable): unknown - Review of Systems Constitutional: No Symptoms Eyes: No Symptoms Ears, Nose, & Throat: No Symptoms Respiratory: Cough, Dyspnea on Exertion ([place]), Wheezing, No Cyanosis Cardiac: No Symptoms Abdominal/Gastrointestinal: No Symptoms Genitourinary Symptoms: No Symptoms Musculoskeletal: No Symptoms Skin: No Symptoms Neurological: No Symptoms Psychological: No Symptoms - Past Medical History Pertinent Past Medical History: Yes Neurological History: No Pertinent History ENT History: No Pertinent History Cardiac History: Hypertension Respiratory History: Asthma Endocrine Medical History: No Pertinent History Musculoskeletal History: No Pertinent History GI Medical History: GERD History: Dialysis, Renal Disease Psycho-Social History: No Pertinent History Male Reproductive Disorders: No Pertinent History Other Medical History: LEFT AV FISTULA - Past Surgical History Past Surgical History: Yes Neuro Surgical History: No Pertinent History Cardiac: No Pertinent History Respiratory: No Pertinent History Gastrointestinal: No Pertinent History Genitourinary: Other Musculoskeletal: No Pertinent History Male Surgical History: No Pertinent History Other Surgical History: bladder scope - renal biopsy - fistula and then graft - permacath placement and removal - Social History Smoking Status: Current every day smoker How long have you smoked: 33yrs Exposure to second hand smoke: Yes Drug Use: none Patient Lives Alone: No - Nursing Vital Signs Nursing Vital Signs: Initial Vital Signs Temperature 97.7 F 08/17/22 14:36 Pulse Rate 85 08/17/22 14:36 Respiratory Rate 20 08/17/22 14:36 Blood Pressure 107/83 08/17/22 14:36 Pain Scale Pain Intensity 0 - Physical Exam General Appearance: no apparent distress, alert Eye Exam: PERRL/EOMI Neck Exam: normal inspection, supple Respiratory Exam: respiratory distress, diminished breath sounds, prolonged expirations, wheezing Cardiovascular/Chest Exam: normal heart sounds, regular rate/rhythm Abdominal/Gastrointestinal Exam: soft, No tenderness, No distention, No mass Extremity Exam: non-tender, normal range of motion, normal inspection, no calf tenderness, no pedal edema Neurologic Exam: alert, oriented x 3, cooperative, 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, sensation nml, No motor deficits Skin Exam: normal color, warm, No dry SpO2 Interpretation: normal SpO2: 99 O2 Delivery: Room Air - Course Nursing assessment & vital signs reviewed: Yes - Radiology Exams Chest X-ray Interpretation: Reviewed by me, Negative, No Pneumonia, No Pneumothorax Ordered Tests: Active Orders 24 hr Category Date Time Status EKG-ER Only STAT Care 08/17/22 14:46 Active Oxygen-ED Only Nasal Cannula 2 lpm Care 08/17/22 14:46 Active CHEST 1 VIEW (PORTABLE) Stat Exams 08/17/22 14:59 Taken CBC W DIFF Stat Lab 08/17/22 15:06 Completed CMP Stat Lab 08/17/22 15:06 Completed MAGNESIUM Stat Lab 08/17/22 15:06 Completed NT PRO BNP Stat Lab 08/17/22 15:06 Completed TROPONIN Q4H Lab 08/17/22 15:06 Received TROPONIN Q4H Lab 08/17/22 19:00 Ordered TROPONIN Q4H Lab 08/17/22 23:00 Ordered Respiratory Therapy Assessment DAILY RT 08/17/22 14:58 Active Medication Summary Discontinued Medications Generic Name Dose Route Start Last Admin Trade Name Freq PRN Reason Stop Dose Admin Albuterol/Ipratropium 3 ml 08/17/22 14:46 08/17/22 14:57 Ipratropium/Albuterol Sulfate 3 Ml Ampul.Neb IH 08/17/22 14:47 3 ml STAT ONE Administration Albuterol/Ipratropium Confirm 08/17/22 14:56 Ipratropium/Albuterol Sulfate 3 Ml Ampul.Neb Administered 08/17/22 14:57 Dose 3 ml IH .STK-MED ONE Methylprednisolone Sodium 0 mg 08/17/22 14:46 08/17/22 15:07 Succinate 125 mg/ Sterile IV 08/17/22 14:47 125 mg Water 2 ml STAT ONE Administration Diphenhydramine HCl 25 mg 08/17/22 14:46 08/17/22 15:04 Diphenhydramine Hcl 50 Mg/Ml Vial IV 08/17/22 14:47 25 mg STAT ONE Administration Diphenhydramine HCl Confirm 08/17/22 15:02 Diphenhydramine Hcl 50 Mg/Ml Vial Administered 08/17/22 15:03 Dose 50 mg .ROUTE .STK-MED ONE Famotidine 20 mg 08/17/22 14:46 08/17/22 15:06 Famotidine 20 Mg/1 Vial IV 08/17/22 14:47 Not Given STAT ONE Famotidine Confirm 08/17/22 15:02 Famotidine 20 Mg/1 Vial Administered 08/17/22 15:03 Dose 20 mg IV .STK-MED ONE Methylprednisolone Sodium Succinate Confirm 08/17/22 15:02 Methylprednis Sod Succ 125 Mg/2 Ml Vial Administered 08/17/22 15:03 Dose 125 mg .ROUTE .STK-MED ONE Sterile Water Confirm 08/17/22 15:02 Water For Injection,Sterile 10 Ml Vial Administered 08/17/22 15:03 Dose 10 ml IJ .STK-MED ONE Lab/Rad Data: Laboratory Result Diagrams 08/17/22 15:06 08/17/22 15:06 Laboratory Results 08/17/22 08/17/22 Range/Units 15:06 15:06 WBC 5.6 (4.0-10.5) x10^3/uL RBC 3.37 L (4.1-5.6) x10^6/uL Hgb 11.8 L (12.5-18.0) g/dL Hct 34.8 L (42-50) % MCV 103.3 H (78-100) fL MCH 35.0 H (26-32) pg MCHC 33.9 (32-36) g/dL RDW 15.1 H (11.5-14.0) % Plt Count 113 L (150-450) x10^3/uL MPV 9.8 (7.5-11.0) fL Gran % 73.4 H (36.0-66.0) % Immature Gran % (Auto) 0.2 (0.00-0.4) % Nucleat RBC Rel Count 0.0 (0.00-0.1) % Eos # (Auto) 0.23 (0-0.5) x10^3/uL Immature Gran # (Auto) 0.01 (0.00-0.03) x10^3u/L Absolute Lymphs (auto) 0.87 L (1.0-4.6) x10^3/uL Absolute Monos (auto) 0.33 (0.0-1.3) x10^3/uL Absolute Nucleated RBC 0.00 (0.00-0.01) x10^3u/L Lymphocytes % 15.5 L (24.0-44.0) % Monocytes % 5.9 (0.0-12.0) % Eosinophils % 4.1 (0.00-5.0) % Basophils % 0.9 (0.0-0.4) % Absolute Granulocytes 4.11 (1.4-6.9) x10^3/uL Basophils # 0.05 (0-0.4) x10^3/uL Sodium 133 L (137-145) mmol/L Potassium 5.9 H (3.5-5.1) mmol/L Chloride 90 L (98-107) mmol/L Carbon Dioxide 23 (22-30) mmol/L Anion Gap 25.2 H (5-15) MEQ/L BUN 66 H (9-20) mg/dL Creatinine 14.53 H (0.66-1.25) mg/dL Estimated GFR 3.8 ML/MIN Glucose 102 (74-106) mg/dL Calcium 8.8 (8.4-10.2) mg/dL Magnesium 2.0 (1.6-2.3) mg/dL Total Bilirubin 1.00 (0.2-1.3) mg/dL AST 19 (17-59) U/L ALT 13 (0-50) U/L Alkaline Phosphatase 83 (38-126) U/L NT-Pro-B Natriuret Pep 3590 H (0-900) pg/mL Serum Total Protein 8.3 H (6.3-8.2) g/dL Albumin 5.2 H (3.5-5.0) g/dL - Progress Progress: improved, re-examined Air Movement: good Blood Culture(s) Obtained: No Antibiotics given: No Counseled pt/family regarding: lab results, diagnosis, need for follow-up, rad results Medical Desision Making - Independent Historian Additional History obtained from: Spouse - Discussion of managment Agreed on:: Treatment plan, need for follow-up - Diagnostic Testing Diagnostic Testing: Diagnostic tests were ordered,analyzed, and reviewed by me and used in my medical decision making for this patient. Radiologic studies (if ordered) were read by me initially then discussed with the radiologist . - Risk of complications The pt has a mod risk of morbidity or mortality based on: Need for prescription drug management - Departure Departure Disposition: Home Clinical Impression: Allergic reaction caused by a drug Qualifiers: Encounter type: initial encounter Qualified Code(s): T78.40XA - Allergy, unspecified, initial encounter Cephalexin adverse reaction Qualifiers: Encounter type: initial encounter Qualified Code(s): T36.1X5A - Adverse effect of cephalosporins and other beta-lactam antibiotics, initial encounter Acute on chronic renal failure Qualifiers: Acute renal failure type: unspecified Chronic kidney disease stage: on chronic dialysis Qualified Code(s): N17.9 - Acute kidney failure, unspecified; N18.9 - Chronic kidney disease, unspecified; Z99.2 - Dependence on renal dialysis Condition: Stable Critical Care Time: Yes Critical Care Time(excluding separately billable procedures): Critical 30-74 mins Referrals: MIKAEL RICO [Primary Care Provider] - Follow up/PCP as directed Instructions: Allergy to Penicillins, Adverse Drug Reactions, Adult (DC), Drug Allergy Additional Instructions: Discharge/Care Plan EVA URBANO was seen on 08/17/22 in the Emergency Room. The patient was counseled regarding Diagnosis,Lab results, Imaging studies, need for follow up and when to return to the Emergency Room. Prescriptions given: Discharge Note I have spoken with the patient and/or caregivers. I have explained the patient's condition, diagnosis and treatment plan based on the information available to me at this time. I have answered the patient's and/or caregiver's questions and addressed any concerns. The patient and/or caregivers have as good understanding of the patient's diagnosis, condition and treatment plan as can be expected at this point. The vital signs have been stable. The patient's condition is stable and appropriate for discharge from the emergency department. The patient will pursue further outpatient evaluation with the primary care physician or other designated or consulting physician as outlined in the discharge instructions. The patient and/or caregivers are agreeable to this plan of care and follow-up instructions have been explained in detail. The patient and/or caregivers have received these instruction. The patient/and or caregivers are aware that any significant change in condition or worsening of symptoms should prompt an immediate return to this or the closest emergency department or call 911. EVA URBANO was seen on 08/17/22 n the Emergency Room. At that time you were treated for an emergent condition, during your visit Laboratory, Radiology and/or other procedures may have been ordered. It is very important that you follow-up with your Primary Care Physician MIKAEL RICO within the next 24-48 hours to review your Emergency Room visit and the final results of testing that was ordered. Some test results such as Urine Cultures, Blood Cultures, and other cultures if ordered will not be finalized for 24-48 hours. If you do not have a Primary Care Provider please call the medical records department at [phone] to obtain a copy of your results or you may sign into our patient portal to obtain these results by visiting us @ [email or web address] and completing the following steps: 1. Click on the Patient Portal link 2. Click the Patient Self Enrollment Link to complete the enrollment form and entering your 3. Once the enrollment form is completed you will receive an email with a temporary ID and password at the email address you provided. 4. Next choose a user name and password. Your user name must be at least 4 characters long and your password must be at least 4 characters long. 5. Choose a security question from the list and provide your answer to the que stion. If you already have signed into the Health Portal you may access your Health Ca re Information 26/01 by the following steps: 1. Login to our website @ [email or web address] 2. Enter your original user name and password. FAQS The [facility] Portal is an online tool that contains your Lab Results, Radiology Reports, Visit History, Discharge Instructions and Health Summary Lab and Radiology Results will not be available for 72 hours on the portal. The Portal is a secure site, passwords are encryted and URLs are re-written so they cannot be copied and pasted. You and authorized family members are the only ones who can access your Portal. Also there is a timeout feature that protects your information if you leave the Portal page open. If you have technical difficulty please use the Contact Us link on the page this will allow you to submit any questions you have regarding the Portal or you may contact the Medical Record Department at [phone] ext [phone].
[2022-08-17] MEDS ORDERED: Sterile H2O 10 ml IJ ONE (15:02)
[2022-08-17] MEDS ORDERED: solu-MEDROL ONE (15:02)
[2022-08-17] MEDS ORDERED: BENADRYL 50 MG/ML ONE (15:02)
[2022-08-17 15:05] LABS: Absolute Neutrophil Ct (ANC) 4.11 x10^3/uL (1.4-6.9); BASOPHIL % 0.9 % (0.0-0.4); Basophil (Absolute #) 0.05 x10^3/uL (0-0.4); Eosinophil % 4.1 % (0.00-5.0); Eosinophil (Absolute #) 0.23 x10^3/uL (0-0.5); Hematocrit 34.8 % (42-50); Hemoglobin 11.8 g/dL (12.5-18.0); IMMATURE GRAN # 0.01 x10^3u/L (0.00-0.03); IMMATURE GRAN % 0.2 % (0.00-0.4); Lymphocyte (Absolute #) 0.87 x10^3/uL (1.0-4.6); Lymphocytes % 15.5 % (24.0-44.0); Mean Cell Volume 103.3 fL (78-100); Mean Corpuscular Hgb Concent. 33.9 g/dL (32-36); Mean Platelet Volume 9.8 fL (7.5-11.0); Monocyte (Absolute #) 0.33 x10^3/uL (0.0-1.3); Monocytes % 5.9 % (0.0-12.0); Neutrophil % 73.4 % (36.0-66.0); Platelet Count 113 x10^3/uL (150-450); Red Blood Count 3.37 x10^6/uL (4.1-5.6); Red Cell Distribution Width 15.1 % (11.5-14.0); White Blood Count 5.6 x10^3/uL (4.0-10.5)
[2022-08-17 15:27] LABS: Creatinine 1 14.53 mg/dL (0.66-1.25); EST GLOMERULAR FILTRATION RATE 3.8 ML/MIN
[2022-08-17 15:29] LABS: ALBUMIN 5.2 g/dL (3.5-5.0); ANION GAP 25.2 MEQ/L (5-15); Calcium 8.8 mg/dL (8.4-10.2); Potassium 5.9 mmol/L (3.5-5.1); Total Protein 8.3 g/dL (6.3-8.2)
[2022-08-17 16:17] VITALS: BP 122/82; PULSE 78; O2SAT 91
--- NOTE | 2022-08-17 19:00 | XRAY ---
Indication: Short of breath. Comparison: June 18, 2022 Portable chest remains inflated and clear. Heart not enlarged. Bony thorax intact with again old right rib fractures. Again distal left subclavian artery stent with midsection kinked. Impression: Continued nonacute chest with chronic features.
== END 2022-08-17 16:21 | disposition home or self-care (01) ==
LOC: ED 14:31
DX: N17.9 Acute kidney failure, unspecified (principal); T36.1X5A Adverse effect of cephalosporins and other beta-lactam antibiotics, initial encounter; I12.0 Hypertensive chronic kidney disease with stage 5 chronic kidney disease or end stage renal disease; N18.6 End stage renal disease; Z99.2 Dependence on renal dialysis; Z72.0 Tobacco use; R06.02 Shortness of breath
CPT/HCPCS: 36000; 36415; 71045; 80053; 83735; 83880; 84484; 85025; 93005; 94640; 96374; 96375; 99284; 99291; J1200; J2930; A9270-GY

== ENCOUNTER 2023-02-14 12:09 | Emergency (ER) | payer OTHER ==
[2023-02-14 12:32] VITALS: RESP 18; TEMP 97.5
--- NOTE | 2023-02-14 12:51 | ERPHSYRPT ---
- History of Present Illness Time Seen by Provider: 02/14/23 12:52 Source: patient Exam Limitations: no limitations Patient Subjective Stated Complaint: C/O LUE pain. States pain is not located in surgical incision/suture area but instead pain is proximal to surgical area. Patient reports he had surgery at [facility] on 02/09/23 for an angioplasty related to blockages in LUE. Triage Nursing Assessment: Patient ambulated back to ER. He is alert and oriented; hard of hearing. Dressing noted to LUE. Dressings currently C/D/I. Dressings removed to assess surgical incision area. Patient has intact sutures to 3 different locations on LUE. Surgical areas are well approximated. Some bruising that is started to fade is present. No drainage. Area is warm to touch; not any hotter than rest of arm. Induration is noted proximal to surgical area where patient indicates pain is located. Physician History: Patient is a 52-year-old male presents to our ED for evaluation of pain to his proximal left shoulder. Patient states he had an angioplasty done on February 09. Patient believes cardiac stents were placed. No intra or postprocedural complications. Patient was prescribed azithromycin post procedure. Patient has yet to chart picker his antibiotics. Patient's left shoulder pain started on approximately 3 days after the procedure. The pain has been progressive. Pain described as an ache that is localized. No radiation. The area is red tender swollen and warm. Patient advises that he has a left upper extremity fistula. Patient is a hemodialysis patient. Patient receives home hemodialysis. 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 Patient's pain is rated 8 out of 10 currently. Patient declined pain medication. Patient states pain is minimal at rest but occurs more so when he moves his arm. No fever no nausea vomiting or diaphoresis. Symptoms are moderate in intensity. at bedside. They voiced no other complaints or concerns at this time. Portions of this note were created with voice recognition technology. There may be grammatical, spelling, punctuation or sound alike errors Timing/Duration: day(s) (2 days) Severity: moderate Modifying Factors: Improves With: nothing Associated Symptoms: No chest pain (No associated chest pain or shortness of breath. No nausea vomiting or diaphoresis.), No fever Allergies/Adverse Reactions: ciprofloxacin [From Cipro] Allergy (Severe, Verified 02/14/23 12:13) Difficulty Breathing ciprofloxacin HCl [From Cipro] Allergy (Severe, Verified 02/14/23 12:13) Difficulty Breathing etodolac [From Lodine] Allergy (Severe, Verified 02/14/23 12:13) Difficulty Breathing cephalexin Allergy (Verified 02/14/23 12:13) Anaphylactic Reaction chlorhexidine Allergy (Verified 02/14/23 12:13) polystyrene sulfonate [From Kayexalate] Allergy (Verified 02/14/23 12:13) Home Medications: Albuterol Sulfate [Albuterol Sulfate Hfa] 1 puff PO Q4-6HPRN PRN 02/14/23 [History] Heparin 1000 unit/ml 10ml vial [Heparin 1000 units/ml (10 Ml vial)] See Rx Instructions .ROUTE .COMPLEX 02/14/23 [History] Lidocaine/Prilocaine [Lidocaine-Prilocaine Cream] 1 appful TOP WEEKLY 02/14/23 [History] PANTOPRAZOLE 40 mg Tablet [Protonix 40MG Tablet] 1 tab PO DAILY 02/14/23 [History] Hx Tetanus, Diphtheria Vaccination/Date Given: Yes Hx Influenza Vaccination/Date Given: Yes Hx Pneumococcal Vaccination/Date Given: No Immunizations Up to Date: Yes Travel Risk - International Travel Have you traveled outside of the country in past 3 weeks: No - Coronavirus Screening Are you exhibiting any of the following symptoms?: No Close contact with a COVID-19 positive Pt in past 14-21 Days: No - Vaccine Status Have you recieved a Covid-19 vaccination: Yes 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: [employer] - Vaccination Dates Date of 2cond Vaccination (if applicable): unknown - Review of Systems Constitutional: No Symptoms, No Fever, No Chills Eyes: No Symptoms Ears, Nose, & Throat: No Symptoms Respiratory: No Symptoms, No Cough, No Dyspnea Cardiac: No Symptoms, No Chest Pain, No Edema, No Syncope Abdominal/Gastrointestinal: No Symptoms, No Abdominal Pain, No Nausea, No Vomiting, No Diarrhea Genitourinary Symptoms: No Symptoms, No Dysuria Musculoskeletal: No Symptoms, No Back Pain, No Neck Pain Skin: No Symptoms, No Rash Neurological: No Symptoms, No Dizziness, No Focal Weakness, No Sensory Changes Psychological: No Symptoms Endocrine: No Symptoms Hematologic/Lymphatic: No Symptoms Immunological/Allergic: No Symptoms All Other Systems: Reviewed and Negative - Past Medical History Pertinent Past Medical History: Yes Neurological History: No Pertinent History ENT History: No Pertinent History Cardiac History: Hypertension Respiratory History: Asthma Endocrine Medical History: No Pertinent History Musculoskeletal History: No Pertinent History GI Medical History: GERD History: Dialysis, Renal Disease Psycho-Social History: No Pertinent History Male Reproductive Disorders: No Pertinent History Other Medical History: LEFT AV FISTULA - Past Surgical History Past Surgical History: Yes Neuro Surgical History: No Pertinent History Cardiac: No Pertinent History Respiratory: No Pertinent History Gastrointestinal: No Pertinent History Genitourinary: Other Musculoskeletal: No Pertinent History Male Surgical History: No Pertinent History Other Surgical History: bladder scope - renal biopsy - fistula and then graft - permacath placement and removal, LUE angioplasty - Social History Smoking Status: Current every day smoker How long have you smoked: 33yrs Exposure to second hand smoke: Yes Drug Use: none Patient Lives Alone: No - Nursing Vital Signs Nursing Vital Signs: Initial Vital Signs Blood Pressure 95/55 02/14/23 12:13 O2 Sat by Pulse Oximetry 98 02/14/23 12:13 Pain Scale Pain Intensity 9 - Physical Exam General Appearance: no apparent distress, alert Eye Exam: PERRL/EOMI, eyes nml inspection Ears, Nose, Throat Exam: normal ENT inspection, TMs normal, pharynx normal, moist mucous membranes Neck Exam: normal inspection, non-tender, supple, full range of motion Respiratory Exam: normal breath sounds, lungs clear, airway intact, No respiratory distress Cardiovascular Exam: regular rate/rhythm, normal heart sounds, normal peripheral pulses Gastrointestinal/Abdomen Exam: soft, normal bowel sounds, No tenderness, No mass Back Exam: normal inspection, normal range of motion, No CVA tenderness, No vertebral tenderness Extremity Exam: normal inspection, normal range of motion, pelvis stable, other (Left upper extremity dialysis fistula thrill observed. The extremity is neurovascular intact distally. Compartments are soft. Cap refill less than 2 seconds.) Neurologic Exam: alert, oriented x 3, cooperative, normal mood/affect, nml cerebellar function, nml station & gait, sensation nml, No motor deficits Skin Exam: normal color, warm, dry, No rash Lymphatic Exam: No adenopathy SpO2 Interpretation: normal SpO2: 100 O2 Delivery: Room Air - Course Nursing assessment & vital signs reviewed: Yes - Radiology Ultrasound Exam Venous Upper Extremity Ultrasound: discussed w/radiologist (Extensive left upper extremity DVT per verbal report from machine sizer.) Ordered Tests: Active Orders 24 hr Category Date Time Status Pulse Oximetry (ED) STAT Care 02/14/23 12:46 Active VENOUS UNILAT/LIMITED EXTREMIT [US] Stat Exams 02/14/23 12:45 Taken BLOOD CULTURE Stat Lab 02/14/23 13:05 Received CBC W DIFF Stat Lab 02/14/23 12:58 Completed CMP Stat Lab 02/14/23 12:58 Completed ESR [Erythrocyte Sedimentation Rate] Stat Lab 02/14/23 12:58 Completed Lactic Acid Stat Lab 02/14/23 13:35 Completed Medication Summary Discontinued Medications Generic Name Dose Route Start Last Admin Trade Name Freq PRN Reason Stop Dose Admin Oxycodone/Acetaminophen 1 tab 02/14/23 15:33 02/14/23 15:34 Oxycodone Hcl/Apap 5 Mg/325 Mg Tablet PO 02/14/23 15:34 1 tab STAT STA Administration Oxycodone/Acetaminophen Confirm 02/14/23 15:33 Oxycodone Hcl/Apap 5 Mg/325 Mg Tablet Administered 02/14/23 15:34 Dose 1 tab .ROUTE .[employer] Filter-MED ONE Lab/Rad Data: Laboratory Result Diagrams 02/14/23 12:58 02/14/23 12:58 Laboratory Results 02/14/23 02/14/23 02/14/23 Range/Units 13:35 12:58 12:58 WBC (4.0-10.5) x10^3/uL RBC (4.1-5.6) x10^6/uL Hgb (12.5-18.0) g/dL Hct (42-50) % MCV (78-100) fL MCH (26-32) pg MCHC (32-36) g/dL RDW (11.5-14.0) % Plt Count (150-450) x10^3/uL MPV (7.5-11.0) fL Gran % (36.0-66.0) % Immature Gran % (Auto) (0.00-0.4) % Nucleat RBC Rel Count (0.00-0.1) % Eos # (Auto) (0-0.5) x10^3/uL Immature Gran # (Auto) (0.00-0.03) x10^3u/L Absolute Lymphs (auto) (1.0-4.6) x10^3/uL Absolute Monos (auto) (0.0-1.3) x10^3/uL Absolute Nucleated RBC (0.00-0.01) x10^3u/L Lymphocytes % (24.0-44.0) % Monocytes % (0.0-12.0) % Eosinophils % (0.00-5.0) % Basophils % (0.0-0.4) % Absolute Granulocytes (1.4-6.9) x10^3/uL Basophils # (0-0.4) x10^3/uL ESR 31 H (0-15) mm/hr Sodium 133 L (137-145) mmol/L Potassium 5.7 H (3.5-5.1) mmol/L Chloride 88 L (98-107) mmol/L Carbon Dioxide 23 (22-30) mmol/L Anion Gap 27.5 H (5-15) MEQ/L BUN 74 H (9-20) mg/dL Creatinine 17.22 H (0.66-1.25) mg/dL Estimated GFR 3.1 ML/MIN Glucose 105 (74-106) mg/dL Lactic Acid 1.2 (0.4-2.0) Calcium 7.9 L (8.4-10.2) mg/dL Total Bilirubin 0.90 (0.2-1.3) mg/dL AST 23 (17-59) U/L ALT 17 (0-50) U/L Alkaline Phosphatase 109 (38-126) U/L Serum Total Protein 7.4 (6.3-8.2) g/dL Albumin 4.5 (3.5-5.0) g/dL Slides for Path Review 02/14/23 Range/Units 12:58 WBC 6.5 (4.0-10.5) x10^3/uL RBC 3.88 L (4.1-5.6) x10^6/uL Hgb 12.8 (12.5-18.0) g/dL Hct 37.0 L (42-50) % MCV 95.4 (78-100) fL MCH 33.0 H (26-32) pg MCHC 34.6 (32-36) g/dL RDW 12.5 (11.5-14.0) % Plt Count 115 L (150-450) x10^3/uL MPV 10.0 (7.5-11.0) fL Gran % 80.3 H (36.0-66.0) % Immature Gran % (Auto) 0.5 H (0.00-0.4) % Nucleat RBC Rel Count 0.0 (0.00-0.1) % Eos # (Auto) 0.10 (0-0.5) x10^3/uL Immature Gran # (Auto) 0.03 (0.00-0.03) x10^3u/L Absolute Lymphs (auto) 0.66 L (1.0-4.6) x10^3/uL Absolute Monos (auto) 0.46 (0.0-1.3) x10^3/uL Absolute Nucleated RBC 0.00 (0.00-0.01) x10^3u/L Lymphocytes % 10.1 L (24.0-44.0) % Monocytes % 7.0 (0.0-12.0) % Eosinophils % 1.5 (0.00-5.0) % Basophils % 0.6 (0.0-0.4) % Absolute Granulocytes 5.24 (1.4-6.9) x10^3/uL Basophils # 0.04 (0-0.4) x10^3/uL ESR (0-15) mm/hr Sodium (137-145) mmol/L Potassium (3.5-5.1) mmol/L Chloride (98-107) mmol/L Carbon Dioxide (22-30) mmol/L Anion Gap (5-15) MEQ/L BUN (9-20) mg/dL Creatinine (0.66-1.25) mg/dL Estimated GFR ML/MIN Glucose (74-106) mg/dL Lactic Acid (0.4-2.0) Calcium (8.4-10.2) mg/dL Total Bilirubin (0.2-1.3) mg/dL AST (17-59) U/L ALT (0-50) U/L Alkaline Phosphatase (38-126) U/L Serum Total Protein (6.3-8.2) g/dL Albumin (3.5-5.0) g/dL Slides for Path Review YES - Progress Progress: improved Progress Note: Case discussed with Dr. Bender at 3:[address] Bender is the ER physician at [facility] who accepts transfer. Plan of care discussed with patient and . They agree to transfer to [facility] for further evaluation and treatment. Patient is a 52-year-old male presents to our ED for evaluation of pain to his left shoulder. Patient had a cardiac cath performed on 09 February. Over the fo llowing few days patient noticed the left upper extremity, swollen and tender. Patient is a hemodialysis patient is well. Ultrasound in our ED reveals an extensive left upper extremity DVT per machine sizer. No formal report present at this time. Patient is due for his hemodialysis session. Patient obtains his hemodialysis 5 days a week. Patient has off Thursday and Thursday. Patient missed his Thursday hemodialysis and is due for his hemodialysis today. Dr. Duckworth and states they will initiate anticoagulation and there facility. Patient reassessed. He is resting comfortably. We will prepare to transfer patient to [facility] at this time. Patient voices no other complaints or concerns at this time. Portions of this note were created with voice recognition technology. There may be grammatical, spelling, punctuation or sound alike errors Complexity of problems addressed is moderate acute complicated. No critical care time Complexity of data reviewed and analyzed is extensive. Test ordered including labs and imaging study. Results reviewed and analyzed by Dr. Perry. Results were correlated clinically with history and physical exam. Patient has an extensive DVT based on ultrasound verbal report from machine sizer. Patient will likely require anticoagulation. Risk of complication and or risk of morbidity/mortality of patient management is low. Per receiving physician they will initiate anticoagulation and there are ED after consultation with appropriate services in light of patient's recent procedure and renal function. Patient will be transferred at this time. Vital stable. Time spent to transfer patient is approximately 15 minutes. Plan of care established for shared decision making. Patient voices no other complaints or concerns at this time. Portions of this note were created with voice recognition technology. 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 Patient's Procedure was performed at [facility] in [place]. 02/14/23 15:57 Counseled pt/family regarding: lab results, diagnosis, rad results - Departure Departure Disposition: Transfer Clinical Impression: Left upper extremity deep vein thrombosis, Left arm pain, End stage renal disease Condition: Stable Critical Care Time: No Referrals: PETE LEACH [Primary Care Provider] - Follow up/PCP as directed
[2023-02-14 13:14] LABS: Absolute Neutrophil Ct (ANC) 5.24 x10^3/uL (1.4-6.9); BASOPHIL % 0.6 % (0.0-0.4); Basophil (Absolute #) 0.04 x10^3/uL (0-0.4); Eosinophil % 1.5 % (0.00-5.0); Hemoglobin 12.8 g/dL (12.5-18.0); IMMATURE GRAN # 0.03 x10^3u/L (0.00-0.03); IMMATURE GRAN % 0.5 % (0.00-0.4); Lymphocyte (Absolute #) 0.66 x10^3/uL (1.0-4.6); Lymphocytes % 10.1 % (24.0-44.0); Mean Cell Volume 95.4 fL (78-100); Mean Corpuscular Hgb Concent. 34.6 g/dL (32-36); Monocyte (Absolute #) 0.46 x10^3/uL (0.0-1.3); Neutrophil % 80.3 % (36.0-66.0); Platelet Count 115 x10^3/uL (150-450); Red Blood Count 3.88 x10^6/uL (4.1-5.6); Red Cell Distribution Width 12.5 % (11.5-14.0); White Blood Count 6.5 x10^3/uL (4.0-10.5)
[2023-02-14 13:26] LABS: ALBUMIN 4.5 g/dL (3.5-5.0); ANION GAP 27.5 MEQ/L (5-15); BILIRUBIN,TOTAL 0.9 mg/dL (0.2-1.3); Calcium 7.9 mg/dL (8.4-10.2); Potassium 5.7 mmol/L (3.5-5.1); Total Protein 7.4 g/dL (6.3-8.2)
[2023-02-14 13:33] LABS: Creatinine 1 17.22 mg/dL (0.66-1.25); EST GLOMERULAR FILTRATION RATE 3.1 ML/MIN
[2023-02-14 14:44] LABS: Slide Review 1 YES
[2023-02-14 14:51] VITALS: PULSE 70
[2023-02-14] MEDS ORDERED: PERCOCET TABLET 5/325MG PO STA (15:33)
[2023-02-14] MEDS ORDERED: PERCOCET TABLET 5/325MG ONE (15:33)
[2023-02-14 16:09] VITALS: BP 93/53; O2SAT 99
--- NOTE | 2023-02-14 20:29 | XRAY ---
Indication: Left arm pain and swelling. History left arm fistula was and stents. Two-dimensional sonogram and color Doppler imaging of the major venous vessels of the left upper extremity performed. Comparison: None Left cephalic vein distended with occluded thrombus. No thrombus in the remaining visualized left jugular, subclavian, axillary, basilic, brachial, median cubital, ulnar, and radial veins. Patent stent. Impression: Occluding thrombus in cephalic vein. Comment: Preliminary report was given.
== END 2023-02-14 16:20 | disposition short-term general hospital (02) ==
LOC: ED 12:09
DX: I82.622 Acute embolism and thrombosis of deep veins of left upper extremity (principal); M79.602 Pain in left arm; N05.9 Unspecified nephritic syndrome with unspecified morphologic changes; N18.6 End stage renal disease; Z99.2 Dependence on renal dialysis; I10 Essential (primary) hypertension; Z79.899 Other long term (current) drug therapy; Z72.0 Tobacco use
CPT/HCPCS: 36000; 36415; 80053; 83605; 85025; 85652; 86140; 87040; 93971; 94760; 99284; A9270-GY

== ENCOUNTER 2023-12-24 15:11 | Emergency (ER) | payer OTHER ==
[2023-12-24 15:28] VITALS: RESP 18; TEMP 98.5; O2SAT 94
--- NOTE | 2023-12-24 16:07 | XRAY ---
Indication: Pain. Infection. Comparison: November 18, 2023 3 view right hand unchanged again demonstrating old distal 5th metacarpal fracture and moderate scattered vascular calcifications. No new/acute bony, articular, or soft tissue abnormalities.
[2023-12-24] MEDS ORDERED: SUBLIMAZE 100 MCG/2 ML ONE (16:15)
[2023-12-24] MEDS: SUBLIMAZE 100 MCG/2 ML IM ONE (16:17)
[2023-12-24 16:31] VITALS: BP 105/57; PULSE 80
--- NOTE | 2023-12-24 16:59 | ERPHSYRPT ---
- History of Present Illness Time Seen by Provider: 12/24/23 15:40 Source: patient Exam Limitations: no limitations Patient Subjective Stated Complaint: C/O pain to tip of 2nd finger on right hand. Indicates pain has been for a few months. Has an appointment in a few weeks with a specialist. Triage Nursing Assessment: Patient ambulated back to ER. He is alert and oriented. Scab noted to tip of right second digit. Physician History: 53-year-old male with history of ESRD on dialysis presented in the ER with complaint of right index fingertip pain and blackening which has been going on for the last few months. Patient reports he has been taking Percocet but sometimes it does not work. He is in the process of seeing rheumatology for possible lupus. Denies any fall or trauma. Patient reported initially it was t urning blue/purple with increasing pain. No swelling or redness reported. Pain gets unbearable at times. No fever or chills reported. Allergies/Adverse Reactions: ciprofloxacin [From Cipro] Allergy (Severe, Verified 12/24/23 15:18) Difficulty Breathing ciprofloxacin HCl [From Cipro] Allergy (Severe, Verified 12/24/23 15:18) Difficulty Breathing etodolac [From Lodine] Allergy (Severe, Verified 12/24/23 15:18) Difficulty Breathing cephalexin Allergy (Verified 12/24/23 15:18) Anaphylactic Reaction chlorhexidine Allergy (Verified 12/24/23 15:18) polystyrene sulfonate [From Kayexalate] Allergy (Verified 12/24/23 15:18) Home Medications: Albuterol Sulfate [Albuterol Sulfate Hfa] 1 puff PO Q4-6HPRN PRN 02/14/23 [History] Heparin 1000 unit/ml 10ml vial [Heparin 1000 units/ml (10 Ml vial)] See Rx Instructions .ROUTE .COMPLEX 02/14/23 [History] Lidocaine/Prilocaine [Lidocaine-Prilocaine Cream] 1 appful TOP WEEKLY 02/14/23 [History] PANTOPRAZOLE 40 mg Tablet [Protonix 40MG Tablet] 1 tab PO DAILY 02/14/23 [History] Hx Tetanus, Diphtheria Vaccination/Date Given: Yes Hx Influenza Vaccination/Date Given: Yes Hx Pneumococcal Vaccination/Date Given: No Immunizations Up to Date: Yes Travel Risk - International Travel Have you traveled outside of the country in past 3 weeks: No - Emerging Infectious Disease Are you exhibiting symptoms associated with any current EIDs: No - Review of Systems Constitutional: No Symptoms Ears, Nose, & Throat: No Symptoms Respiratory: No Symptoms Cardiac: No Symptoms Genitourinary Symptoms: No Symptoms Musculoskeletal: Joint Pain Skin: Skin Lesions Neurological: No Symptoms - Past Medical History Pertinent Past Medical History: Yes Neurological History: No Pertinent History ENT History: No Pertinent History Cardiac History: Hypertension Respiratory History: Asthma Endocrine Medical History: No Pertinent History Musculoskeletal History: No Pertinent History GI Medical History: GERD History: Dialysis, Renal Disease Psycho-Social History: No Pertinent History Male Reproductive Disorders: No Pertinent History Other Medical History: LEFT AV FISTULA, Lupus, Dr. Augustin manages chronic pain - Past Surgical History Past Surgical History: Yes Neuro Surgical History: No Pertinent History Cardiac: No Pertinent History Respiratory: No Pertinent History Gastrointestinal: No Pertinent History Genitourinary: Other Musculoskeletal: No Pertinent History Male Surgical History: No Pertinent History Other Surgical History: bladder scope - renal biopsy - fistula and then graft - permacath placement and removal, LUE angioplasty - Social History Smoking Status: Current every day smoker How long have you smoked: ? Exposure to second hand smoke: No Drug Use: none Patient Lives Alone: No - Social Determinants of Health Will the patient participate in the screening: Declined to provide - Nursing Vital Signs Nursing Vital Signs: Initial Vital Signs Temperature 98.5 F 12/24/23 15:12 Pulse Rate 90 12/24/23 15:12 Respiratory Rate 18 12/24/23 15:12 Blood Pressure 108/59 12/24/23 15:12 O2 Sat by Pulse Oximetry 94 L 12/24/23 15:12 Pain Scale Pain Intensity 9 - Physical Exam General Appearance: no apparent distress, alert Eyes, Ears, Nose, Throat Exam: normal ENT inspection Neck Exam: normal inspection, full range of motion Cardiovascular/Respiratory Exam: normal breath sounds, regular rate/rhythm Hand Exam: soft tissue tenderness (Right index distal tip blackening, tender middle and distal phalanx., Blanchable, delayed cap refill, painful movements at interphalangeal joints. No erythema or swelling.) Neuro/Tendon Exam: normal sensation, normal motor functions, normal tendon functions Mental Status Exam: alert, oriented x 3, cooperative Skin Exam: normal color SpO2 Interpretation: normal SpO2: 94 O2 Delivery: Room Air Ordered Tests: Active Orders 24 hr Category Date Time Status HAND (MINIMUM 3 VIEWS) Stat Exams 12/24/23 15:48 Completed Medication Summary Discontinued Medications Generic Name Dose Route Start Last Admin Trade Name Dayna PRN Reason Stop Dose Admin Fentanyl Citrate 50 mcg 12/24/23 15:48 12/24/23 16:17 Fentanyl Citrate 100 Mcg/2 Ml* Vial IM 12/24/23 15:49 50 mcg STAT ONE Administration Fentanyl Citrate Confirm 12/24/23 16:15 Fentanyl Citrate 100 Mcg/2 Ml* Vial Administered 12/24/23 16:16 Dose 100 mcg .ROUTE .[employer] ONE - Progress Progress: improved, pain not gone completely Progress Note: 12/24/23 16:59 53-year-old is evaluated in the ER for right index fingertip blackening and pain. Patient has symptoms going on for the last few months. He has a fistula made in the right forearm which does not work anymore. Patient x-rays are negative for acute fracture or dislocation. No signs of cellulitis. I believe patient is having ischemia. I do not think patient pain is related to lupus and recommended follow-up with his vascular surgeon who made the fistulous and have done some other vascular work before at [facility] for further evaluation. It is small vessel disease, do not think needs emergent transfer and this is chronic been going on for quite some time. 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 Recommended continue with Percocet and outpatient follow-up. Discussed signs symptoms of worsening needing return to ER which he seems understanding. Counseled pt/family regarding: diagnosis, need for follow-up, rad results Medical Desision Making - Diagnostic Testing Diagnostic test were ordered, analyzed, and reviewed by me: Yes Radiological Interpretation: Reviewed by me - Risk of complications The pt has a mod risk of morbidity or mortality based on: Need for prescription drug management - Departure Departure Disposition: Home Clinical Impression: Finger pain, right Condition: Stable Critical Care Time: No Referrals: PETE LEACH [Primary Care Provider] - Follow up with PCP 1 day Instructions: Gangrene (DC) Additional Instructions: Follow-up with your vascular surgeon for reevaluation, call for appointment in the morning. Return to ER for excruciating pain, bluish discoloration of the finger, hand etc.
== END 2023-12-24 17:17 | disposition home or self-care (01) ==
LOC: ED 15:11
DX: M79.644 Pain in right finger(s) (principal); I12.0 Hypertensive chronic kidney disease with stage 5 chronic kidney disease or end stage renal disease; N18.6 End stage renal disease; Z79.899 Other long term (current) drug therapy; Z72.0 Tobacco use; Z99.2 Dependence on renal dialysis
CPT/HCPCS: 73130; 96372; 99283; J3010